=== PATIENT | male | born 1950 | race Caucasian/White ===

== ENCOUNTER 2020-07-16 22:38 | Inpatient (IN) | payer MEDICARE, MEDICAID, SELFPAY ==
--- NOTE | ~2020-07-16 | XR_ITS ---
EXAMINATION: XR abdomen NG/feed tube rechec EXAM DATE: 07/17/2020 07:56 INDICATION: NG recheck TECHNIQUE: Frontal projection(s) of the abdomen for interpretation. Comparison is made to prior exami nation from earlier same day. FINDINGS: The feeding tube has been advanced, both dependent and side-port project over gastric body, expected position. Multiple loops of severely distended air-filled small bowel and moderate amount o f colonic stool again noted. There is no organomegaly. There are no osseous abnormalities identified. IMPRESSION: Nasogastric tube in position. Severely dilated small bowel unchanged. Reviewed, dictated and finalized at location A. IC PUMP TRUCK DRIVER IMPRESSION: Nasogastric tube in position. Severely dilated small bowel unchange d.
--- NOTE | ~2020-07-16 | XR_ITS ---
EXAMINATION: XR abdomen obstructive series DATE: 07/21/2020 10:25 INDICATION: Abdominal distention. TECHNIQUE: Upright and supine views of the abdomen on 3 radiographs were obtained. COMPARISON: Small bowel series 07/19/2020 FINDINGS: There are multiple dilated loops of small bowel. There is oral contrast in the colon and ap pendix. No free intraperitoneal gas. IMPRESSION: 1. Persistently dilated small bowel, likely adynamic ileus. Reviewed, dictated and finalized at location B. UTIVE SALES MANAGER
--- NOTE | ~2020-07-16 | XR_ITS ---
MODIFIED ESOPHAGRAM HISTORY: Dysphagia. TECHNIQUE: Modified barium esophagram was performed by speech pathologist under radiologist fluorosco pic guidance. This was recorded on tape. The exam was reviewed on 07/20/2020 09:23 PULLER OVER. The DAP for this procedure was 1.2 Gycm2. Fluoroscopy time is 1.7 minutes. One fluoroscopic image. FINDINGS: Lateral projection of the cervical spine demonstrates normal alignment. There is trace pe netration with thin liquids without evidence for aspiration. There is normal swallowing function with the remainder of the consistencies.. IMPRESSION: 1: Trace penetration with thin liquids. No aspiration identified. 2: Please refer to speech pathologist report for additional detail. Reviewed, dictated and finalized at location A. ER OVER
--- NOTE | ~2020-07-16 | XR_ITS ---
XR abdomen/kub 1V 07/19/2020 05:43 Indication: Small bowel obstruction Procedure: KUB Comparison: Comparison to multiple prior studies sequentially, with oldest reviewed study dated 10/2019. Findings: NG tube in the stomach. Moderate gas in the colon. No significant small bowel dilation. Mod erate colonic fecal loading. Impression: 1: Nonobstructive bowel gas pattern. Reviewed, dictated and finalized at location A. NG MACHINE ADJUSTER Impression: 1: Nonobstructive bowel gas pattern.
--- NOTE | ~2020-07-16 | US_ITS ---
US right upper quadrant INDICATION: Cirrhosis PROCEDURE: Realtime right upper abdominal ultrasound. COMPARISON: No prior studies for comparison. FINDINGS: The pancreas is normal without focal mass or pancreatic ductal dilation. Liver echotexture is increased, consistent with fatty infiltration. Liver surface is smooth. There is normal directio nal flow in the portal vein. The gallbladder is normal without stones, gallbladder wall thickening or pericholecystic fluid. Comm on bile duct measures 3.7 mm. No sonographic Fontanez's sign. IMPRESSION: 1: Hepatic steatosis. Reviewed, dictated and finalized at location B. GER ADULT IMPRESSION: 1: Hepatic steatosis.
--- NOTE | ~2020-07-16 | XR_ITS ---
SMALL BOWEL SERIES ONLY INDICATION: Small bowel obstruction TECHNIQUE: Serial plain films and fluoroscopic spot films are performed following NG tube administrat ion of 100 cc Omnipaque 350. 0.5 minutes of fluoroscopy. DAP is 11.3. COMPARISON: KUB dated 07/19/2020 FINDINGS: Contrast was followed sequentially through the small bowel. The mucosal pattern is unremar kable. Small bowel is mildly dilated, although no transition point is identified. No evidence for str icture, polyp, diverticula or obstruction of flow of contrast. Transit time to the colon is normal me asuring less than 1 hour. IMPRESSION: 1: Dilated small bowel without delay transit to the colon or focal transition point, most likely asha namic ileus. Reviewed, dictated and finalized at location A. IED RESEARCHER IMPRESSION: 1: Dilated small bowel without delay transit to the colon or focal transition point, most likely adynamic ileus.
--- NOTE | ~2020-07-16 | CT_ITS ---
EXAMINATION: CT abdomen pelvis w con DATE: 07/17/2020 00:04 INDICATION: Dominant all distention TECHNIQUE: Computed tomography (CT) of the abdomen and pelvis was performed with 100 cc Omnipaque 350 intravenous contrast. The dose-length product was 1755.13 mGy-cm. Automated exposure control and ite rative reconstruction technique were employed. COMPARISON: None. FINDINGS: Patchy infiltrates of the lower lung zones. Calcified granuloma left lower lobe. Mild thick ening of the distal esophagus, suspicious for esophagitis. Trace pleural effusions. No pericardial effusion. The liver, spleen, pancreas, adrenal glands are unremarkable. There are bilateral renal cysts. Gallbl adder is contracted. Dilated small bowel loops with decompressed distal small bowel, compatible with obstruction. There is moderate retained fecal material in the distal colon. Bladder is moderately dis tended. Mild spondylosis of the lower thoracic and lumbar spine. No acute bone or joint abnormality i s identified. IMPRESSION: 1. Small bowel obstruction. No definite transition site not identified. 2: Patchy infiltrates of the lower lung zones which may represent atelectasis, scarring and/or pneumo clemente. 3: Thickening of the distal esophagus, suspicious for esophagitis. 4: Trace pleural effusions. Reviewed, dictated and finalized at location B. UTER NETWORKING INSTRUCTOR IMPRESSION: 1. Small bowel obstruction. No definite transition site not identified. 2: Patchy infiltrates of the lower lung zones which may represent atelectasis, scarring and/or pneumonia. 3: Thickening of the distal esophagus, suspicious for esophagitis. 4: Trace pleural effusions.
--- NOTE | ~2020-07-16 | XR_ITS ---
EXAMINATION: XR abdomen/kub 1V EXAM DATE: 07/18/2020 06:21 INDICATION: Small bowel obstruction . TECHNIQUE: Frontal projection(s) of the abdomen for interpretation. Comparison is made to prior exami nation from 07/17/2020. FINDINGS: Feeding tube is in position. There is continued interval improvement in previously seen mo derately distended small bowel, only mildly distended today. There is moderate amount of colonic stoo l and gas. Consider water soluble small bowel series patient is clinically improved. IMPRESSION: 1. Feeding tube in position. 2. Improved, now mild small bowel dilation. Consider water-soluble upper GI if patient is clinically ready. 3. Constipation. Reviewed, dictated and finalized at location A. M CLOTHES PRESS OPERATOR
--- NOTE | ~2020-07-16 | XR_ITS ---
XR abdomen/kub 1V 07/20/2020 09:00 Indication: Small bowel obstruction Procedure: KUB Comparison: Comparison to multiple prior studies sequentially, with oldest reviewed study dated 10/2019. Findings: Contrast is noted throughout the colon with air-fluid levels. The appendix is visualized. M ildly dilated small bowel loops are obscured by contrast. Impression: 1: Moderately distended small bowel and colon, most likely adynamic ileus. Reviewed, dictated and finalized at location A. REMENT CONSULTANT Impression: 1: Moderately distended small bowel and colon, most likely adynamic ileus.
--- NOTE | ~2020-07-16 | XR_ITS ---
EXAMINATION: XR abdomen NG/feed tube rechec EXAM DATE: 07/17/2020 06:29 INDICATION: NG placement TECHNIQUE: Frontal projection(s) of the abdomen for interpretation. Comparison is made to prior exami nation from 07/17/2020. FINDINGS: Feeding tube tip has been advanced, now projects over left upper quadrant, expected locatio n of gastric cardia. Multiple loops of severely distended air-filled small bowel consistent with obst ruction. Moderate amount of colonic stool and gas. IMPRESSION: Feeding tube tip overlying gastric cardia region. Reviewed, dictated and finalized at location A. PROPELLED DREDGE OPERATOR
--- NOTE | ~2020-07-16 | CT_ITS ---
EXAMINATION: CT brain wo con EXAM DATE: 07/17/2020 12:57 INDICATION: Dementia. TECHNIQUE: Spiral CT of the head was performed without contrast. Axial, coronal and sagittal images were reviewed. The dose-length product (DLP) for this examination was 605.33 mGy-cm. The exposure w as tailored according to patient size, and iterative reconstruction (ASIR) was used as additional dos e reduction technique. There is no prior study for comparison. FINDINGS: There is no acute intraparenchymal hemorrhage. No evidence of intraparenchymal brain mass lesion. No evidence of acute infarction. Please note that initial head CT has limited sensitivity f or small or acute infarctions. There are punctate old left basal ganglia and caudate head lacunar in farctions. There is mild periventricular and subcortical hypodensity, nonspecific but probably relat ed to small vessel ischemic disease. There is mild to moderate prominence of the sulci and ventricl es related to cerebral atrophy. There is intracranial carotid arteriosclerosis. There are no extra -axial collections. There is no mass effect or midline shift. The orbits are unremarkable. Soft ti ssue is unremarkable. The visualized sinuses and mastoid air cells are well aerated. IMPRESSION: 1. Punctate old left basal ganglia, caudate head lacunar infarctions. 2. Chronic age related findings. Reviewed, dictated and finalized at location A. ER
--- NOTE | ~2020-07-16 | XR_ITS ---
EXAMINATION: XR abdomen NG/feed tube insert EXAM DATE: 07/17/2020 12:06 INDICATION: NG placed TECHNIQUE: Frontal projection(s) of the abdomen for interpretation. Comparison is made to prior exami nation from earlier same date. FINDINGS: Feeding tube tip and side-port project over left upper quadrant, adequate. There are multip le loops of moderately dilated air-filled small bowel, mild interval improvement. There is no organom egaly. Moderate amount of colonic stool and gas. IMPRESSION: 1. Feeding tube in position. 2. Moderately distended small bowel, mild improvement. Reviewed, dictated and finalized at location A. GHT TRUCKER
--- NOTE | ~2020-07-16 | XR_ITS ---
XR chest 2V 07/20/2020 09:00 Indication: Leukocytosis. Concern for aspiration. Procedure: 2 view chest Comparison: No prior studies for comparison. Findings: Left lower lobe airspace disease. Possible small left effusion. Right basilar atelectasis. Heart size normal. No edema or pneumothorax. No acute osseous abnormality. Impression: 1: Left lower lobe airspace disease, atelectasis versus pneumonia. 2: Possible small left pleural effusion. Reviewed, dictated and finalized at location A. .NET DEVELOPER Impression: 1: Left lower lobe airspace disease, atelectasis versus pneumonia. 2: Possible small left pleural effusion.
--- NOTE | ~2020-07-16 | XR_ITS ---
EXAMINATION: XR abdomen NG/feed tube insert EXAM DATE: 07/17/2020 02:17 INDICATION: Ngt Placement . TECHNIQUE: Frontal projection(s) of the abdomen for interpretation. Comparison is made to prior exami nation from 01/26/2004. FINDINGS: Feeding tube tip is just above the gastroesophageal junction. There are multiple loops of severely dilated air-filled small bowel in the midabdomen, consistent with small bowel obstruction. S ome bibasilar atelectasis. Contrast within the renal collecting system. IMPRESSION: 1. Feeding tube tip above the gastroesophageal junction, could be advanced 5-10 cm. 2. Small bowel obstruction. 3. Basilar atelectasis. Reviewed, dictated and finalized at location A. TIONAL EDUCATION PROFESSIONAL IMPRESSION: 1. Feeding tube tip above the gastroesophageal junction, could be advanced 5-1 0 cm. 2. Small bowel obstruction. 3. Basilar atelectasis.
[2020-07-16 22:47] VITALS: BP 118/67; PULSE 105; RESP 17; TEMP 36.8; O2SAT 94
--- NOTE | 2020-07-16 23:17 | ED.GIBLEED ---
HPI - GI Bleed General Chief complaint: GI Bleed Stated complaint: COFFEE GROUND EMESIS X 1 Time Seen by Provider: 07/16/20 22:57 Source: patient Mode of arrival: ambulatory Limitations: no limitations History of Present Illness HPI Narrative: Patient is a 69-year-old male complaining of vomiting, bright red blood, one episode started tonight. Patient states that he is on Eliquis. Patient denies any abdominal pain, melena, hematochezia or hemoptysis. Patient denies any chest pain or shortness of breath. Patient does have abdominal distention which he states is nothing new, history of liver cirrhosis. Patient is a poor historian. MD complaint: gross hematemesis Related Data Home Medications Medication Instructions Recorded Confirmed atorvastatin 07/16/20 benztropine 07/16/20 clozapine mg 07/16/20 fenofibrate micronized mg 07/16/20 gentamicin drp 07/16/20 lactulose 07/16/20 risperidone mg 07/16/20 risperidone mg 07/16/20 sertraline mg 07/16/20 07/16/20 Allergies Allergy/AdvReac Type Severity Reaction Status Date / Time No Known Allergies Allergy Verified 07/16/20 23:44 Review of Systems Review of Systems: All systems reviewed & are unremarkable except as noted in HPI and below Constitutional: Constitutional: Denies body ache(s), Denies chills, Denies excessive sweating, Denies fatigue, Denies fever(s), Denies headache(s), Denies lethargy, Denies malaise, Denies weakness and Denies weight loss Eyes: Eyes: Denies blurry vision, Denies change in vision and Denies loss of vision ENT: Denies dizziness, Denies ear discharge, Denies headache(s), Denies lip swelling, Denies epistaxis, Denies nasal congestion, Denies neck pain, Denies throat swelling and Denies tongue swelling Cardiovascular: Cardiovascular: Denies chest pain, Denies chest pain at rest, Denies chest pain with activity, Denies diaphoresis, Denies rapid heart rate, Denies edema, Denies irregular heart rhythm, Denies lightheadedness, Denies palpitations, Denies dyspnea and Denies dyspnea on exertion Respiratory: Respiratory: Denies chest congestion, Denies cough, Denies hemoptysis, Denies dyspnea and Denies dyspnea on exertion Gastrointestinal: Gastrointestinal: Denies abdominal pain, Denies melena, Denies hematochezia and Denies diarrhea Musculoskeletal: Musculoskeletal: Denies abnormal gait, Denies deformity, Denies joint swelling, Denies limited range of motion, Denies neck pain and Denies numbness Neurologic: Denies Abnormal speech present, Denies abnormal gait, Denies dizziness, Denies headache(s), Denies focal weakness, Denies loss of vision, Denies numbness, Denies Other visual disturbances, Denies Sensory deficit (Neuro) and Denies weakness Psychiatric: Psychiatric: Denies confusion, Denies depression, Denies auditory hallucinations, Denies homicidal ideation and Denies suicidal ideation Endocrine: Endocrine: Denies cold intolerance, Denies excessive sweating, Denies fatigue, Denies heat intolerance and Denies palpitations Hematologic/Lymphatic: Hematologic/Lymphatic: Denies easy bleeding and Denies easy bruising Allergic/Immunologic: Allergic/Immunologic: Denies lip swelling, Denies throat swelling and Denies tongue swelling PMF Social History Social History Gender identity (if verbalized by the patient): Male Exam Const: General: cooperative, well developed, alert and awake Orientation/consciousness: oriented to person and oriented to place Limitations: no limitations Other: Moderate distress, frail, ill-appearing HENMT: Head: normal to inspection, normocephalic and atraumatic Ears: hearing grossly normal bilaterally, TM normal on the right and TM normal on the left General nose exam: Normal external nose present, Normal nares present and No nasal discharge present Face and sinus: normal facial exam Mouth: Yes Normal oral and palatal mucosa present, Yes lip normal, Yes tongue normal and Yes oropharynx normal Throat: posterior
--- NOTE | 2020-07-16 23:20 | PC.NURSE ---
patient brought to ED room 10 via EMS tonight from [facility] with reported hematoemesis. patient found wandering in hallway shortly after arrival. redirected back to room 10. patient changed into gown. placed on rail manager. patient is alert but oriented x 1-2 at best. unclear on patient's baseline. will review [facility] records. SL placed. labs drawn and sent. patient denies nausea. patient denies pain. MD to room now.
[2020-07-16 23:25] LABS: Basophils Percent Auto 0.2 % (0.2-1.2); Hematocrit 40.9 % (42.0-52.0); Hemoglobin 13.2 g/dL (14.0-18.0); Immature Granulocyte Absolute 0.04 K/mm3 (0.00-0.031); Immature Granulocyte Percent A 0.3 % (0-0.5); Lymphocytes Absolute Auto 2.27 K/mm3 (0.9-3.2); Lymphocytes Percent Auto 18.8 % (18.3-44.2); Mean Corpuscular HGB Conc 32.3 g/dl (32-36); Mean Corpuscular Hemoglobin 29.4 pg (26-34); Mean Corpuscular Volume 91.1 fl (80-100); Mean Platelet Volume 9.9 fl (7.4-10.4); Monocytes Absolute Auto 1.2 K/mm3 (0.1-0.6); Monocytes Percent Auto 10.2 % (2.6-8.5); Neutrophils Absolute Auto 8.5 K/mm3 (1.3-6.7); Neutrophils Percent Auto 70.5 % (45.5-73.1); Platelet Count Result 300 k/mm3 (150-375); Red Blood Count 4.49 M/mm3 (4.6-6.20); Red Cell Distribution Width 14.9 % (11.5-14.5); White Blood Count 12.1 K/mm3 (4.5-10.0)
--- NOTE | 2020-07-16 23:35 | PC.NURSE ---
report given to Lauren BROWN. records from [place] reviewed. chart updated.
[2020-07-16 23:36] LABS: Partial Thromboplastin Time 24.6 SECONDS (22.3-36.8); Prothrombin Time 13.3 Seconds (11.1-14.7)
[2020-07-16 23:37] LABS: Alanine Aminotransferase 15 U/L (4-50); Albumin Level 4.1 g/dL (3.5-5.1); Alkaline Phosphatase 67 U/L (38-126); Anion Gap 10 mmol/L (8-16); Aspartate Amino Transferase 23 U/L (17-59); Bilirubin,Total 0.4 mg/dL (0.2-1.3); Blood Urea Nitrogen 48 mg/dL (9-20); Calcium 9.2 mg/dL (8.4-10.2); Carbon Dioxide 30 mmol/L (22-30); Chloride 102 mmol/L (98-107); Estimated Glomerular Filt Rate 47; Glucose 157 mg/dL (75-110); Lipase 50 U/L (23-300); Potassium 3.5 mmol/L (3.4-5.0); Sodium 142 mmol/L (137-145)
[2020-07-16 23:42] VITALS: PULSE 100; RESP 22; O2SAT 93
[2020-07-16 23:50] VITALS: PULSE 110; TEMP 36.9
[2020-07-16] MEDS: PANTOPRAZOLE SODIUM IV 40 MG VIAL 80 MG IV PUSH (23:50)
[2020-07-16] MEDS: LACTATED RINGERS 1,000 ML 100 ML IV CONT (23:50)
--- NOTE | 2020-07-16 23:52 | PC.NURSE ---
patient has documentation chart for code status and POA.
[2020-07-17] VITALS (13 sets, daily range): BP systolic 136–160; BP diastolic 68–93; PULSE 88–101; RESP 16–33; TEMP 36.6–36.9; O2SAT 92–96; BMI 28.5
[2020-07-17] MEDS: HYDROmorphone HCL INJ (*CRX) 1 MG/ML SYR 0.5 MG IV PUSH (01:33)
[2020-07-17] MEDS: LORazepam INJ (*CRX) 2 MG/ML VIAL 1 MG IV PUSH ×2 (01:33→01:48)
--- NOTE | 2020-07-17 03:54 | ADMGEN ---
This patient, John Youssef Jr, was admitted to 2 Medical Room 240-. Patient/family oriented to hospital policies and general routines including ID bracelet, bed and alarms, visiting hours, pain management, procedures, bathroom and other care routines, personal items, smoking policy, room service/diet, and visiting hours. Information on how to activate the Rapid Response Team has been discussed. Patient/Family are encouraged to report perceived risks to care and to ask questions if they do not understand what they are told or what they should do.
--- NOTE | 2020-07-17 03:54 | PC.NURSE ---
Pt arrived to floor sedated from dilaudid and ativan given in ED. Pt on RA and has stable vitals. Pt arousable to pain for only a few seconds before falling back asleep.
[2020-07-17 09:02] LABS: Lactic Acid Reflex 1.8 mmol/L (0.7-2.1)
--- NOTE | 2020-07-17 09:24 | PM.CNGS ---
Assessment and Plan Assessment and plan (1) Small bowel obstruction: Code(s): K56.609 - Unspecified intestinal obstruction, unspecified as to partial versus complete obstruction Status: Acute Assessment and Plan: This patient presented with hematemesis to the ER and the CT scan of the abdomen and pelvis ended up showing dilated small bowel loops with decompressed distal small bowel, compatible with a small bowel obstruction, as well as a moderate amount of stool in the distal colon. He is unable to provide a history due to his mentation, but on exam he does not appear to have any obvious abdominal scars suggesting he has had previous abdominal surgery. I discussed the case with Dr. Starr who also reviewed the imaging with the Radiologist. We will try treating this conservatively with NG tube decompression, bowel rest, and IV fluids. He is not having any complaints of abdominal pain. May need to consider other options of how to keep the NG tube in place if his confusion does not improve soon. We will continue to monitor the patient with serial abdominal exams and imaging daily. May consider a gastrografin small bowel follow through in a few days after allowing some time for NG tube decompression, to further assess the obstruction. (2) Upper gastrointestinal hemorrhage: Code(s): K92.2 - Gastrointestinal hemorrhage, unspecified Status: Acute Assessment and Plan: Hematemesis prior to admission, but none witnessed since being in the hospital. Thickening of the distal esophagus noted on CT a/p. H/H stable. Continue to trend labs. Gastroenterology has been consulted. Will await their recommendations. (3) Constipation: Qualifiers: Constipation type: unspecified constipation type Qualified Code(s): K59.00 - Constipation, unspecified Code(s): K59.00 - Constipation, unspecified Status: Chronic Assessment and Plan: The amount of stool on the CT scan does suggest that he deals with constipation. We will need to start a bowel regimen once he is started on a diet that will also likely need to be continued on discharge. (4) Urinary retention: Code(s): R33.9 - Retention of urine, unspecified Status: Acute Assessment and Plan: Per the nurse, patient was going to have a straight cath for bladder scan of 500 cc. This could resolve once his mentation improves. Management per Hospitalist. (5) Ascites: Code(s): R18.8 - Other ascites Status: Acute (6) Altered mental status: Code(s): R41.82 - Altered mental status, unspecified Status: Acute Assessment and Plan: Apparently the patient received some Ativan and narcotics prior to my arrival which has made him more lethargic and confused. Management per Hospitalist. Hopefully this improves as the medications wear off. History of Present Illness Consult details Consult date: 07/17/20 Reason for consult: other (Small bowel obstruction) Requesting physician: Harris Grossman MD Narrative: This is a 69-year-old male who presented to the emergency department after having hematemesis witnessed at the intermediate. CT scan of the abdomen and pelvis in the ER demonstrated a small bowel obstruction with no definite transition site identified, patchy infiltrates of the lower lung zones which may represent atelectasis, scarring and/or pneumonia, thickening of the distal esophagus, suspicious for esophagitis, and trace pleural effusions. Labs revealed a white blood cell count of 12,200, hemoglobin 13.2, and hematocrit 40.9. The patient was admitted to the Hospitalist service. Gastroenterology was consulted due to the hematemesis. Our service was consulted for the findings of the small bowel obstruction on the CT scan. An NG tube was placed and KUB this morning around 0730 showed good placement. Upon my arrival into his room this morning, the NG tube was lying in his bed out of his nose. It appears he pulled it out of p
--- NOTE | 2020-07-17 10:32 | PM.IMHP ---
H&P: HPI History of Present Illness Date/Time: 07/17/20 10:32 Chief complaint: Bowel Obstruction, Upper GI Bleed Narrative: John Youssef Jr is a 69 year old male with PMH significant for schizophrenia, Tourette's disorder, dementia, hyperlipidemia, anxiety, dysphagia, and COPD who presented to the emergency department from [facility] for the evaluation of coffee ground emesis x2 on Tuesday and concern for bowel obstruction. The patient is a poor historian and his sister reports that he is minimally verbal and not very interactive. History is obtained from Dr. Reid, the [facility] staff, and the patient's sister and POA, Irma Dickerson. 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 The RN reports that he had dark brown emesis on Tuesday afternoon with absent bowel sounds in the lower quadrants. The patient told the RN it had been awhile since his last bowel movement. He was evaluated by Dr. Reid at the facility and sent to the emergency department due to concern for bowel obstruction. He currently endorses abdominal pain. He points to the LLQ and debbi-umbilical area. He reports that he is passing gas. He also has intermittent belching. He has not had any further emesis or nausea today. He denies chest pain and dyspnea. He denies fever and chills. He denies cough. He does note constipation. Initial workup in the emergency department included CT abdomen/pelvis which demonstrates small bowel obstruction with no definite transition site identified and thickening of the distal esophagus, suspicious for esophagitis. WBC is 12.1 with monocyte predominance. Hb is 13.2. BUN is 48 and Cr 1.5. LFTs and lipase are normal. TSH is normal. Lactic acid is normal at 1.8. He was just tested for COVID-19 07/15/20 and negative. Review of Systems Review of Systems: Narrative: Hx is limited given the patient's mentation. He does answer yes and no to questioning. Additional hx was obtained from the patient's sister and POA as well as the retirement. [facility] Past Medical History Medical History (Updated 07/17/20 @ 13:39 by Harry Starr MD) Anxiety Dementia Dysphagia Hyperlipidemia Schizophrenia Tourettes disease Surgical History Surgical History (Updated 07/17/20 @ 11:00 by Juliana Urias PA-C) No history of previous surgery Family History Family History (Updated 07/17/20 @ 11:01 by Juliana Urias PA-C) Father Coronary artery disease CHF (congestive heart failure) Mother Coronary artery disease Sibling Coronary artery disease Sibling Multiple sclerosis Social History Social History (Updated 07/17/20 @ 11:34 by Juliana Urias PA-C) Social History: Mr. Youssef is a jail resident at [facility] and [facility]. He has been there for 20 years. His parents are and he has two siblings. He is a current smoker and smokes approximately 1-2 packs per week. He does not drink alcohol or use illicit substances. His sister, Jemima Dickerson, is his POA. 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 Smoking status: Current every day smoker Alcohol intake: never Substance use: never Living arrangements: retirement Occupation/Education: unemployed Gender identity (if verbalized by the patient): Male Meds Home Medications and Allergies Home Medications Medication Instructions Recorded Confirmed Type atorvastatin 20 mg PO HS 07/16/20 07/17/20 History benztropine 0.5 mg PO TID 07/16/20 07/17/20 History clozapine 100 mg PO BID 07/16/20 07/17/20 History fenofibrate micronized 67 mg PO DAILY 07/16/20 07/17/20 History lactulose 20 g PO BID 07/16/20 07/17/20 History risperidone 1 mg PO DAILY 07/16/20 07/17/20 History risperidone 2 mg PO HS 07/16/20 07/17/20 History sertraline 25 mg PO BID 07/16/20 07/17/20 History clozapine 300 mg PO HS 07/17/20 07/17/20 History docusate sodium 100 mg PO BID 07/17/20 07/17/20 History folic acid 1 mg PO DAILY 07/17/20 07/17/20 History omega [id number]-arp-fish oi
[2020-07-17 11:18] LABS: Basophils Percent Auto 0.3 % (0.2-1.2); Eosinophils Percent Auto 0.2 % (0-4.4); Hematocrit 42.7 % (42.0-52.0); Hemoglobin 13.5 g/dL (14.0-18.0); Immature Granulocyte Absolute 0.03 K/mm3 (0.00-0.031); Immature Granulocyte Percent A 0.3 % (0-0.5); Lymphocytes Absolute Auto 1.85 K/mm3 (0.9-3.2); Lymphocytes Percent Auto 17.6 % (18.3-44.2); Mean Corpuscular HGB Conc 31.6 g/dl (32-36); Mean Corpuscular Hemoglobin 29.7 pg (26-34); Mean Corpuscular Volume 93.8 fl (80-100); Mean Platelet Volume 10.3 fl (7.4-10.4); Monocytes Absolute Auto 1.1 K/mm3 (0.1-0.6); Monocytes Percent Auto 10.6 % (2.6-8.5); Neutrophils Absolute Auto 7.5 K/mm3 (1.3-6.7); Platelet Count Result 273 k/mm3 (150-375); Red Blood Count 4.55 M/mm3 (4.6-6.20); Red Cell Distribution Width 15.1 % (11.5-14.5); White Blood Count 10.5 K/mm3 (4.5-10.0)
[2020-07-17 11:26] LABS: Alanine Aminotransferase 13 U/L (4-50); Albumin Level 3.7 g/dL (3.5-5.1); Alkaline Phosphatase 61 U/L (38-126); Anion Gap 7 mmol/L (8-16); Aspartate Amino Transferase 20 U/L (17-59); Bilirubin,Total 0.3 mg/dL (0.2-1.3); Blood Urea Nitrogen 33 mg/dL (9-20); Calcium 9.1 mg/dL (8.4-10.2); Carbon Dioxide 30 mmol/L (22-30); Chloride 105 mmol/L (98-107); Estimated CRCL calculation 58 ml/min; Estimated Glomerular Filt Rate > 60; Glucose 131 mg/dL (75-110); Magnesium 1.9 mg/dL (1.6-2.3); Potassium 3.9 mmol/L (3.4-5.0); Sodium 142 mmol/L (137-145)
--- NOTE | 2020-07-17 11:46 | WPDGICN ---
Assessment and Plan Assessment and plan (1) Small bowel obstruction: Code(s): K56.609 - Unspecified intestinal obstruction, unspecified as to partial versus complete obstruction Status: Acute Assessment and Plan: Patient appears to have a small-bowel obstruction. The etiology of this is unclear. Surgery is been consulted. Plan for a initial trial of conservative therapy. NG tube decompression in progress. Likely this SBO accounts for patient's stress gastritis and coffee-ground hematemesis (2) Upper gastrointestinal hemorrhage: Code(s): K92.2 - Gastrointestinal hemorrhage, unspecified Status: Acute Assessment and Plan: coffee-ground hematemesis identified. Hemoglobin has remained stable. Likely this is stress gastritis related to his bowel obstruction. Plan is for IV proton pump inhibitor. Conservative therapy at this time. Main problem appears to be the bowel obstruction. (3) Dementia: Code(s): F03.90 - Unspecified dementia without behavioral disturbance Status: Chronic (4) Schizophrenia: Code(s): F20.9 - Schizophrenia, unspecified Status: Chronic (5) COPD (chronic obstructive pulmonary disease): Code(s): J44.9 - Chronic obstructive pulmonary disease, unspecified Status: Chronic GI Consult Note Consult date/time: 07/17/20 11:46 HPI: John Youssef Jr is a 69 year old male I am asked to see at the request of the emergency room. Patient is a skilled nursing resident. Apparently vomited some bloody return. Described as coffee-grounds. Upon presenting to the emergency room he was noted have a distended abdomen. CT scan of the abdomen was performed raising the question of a small bowel obstruction. Patient is confused and lethargic unable to give any useful history. Review of Systems Review of Systems: ROS unobtainable: Yes unobtainable due to mental status [facility] Past Medical History Medical History (Updated 07/17/20 @ 11:34 by Juliana Urias PA-C) Anxiety Dementia Dysphagia Hyperlipidemia Schizophrenia Tourettes disease Surgical History Surgical History (Updated 07/17/20 @ 11:00 by Juliana Urias PA-C) No history of previous surgery Family History Family History (Updated 07/17/20 @ 11:01 by Juliana Urias PA-C) Father Coronary artery disease CHF (congestive heart failure) Mother Coronary artery disease Sibling Coronary artery disease Sibling Multiple sclerosis Social History Social History (Updated 07/17/20 @ 11:34 by Juliana Urias PA-C) Social History: Mr. Youssef is a retirement resident at [facility] and [facility]. He has been there for 20 years. His parents are and he has two siblings. He is a current smoker and smokes approximately 1-2 packs per week. He does not drink alcohol or use illicit substances. His sister, Jemima Dickerson, is his POA. 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 Smoking status: Current every day smoker Alcohol intake: never Substance use: never Living arrangements: skilled nursing Occupation/Education: unemployed Gender identity (if verbalized by the patient): Male Meds Home Medications and Allergies Home Medications Medication Instructions Recorded Confirmed Type atorvastatin 20 mg PO HS 07/16/20 07/17/20 History benztropine 0.5 mg PO TID 07/16/20 07/17/20 History clozapine 100 mg PO BID 07/16/20 07/17/20 History fenofibrate micronized 67 mg PO DAILY 07/16/20 07/17/20 History lactulose 20 g PO BID 07/16/20 07/17/20 History risperidone 1 mg PO DAILY 07/16/20 07/17/20 History risperidone 2 mg PO HS 07/16/20 07/17/20 History sertraline 25 mg PO BID 07/16/20 07/17/20 History clozapine 300 mg PO HS 07/17/20 07/17/20 History docusate sodium 100 mg PO BID 07/17/20 07/17/20 History folic acid 1 mg PO DAILY 07/17/20 07/17/20 History omega 6-aar-kmr-fish oil [Fish Oil] 1 cap PO TID 07/17/20 07/17/20 History Allergies Allergy/AdvReac Type Severity Reaction Statu
[2020-07-17 12:01] LABS: Hepatitis B Surface Antigen Negative (Negative)
[2020-07-17 12:06] LABS: HAV RESULT Negative (Negative); Hepatitis B Core IgM Result Negative (Negative)
[2020-07-17 12:18] LABS: Hepatitis C Virus Antibody Negative (Negative)
--- NOTE | 2020-07-17 13:31 | PM.PNGS ---
Progress Note: A&P Assessment and Plan (1) Small bowel obstruction: Code(s): K56.609 - Unspecified intestinal obstruction, unspecified as to partial versus complete obstruction Status: Acute Assessment and Plan: No history of previous surgery but does by CT scan appeared to be at least a partial small-bowel obstruction. This is unusual in that he was not having any abdominal pain nausea or vomiting. He does have severe constipation as noted on CT scan. Hopefully with NG suction this will resolve. (2) Upper gastrointestinal hemorrhage: Code(s): K92.2 - Gastrointestinal hemorrhage, unspecified Status: Acute Assessment and Plan: Etiology unclear. GI to see. No blood coming from NG tube at this time. (3) MARCIA (acute kidney injury): Code(s): N17.9 - Acute kidney failure, unspecified Status: Acute Assessment and Plan: Elevated creatinine a 1.5 noted (4) Constipation: Qualifiers: Constipation type: unspecified constipation type Qualified Code(s): K59.00 - Constipation, unspecified Code(s): K59.00 - Constipation, unspecified Status: Chronic Assessment and Plan: Evident on CT scan. Patient not able to give much history on this at this time (5) Altered mental status: Code(s): R41.82 - Altered mental status, unspecified Status: Acute Assessment and Plan: Probably related to Ativan although will need to see if he arouses and displays more of a normal mental status once that has worn off. Subjective Subjective Date/Time Seen: 07/17/20 07:31 Patient is a 69-year-old man who came to the emergency room last night after having hematemesis. He was not really having abdominal pain in or nausea before that but did vomited bright red blood. He had a protuberant probably distended abdomen. It was not tender. [place] [id number]. He was not anemic. His creatinine was up to 1.5 but liver function tests and other electrolytes were normal. CT scan of the abdomen and pelvis showed him to be severely constipated. The small bowel was very dilated as well. There did seem to be a transition point in the distal ileum consistent with partial small-bowel obstruction. An NG tube has been placed and was draining light green when I saw him this morning. He had been given Ativan and was very somnolent such that I could not really arouse him to get any history or verbal feedback. He responded somewhat to abdominal exam but not verbally and no response to verbal stimuli. I reviewed his CT scan of the abdomen and pelvis with Dr. Santos, radiologist, and findings were as above. Patient is seen now in consultation. Review of Systems Review of Systems: All systems reviewed & are unremarkable except as noted in HPI and below (HPI) ROS unobtainable: Yes unobtainable due to mental status Exam Const: General: comfortable, no acute distress and patient obtunded Nutritional Appearance: obese Orientation/consciousness: patient obtunded GI: Inspection: distended, obesity and scar (No scars on abdomen to suggest other surgery) GI Palp: Yes Soft to palpation, No Tenderness to palpation present (GI) (Patient is sedated at time of exam), No Hepatomegaly present, No Splenomegaly present, No Hernia present, No Palpable mass present and No Ascites present Percussion: No Fluid wave present and Yes tympanic to percussion Auscultation: Hypoactive bowel sounds present Objective Data Vital Signs Vital Signs: Vital Signs - 24 hr 07/16/20 22:47 07/16/20 23:42 07/16/20 23:50 Temperature 36.8 C 36.9 C Pulse Rate 105 H 100 110 H Respiratory Rate 17 22 H Blood Pressure 118/67 Pulse Oximetry 94 93 07/17/20 00:35 07/17/20 01:00 07/17/20 01:33 Temperature Pulse Rate 99 100 99 Respiratory Rate 33 H 16 21 H Blood Pressure Pulse Oximetry 92 07/17/20 02:05 07/17/20 02:40 07/17/20 02:45 Temperature Pulse Rate 101 H 98 98
--- NOTE | 2020-07-17 14:47 | PC.NURSE ---
Spoke with [facility] RN about patient's normal orientation. Patient is oriented to only person at baseline and is very forgetful. He is normally pleasantly confused per RN.
[2020-07-17 22:18] LABS: Add Urine Microscopic? YES; Appearance Urine Clear (Clear); Bilirubin Urine Negative (Negative); Blood Urine 1+ (Negative); Color Urine Yellow (Yellow); Glucose Urine UA Negative (Negative); Ketones Urine Negative (Negative); Leukocyte Esterase Ur Negative LEU/UL (Negative); Mucus Urine Rare /lpf; Nitrate Urine Negative (Negative); Protein Urine Negative (Negative); Specific Grav Ur 1.026 (1.001-1.035); Squamous Epithelial Cell Urine Rare /hpf (Few); Urobilinogen Urine Negative mg/dL (<2.0)
[2020-07-18 05:44] LABS: Basophils Percent Auto 0.2 % (0.2-1.2); Hematocrit 35.6 % (42.0-52.0); Hemoglobin 11.4 g/dL (14.0-18.0); Immature Granulocyte Absolute 0.03 K/mm3 (0.00-0.031); Immature Granulocyte Percent A 0.3 % (0-0.5); Lymphocytes Absolute Auto 1.83 K/mm3 (0.9-3.2); Lymphocytes Percent Auto 19.7 % (18.3-44.2); Mean Corpuscular Hemoglobin 28.9 pg (26-34); Mean Corpuscular Volume 90.4 fl (80-100); Mean Platelet Volume 10.1 fl (7.4-10.4); Monocytes Absolute Auto 1.2 K/mm3 (0.1-0.6); Monocytes Percent Auto 12.7 % (2.6-8.5); Neutrophils Absolute Auto 6.2 K/mm3 (1.3-6.7); Neutrophils Percent Auto 67.1 % (45.5-73.1); Platelet Count Result 260 k/mm3 (150-375); Red Blood Count 3.94 M/mm3 (4.6-6.20); Red Cell Distribution Width 14.6 % (11.5-14.5); White Blood Count 9.3 K/mm3 (4.5-10.0)
[2020-07-18 05:47] LABS: Ammonia 22 umol/L (9-30)
[2020-07-18 06:00] VITALS: BP 150/76; PULSE 92; RESP 22; TEMP 36.6; O2SAT 94
[2020-07-18 06:09] LABS: Alanine Aminotransferase 12 U/L (4-50); Albumin Level 3.5 g/dL (3.5-5.1); Alkaline Phosphatase 59 U/L (38-126); Anion Gap 6 mmol/L (8-16); Aspartate Amino Transferase 20 U/L (17-59); Bilirubin,Total 0.4 mg/dL (0.2-1.3); Blood Urea Nitrogen 21 mg/dL (9-20); CRP 5.1 mg/dL (<1.0); Calcium 8.2 mg/dL (8.4-10.2); Carbon Dioxide 30 mmol/L (22-30); Chloride 105 mmol/L (98-107); Estimated CRCL calculation 58 ml/min; Estimated Glomerular Filt Rate > 60; Glucose 135 mg/dL (75-110); Potassium 3.5 mmol/L (3.4-5.0); Sodium 141 mmol/L (137-145)
[2020-07-18 06:58] LABS: Folic Acid > 20.0 ng/mL (2.76->20)
--- NOTE | 2020-07-18 07:10 | PM.PNGS ---
Progress Note: A&P Assessment and Plan (1) Small bowel obstruction: Code(s): K56.609 - Unspecified intestinal obstruction, unspecified as to partial versus complete obstruction Status: Acute Assessment and Plan: good improvement with NG suction now that patient is leaving the NG tube in place. KUB looks better. Exam improved. Continue NG suction and IV fluids again today. Will get Gastrografin upper GI small-bowel follow-through tomorrow. (2) Upper gastrointestinal hemorrhage: Code(s): K92.2 - Gastrointestinal hemorrhage, unspecified Status: Acute Assessment and Plan: No episodes of upper GI bleeding while in the hospital. Agree this is likely a consequence of his bowel obstruction. (3) Constipation: Qualifiers: Constipation type: unspecified constipation type Qualified Code(s): K59.00 - Constipation, unspecified Code(s): K59.00 - Constipation, unspecified Status: Chronic Assessment and Plan: Recommend patient be on a bowel regimen of Metamucil and mineral oil both 1 tbsp b.i.d. once able to take oral intake. (4) Altered mental status: Code(s): R41.82 - Altered mental status, unspecified Status: Acute Assessment and Plan: Much improved today. Still somewhat confused but at least able to converse and leaving his NG tube in place. (5) MARCIA (acute kidney injury): Code(s): N17.9 - Acute kidney failure, unspecified Status: Acute Assessment and Plan: Improved. Creatinine down to 1.1 Subjective Subjective Date/Time Seen: 07/18/20 07:10 Patient reports: no new complaints ( patient alert and conversant this morning.), pain is less (No abdominal pain), flatus, no bowel movement and afebrile Review of Systems Review of Systems: All systems reviewed & are unremarkable except as noted in HPI and below Constitutional: Constitutional: Denies body ache(s), Denies chills, Denies fever(s) and Denies night sweats Cardiovascular: Cardiovascular: Denies chest pain and Denies dyspnea Respiratory: Respiratory: Denies cough and Denies dyspnea Gastrointestinal: Gastrointestinal: Reports as per HPI, Denies abdominal pain, Reports constipation, Denies GI cramping, Denies nausea and Denies vomiting Neurologic: Reports confusion ( But able to converse, answers questions) Psychiatric: Psychiatric: Reports confusion Exam Const: General: comfortable and no acute distress; No confusion Orientation/consciousness: patient oriented x3 and No confusion GI: Inspection: distended and obesity GI Palp: Yes Soft to palpation, No Tenderness to palpation present (GI), No Guarding due to palpation present (GI) and No Rebound tenderness present Auscultation: Hypoactive bowel sounds present Neuro: General: no focal motor deficits Cranial nerves: Yes Equal, round and reactive pupils present, Yes facial symmetry and Yes Midline tongue present Speech: normal speech Extrem: General: no calf tenderness and no edema Psych: Speech and movement: Clear speech present Affect: Anxious affect present Attitude: cooperative Insight: Limited insight present (Psych) Judgement: Limited judgement present (Psych) Objective Data Vital Signs Vital Signs: Vital Signs - 24 hr 07/17/20 14:00 07/17/20 22:00 07/18/20 06:00 Temperature 36.6 C 36.7 C 36.6 C Pulse Rate 94 97 92 Respiratory Rate 16 22 H 22 H Blood Pressure 139/76 154/68 H 150/76 H Pulse Oximetry 95 92 94 Intake/Output Intake/Output: Intake & Output 07/15/20 07/16/20 07/17/20 07/18/20 23:59 23:59 23:59 23:59 Intake Total 1500 500 Output Total 700 950 Balance 800 -450 Meds/Results Medications: Active Medications Generic Name Dose Route Start Last Admin Trade Name Freq PRN Reason Stop Dose Admin Albuterol 2.5 mg 07/17/20 11:22 Albuterol Sulfate Neb 2.5 Mg/0.5 Ml Inh INHALATION Q6HRT PRN Shortness Of Breath or wheeze Pantoprazole Sodium 80 mg/
--- NOTE | 2020-07-18 07:30 | WPDGIPROGNO ---
Subjective Date/time seen: 07/18/20 07:30 Patient more alert today but nonverbal. NG tube remains in place. No bowel movements reported. Review of Systems Review of Systems: ROS unobtainable: Yes unobtainable due to medical condition Exam Narrative: Exam Narrative: As stated patient alert. Nonverbal. Others some gibberish. HEENT exam reveals no icterus. Lungs are clear. Abdomen is softer today no bowel sounds evident. No masses nontender. KUB suggest decreased small-bowel distention. With NG tube decompression. Impression 1. Small bowel obstruction suggested by CT scan. No prior surgeries to suggest adhesions. He may have an ileus is bowel sounds are scant. At some point small-bowel series will be necessary. 2. Constipation suggested by CT scan. Plan is for some cleansing enemas today. Consider small-bowel follow-through with Gastrografin. Trial of Reglan may be of benefit. Objective Data Vital Signs Vital Signs: Vital Signs - 24 hr 07/17/20 14:00 07/17/20 22:00 07/18/20 06:00 Temperature 97.8 F 98.0 F 97.9 F Pulse Rate 94 97 92 Respiratory Rate 16 22 H 22 H Blood Pressure 139/76 154/68 H 150/76 H Pulse Oximetry 95 92 94 Intake/Output Intake/Output: Intake & Output 07/15/20 07/16/20 07/17/20 07/18/20 23:59 23:59 23:59 23:59 Intake Total 1500 500 Output Total 700 950 Balance 800 -450 Meds/Results Medications: Active Medications Generic Name Dose Route Start Last Admin Trade Name Freq PRN Reason Stop Dose Admin Albuterol 2.5 mg 07/17/20 11:22 Albuterol Sulfate Neb 2.5 Mg/0.5 Ml Inh INHALATION Q6HRT PRN Shortness Of Breath or wheeze Pantoprazole Sodium 80 mg/ 500 mls @ 50 mls/hr 07/16/20 23:05 07/18/20 00:19 Dextrose IV CONT 07/19/20 23:06 50 mls/hr .Q10H KEZIA Administration Acetaminophen 1,000 mg in 100 mls @ 400 mls/hr 07/17/20 07:34 Ofirmev 1,000 Mg Ivpb IVPB 07/18/20 07:35 Q6H PRN Pain 1-6 Lorazepam 0.5 mg 07/17/20 11:41 Lorazepam Inj (*Crx) 2 Mg/Ml Vial IV PUSH Q6H PRN Anxiety Morphine Sulfate 2 mg 07/17/20 07:37 Morphine Sulfate (*Crx) 2 Mg/Ml Inj IV PUSH Q4H PRN Pain Rated 7-10 Ondansetron HCl 4 mg 07/17/20 01:04 Ondansetron Inj 4 Mg/2 Ml Vial IV PUSH Q4H PRN Nausea Radiology Results: ITS Impressions Abdomen/Pelvis CT 07/17/20 08:19 IMPRESSION: 1. Small bowel obstruction. No definite transition site not identified. 2: Patchy infiltrates of the lower lung zones which may represent atelectasis, scarring and/or pneumonia. 3: Thickening of the distal esophagus, suspicious for esophagitis. 4: Trace pleural effusions. Upper Quadrant Ultrasound 07/17/20 12:52 IMPRESSION: 1: Hepatic steatosis. Head CT 07/17/20 13:07 IMPRESSION: 1. Punctate old left basal ganglia, caudate head lacunar infarctions. 2. Chronic age related findings. Abdomen X-Ray 07/18/20 07:22 IMPRESSION: 1. Feeding tube in position. 2. Improved, now mild small bowel dilation. Consider water-soluble upper GI if patient is clinically ready. 3. Constipation. Labs Labs: Laboratory Results - last 24 hr 07/17/20 07/17/20 07/17/20 08:36 08:37 08:37 WBC 10.5 H RBC 4.55 L Hgb 13.5 L Hct 42.7 MCV 93.8 MCH 29.7 MCHC 31.6 L RDW 15.1 H Plt Count 273 MPV 10.3 Immature Gran % (Auto) 0.3 Neut % (Auto) 71.0 Lymph % (Auto) 17.6 L [place] % (Auto) 10.6 H Eos % (Auto) 0.2 Baso % (Auto) 0.3 Lymph # (Auto) 1.85 [place] # (Auto) 1.1 H Eos # (Auto) 0.0 Baso # (Auto) 0.0 Abs Immat Gran (auto) 0.03 Absolute Neuts (auto) 7.5 H Absolute Nucleated RBC 0.0 Nucleated RBC % 0.0 Sodium Potassium Chloride Carbon Dioxide Anion Gap BUN Creatinine Estim Creat Clear Calc Estimated GFR Glucose Lactic Acid 1.8 Calcium Magnesium Total Bilirubin AST
--- NOTE | 2020-07-18 09:41 | PM.IMPN ---
Progress Note: A&P Assessment and Plan (1) Small bowel obstruction: Code(s): K56.609 - Unspecified intestinal obstruction, unspecified as to partial versus complete obstruction Status: Acute Assessment and Plan: CT abd/pelvis demonstrates dilated small bowel loops with decompressed distal small bowel compatible with obstruction. Etiology is unclear as he has no surgical hx. He does not have a prior hx of IBD. Lactic acid was normal. Blood cultures obtained and pending. TSH is normal. He is tolerating NG tube well. General surgery is on board. Continue bowel rest, NG tube decompression, analgesics as needed for pain, and antiemetics as needed. Plain films demonstrate improvement today. He is passing flatus. Management per general surgery. (2) Altered mental status: Code(s): R41.82 - Altered mental status, unspecified Status: Resolved Assessment and Plan: Resolved. Pt is at baseline today. Pt was somnolent and lethargic the morning of 12/3 after receiving ativan and dilaudid in the ER. This was the likely cause of his altered mentation as he is back to his baseline. His sister reports that he is minimally verbal. He has underlying psychiatric disorder. He has no focal deficits. CT brain was unremarkable. UA does not suggest UTI. Ammonia is normal. Vitamin B12 is low and will be supplemented. Folate is normal. (3) Esophagitis: Code(s): K20.90 - Esophagitis, unspecified without bleeding Status: Acute Assessment and Plan: Noted on CT abd/pelvis. GI has been consulted. Continue pantoprazole. Appreciate GI input. (4) Upper gastrointestinal hemorrhage: Code(s): K92.2 - Gastrointestinal hemorrhage, unspecified Status: Acute Assessment and Plan: He had two episodes of coffee ground emesis reported by the [facility] staff. Continue protonix, will change protonix gtt to protonix IV BID. Continue to monitor. H&H remain stable and he has not had any further episodes. Appreciated GI input. Likely sequela of stress gastritis from SBO. (5) Urinary retention: Code(s): R33.9 - Retention of urine, unspecified Status: Acute Assessment and Plan: Bladder scan demonstrated approximately 500cc. He is voiding fine at this time. Continue bladder scan PRN. (6) Constipation: Qualifiers: Constipation type: unspecified constipation type Qualified Code(s): K59.00 - Constipation, unspecified Code(s): K59.00 - Constipation, unspecified Status: Chronic Assessment and Plan: He is on docusate and lactulose prior to admission. General surgery is following and will defer to general surgery given SBO. (7) Schizophrenia: Code(s): F20.9 - Schizophrenia, unspecified Status: Chronic Assessment and Plan: He is on risperidone and clozapine prior to admission. He is currently NPO. Will have ativan available PRN. (8) Hyperlipidemia: Code(s): E78.5 - Hyperlipidemia, unspecified Status: Chronic Assessment and Plan: Resume atorvastatin when clinially appropriate. (9) Tourettes disease: Code(s): F95.2 - Tourette's disorder Status: Chronic Assessment and Plan: Resume benzotropine when clinically appropriate. (10) Anxiety: Code(s): F41.9 - Anxiety disorder, unspecified Status: Chronic Assessment and Plan: Resume sertraline when clinically appropriate. (11) Dysphagia: Code(s): R13.10 - Dysphagia, unspecified Status: Chronic Assessment and Plan: He is NPO for now in the setting of small bowel obstruction. Plan for speech therapy evaluation with bedside swallow evaluation when he is no longer NPO. (12) Dementia: Code(s): F03.90 - Unspecified dementia without behavioral disturbance Status: Chronic Assessment and Plan: Chronic. Pt appears at baseline. (13) COPD (chr
[2020-07-18] MEDS: CYANOCOBALAMIN INJ 1,000 MCG/ML VIAL 1000 MCG IM (09:54)
[2020-07-18] MEDS: METOCLOPRAMIDE HCL INJ 10 MG/2 ML VIAL 5 MG IV PUSH ×2 (11:38→18:05)
[2020-07-18] MEDS: SODIUM CHLORIDE 0.9% IV 1,000 ML 75 ML IV CONT (11:38)
--- NOTE | 2020-07-18 13:02 | PC.NURSE ---
Patient passed 5 moderate sized stool balls after receiving fleets enema, tolerated procedure well.
[2020-07-18 14:00] VITALS: BP 137/72; PULSE 87; RESP 16; TEMP 36.9; O2SAT 92
[2020-07-18 19:34] VITALS: BP 154/86; PULSE 89; RESP 22; TEMP 36.6; O2SAT 91
[2020-07-18] MEDS: PANTOPRAZOLE SODIUM IV 40 MG VIAL IV PUSH (20:01)
[2020-07-19] MEDS: SODIUM CHLORIDE 0.9% IV 1,000 ML 75 ML IV CONT ×2 (01:18→15:11)
[2020-07-19] MEDS: METOCLOPRAMIDE HCL INJ 10 MG/2 ML VIAL 5 MG IV PUSH ×5 (01:19→23:17)
[2020-07-19 05:14] VITALS: BP 170/75; PULSE 90; RESP 22; TEMP 36.6; O2SAT 92
[2020-07-19 05:20] LABS: Hemoglobin 11.5 g/dL (14.0-18.0); Mean Corpuscular HGB Conc 31.9 g/dl (32-36); Mean Corpuscular Hemoglobin 28.8 pg (26-34); Mean Platelet Volume 9.8 fl (7.4-10.4); Platelet Count Result 289 k/mm3 (150-375); Red Cell Distribution Width 14.3 % (11.5-14.5)
[2020-07-19 05:36] LABS: Anion Gap 6 mmol/L (8-16); Blood Urea Nitrogen 18 mg/dL (9-20); Calcium 8.3 mg/dL (8.4-10.2); Carbon Dioxide 28 mmol/L (22-30); Chloride 110 mmol/L (98-107); Estimated CRCL calculation 70 ml/min; Estimated Glomerular Filt Rate > 60; Glucose 101 mg/dL (75-110); Magnesium 2.3 mg/dL (1.6-2.3); Potassium 3.3 mmol/L (3.4-5.0); Sodium 144 mmol/L (137-145)
[2020-07-19] MEDS: PANTOPRAZOLE SODIUM IV 40 MG VIAL IV PUSH ×2 (09:05→19:57)
[2020-07-19 09:09] VITALS: PULSE 88; RESP 20; O2SAT 94
[2020-07-19] MEDS: KCL 20 MEQ/SW 100 ML 100 ML 50 MEQ IVPB (09:55)
--- NOTE | 2020-07-19 10:53 | PM.PNGS ---
Progress Note: A&P Assessment and Plan (1) Small bowel obstruction: Code(s): K56.609 - Unspecified intestinal obstruction, unspecified as to partial versus complete obstruction Status: Acute Assessment and Plan: SBS reviewed and largely unremarkable, will clamp NG, if no issues dc later today and start clears Subjective Subjective Date/Time Seen: 07/19/20 10:53 feels ok, want to drink something, multiple BMs overnight Review of Systems Constitutional: Constitutional: Denies anorexia, Denies chills, Denies fever(s), Reports lethargy and Reports weakness Cardiovascular: Cardiovascular: Reports no additional cardiovascular complaints Respiratory: Respiratory: Reports no additional respiratory complaints Gastrointestinal: Gastrointestinal: Denies abdominal pain, Denies belching, Denies bloating, Reports GI cramping, Denies heartburn, Reports diarrhea, Reports loose stools, Denies nausea and Denies vomiting Exam Const: General: comfortable and no acute distress Orientation/consciousness: patient oriented x3 Resp: Effort & Inspection: normal respiratory effort Auscultation: clear to auscultation bilaterally Cardio: Rate: regular rate Rhythm: regular rhythm GI: Inspection: normal to inspection and distended GI Palp: Yes Soft to palpation, No Tenderness to palpation present (GI), No Guarding due to palpation present (GI) and No Rigid due to palpation Other: soft, sl dist, NT Objective Data Vital Signs Vital Signs: Vital Signs - 24 hr 07/18/20 14:00 07/18/20 19:34 07/19/20 05:14 Temperature 36.9 C 36.6 C 36.6 C Pulse Rate 87 89 90 Respiratory Rate 16 22 H 22 H Blood Pressure 137/72 154/86 H 170/75 H Pulse Oximetry 92 91 92 07/19/20 09:09 Temperature Pulse Rate 88 Respiratory Rate 20 Blood Pressure Pulse Oximetry 94 Intake/Output Intake/Output: Intake & Output 07/16/20 07/17/20 07/18/20 07/19/20 23:59 23:59 23:59 23:59 Intake Total 1500 1388 656 Output Total 700 1800 450 Balance 800 -412 206 Meds/Results Medications: Active Medications Generic Name Dose Route Start Last Admin Trade Name Freq PRN Reason Stop Dose Admin Albuterol 2.5 mg 07/17/20 11:22 Albuterol Sulfate Neb 2.5 Mg/0.5 Ml Inh INHALATION Q6HRT PRN Shortness Of Breath or wheeze Sodium Chloride 1,000 mls @ 75 mls/hr 07/18/20 09:55 07/19/20 09:58 Normal Saline Iv IV CONT 75 mls/hr .[id number] KEZIA Infusion Lorazepam 0.5 mg 07/17/20 11:41 Lorazepam Inj (*Crx) 2 Mg/Ml Vial IV PUSH Q6H PRN Anxiety Metoclopramide HCl 5 mg 07/18/20 12:00 07/19/20 05:43 Metoclopramide Hcl Inj 10 Mg/2 Ml Vial IV PUSH 5 mg Q6HR KEZIA Administration Morphine Sulfate 2 mg 07/17/20 07:37 Morphine Sulfate (*Crx) 2 Mg/Ml Inj IV PUSH Q4H PRN Pain Rated 7-10 Ondansetron HCl 4 mg 07/17/20 01:04 Ondansetron Inj 4 Mg/2 Ml Vial IV PUSH Q4H PRN Nausea Pantoprazole Sodium 40 mg 07/18/20 21:00 07/19/20 09:05 Pantoprazole Sodium Iv 40 Mg Vial IV PUSH 40 mg Q12HR KEZIA Administration Radiology Results: ITS Impressions Abdomen/Pelvis CT 07/17/20 08:19 IMPRESSION: 1. Small bowel obstruction. No definite transition site not identified. 2: Patchy infiltrates of the lower lung zones which may represent atelectasis, scarring and/or pneumonia. 3: Thickening of the distal esophagus, suspicious for esophagitis. 4: Trace pleural effusions. Upper Quadrant Ultrasound 07/17/20 12:52 IMPRESSION: 1: Hepatic steatosis. Head CT 07/17/20 13:07 IMPRESSION: 1. Punctate old left basal ganglia, caudate head lacunar infarctions. 2. Chronic age related findings. Abdomen X-Ray 07/19/20 07:58 Impression: 1: Nonobstructive bowel gas pattern. Small Bowel X-Ray 07/19/20 10:33 IMPRESSION: 1: Dilated small bowel without delay transit to the colon or focal transition point, most likely adynamic ileus. Labs
--- NOTE | 2020-07-19 11:56 | PM.IMPN ---
Progress Note: A&P Assessment and Plan (1) Small bowel obstruction: Code(s): K56.609 - Unspecified intestinal obstruction, unspecified as to partial versus complete obstruction Status: Acute Assessment and Plan: CT abd/pelvis demonstrated dilated small bowel loops with decompressed distal small bowel compatible with obstruction. Etiology is unclear as he has no surgical hx. He does not have a prior hx of IBD. Lactic acid was normal. Blood cultures show no growth. TSH is normal. General surgery is on board. He had several bowel movements overnight. Repeat plain films show dilated small bowel without delay transit to the colon or focal transition point. Management per general surgery. Plan to remove NG tube today and try clear liquids. Continue analgesics as needed for pain and antiemetics as needed for nausea and vomiting. (2) Altered mental status: Code(s): R41.82 - Altered mental status, unspecified Status: Resolved Assessment and Plan: Resolved. Pt is back at baseline. Pt was somnolent and lethargic the morning of 12/3 after receiving ativan and dilaudid in the ER. This was the likely cause of his altered mentation as he is back to his baseline. His sister reports that he is minimally verbal. He has underlying psychiatric disorder. He has no focal deficits. CT brain was unremarkable. UA does not suggest UTI. Ammonia is normal. Vitamin B12 is low and will be supplemented. Folate is normal. (3) Esophagitis: Code(s): K20.90 - Esophagitis, unspecified without bleeding Status: Acute Assessment and Plan: Noted on CT abd/pelvis. GI has been consulted. Continue pantoprazole. Appreciate GI input. (4) Upper gastrointestinal hemorrhage: Code(s): K92.2 - Gastrointestinal hemorrhage, unspecified Status: Acute Assessment and Plan: He had two episodes of coffee ground emesis reported by the custodial staff. Protonix IV BID. Continue to monitor. H&H remain stable and he has not had any further episodes. Appreciated GI input. Likely sequela of stress gastritis from SBO. Check guaiac stool testing. (5) Urinary retention: Code(s): R33.9 - Retention of urine, unspecified Status: Resolved Assessment and Plan: Resolved. Bladder scan demonstrated approximately 500cc. He is voiding fine. Continue bladder scan PRN. (6) Constipation: Qualifiers: Constipation type: unspecified constipation type Qualified Code(s): K59.00 - Constipation, unspecified Code(s): K59.00 - Constipation, unspecified Status: Chronic Assessment and Plan: Resolved. He had several bowel movements overnight. He is on docusate and lactulose prior to admission. General surgery is following and will defer to general surgery. (7) Schizophrenia: Code(s): F20.9 - Schizophrenia, unspecified Status: Chronic Assessment and Plan: He is on risperidone and clozapine prior to admission which will be resumed. Continue ativan PRN. (8) Hyperlipidemia: Code(s): E78.5 - Hyperlipidemia, unspecified Status: Chronic Assessment and Plan: Resume atorvastatin. (9) Tourettes disease: Code(s): F95.2 - Tourette's disorder Status: Chronic Assessment and Plan: Resume benzotropine. (10) Anxiety: Code(s): F41.9 - Anxiety disorder, unspecified Status: Chronic Assessment and Plan: Resume sertraline. (11) Dysphagia: Code(s): R13.10 - Dysphagia, unspecified Status: Chronic Assessment and Plan: He is NPO for now in the setting of small bowel obstruction. Plan for speech therapy evaluation with bedside swallow evaluation today. (12) Dementia: Code(s): F03.90 - Unspecified dementia without behavioral disturbance Status: Chronic Assessment and Plan: Chronic. Pt appears at baseline. (13) COPD (chronic obs
--- NOTE | 2020-07-19 12:10 | PCOTNOTE ---
07/19/20: Held therapy this morning due to patient to have testing completed this morning per nursing; will follow up as appropriate for OT treatment session at later time/date
[2020-07-19] MEDS: BENZTROPINE MESYLATE 0.5 MG TABLET PO ×2 (13:00→16:45)
[2020-07-19] MEDS: FOLIC ACID 1 MG TABLET PO (13:00)
[2020-07-19] MEDS: risperiDONE 1 MG TABLET PO (13:00)
--- NOTE | 2020-07-19 13:05 | WPDGIPROGNO ---
Progress Note: A&P Additional Plan GI Paresh for Odalis 19 Jul 2020 Sitter in room. Patient non-verbal. NG out. VSS soft/NT. No LAITH Hct 36. K 3.3 SBS negative A/P Small bowel obstruction: - Cause unclear - Managing medically; Surgery following - Appears to be resolving - NG out; starting clears - Advance as tolerete - Optimize electrolytes - Care with meds that decrease gi motility YESSENIA Kimball [phone] Subjective Date/time seen: 07/19/20 13:05 Objective Data Vital Signs Vital Signs: Vital Signs - 24 hr 07/18/20 14:00 07/18/20 19:34 07/19/20 05:14 Temperature 36.9 C 36.6 C 36.6 C Pulse Rate 87 89 90 Respiratory Rate 16 22 H 22 H Blood Pressure 137/72 154/86 H 170/75 H Pulse Oximetry 92 91 92 07/19/20 09:09 Temperature Pulse Rate 88 Respiratory Rate 20 Blood Pressure Pulse Oximetry 94 Intake/Output Intake/Output: Intake & Output 07/16/20 07/17/20 07/18/20 07/19/20 23:59 23:59 23:59 23:59 Intake Total 1500 1388 656 Output Total 700 1800 450 Balance 800 -412 206 Meds/Results Medications: Active Medications Generic Name Dose Route Start Last Admin Trade Name Freq PRN Reason Stop Dose Admin Albuterol 2.5 mg 07/17/20 11:22 Albuterol Sulfate Neb 2.5 Mg/0.5 Ml Inh INHALATION Q6HRT PRN Shortness Of Breath or wheeze Atorvastatin Calcium 20 mg 07/19/20 21:00 Atorvastatin 20 Mg Tablet PO HS KEZIA Benztropine Mesylate 0.5 mg 07/19/20 13:00 07/19/20 13:00 Benztropine Mesylate 0.5 Mg Tablet PO 0.5 mg TID KEZIA Administration Fenofibrate 67 mg 07/20/20 09:00 Fenofibrate,Micronized 67 Mg Capsule PO DAILY KEZIA Folic Acid 1 mg 07/19/20 12:10 07/19/20 13:00 Folic Acid 1 Mg Tablet PO 1 mg DAILY KEZIA Administration Sodium Chloride 1,000 mls @ 75 mls/hr 07/18/20 09:55 07/19/20 11:40 Normal Saline Iv IV CONT 75 mls/hr .[id number] KEZIA Infusion Lorazepam 0.5 mg 07/17/20 11:41 Lorazepam Inj (*Crx) 2 Mg/Ml Vial IV PUSH Q6H PRN Anxiety Metoclopramide HCl 5 mg 07/18/20 12:00 07/19/20 11:58 Metoclopramide Hcl Inj 10 Mg/2 Ml Vial IV PUSH 5 mg Q6HR KEZIA Administration Morphine Sulfate 2 mg 07/17/20 07:37 Morphine Sulfate (*Crx) 2 Mg/Ml Inj IV PUSH Q4H PRN Pain Rated 7-10 Non-Formulary Medication 300 mg 07/19/20 21:00 Clozapine PO 08/18/20 21:01 HS KEZIA Non-Formulary Medication 100 mg 07/19/20 17:00 Clozapine PO 08/18/20 17:01 BID KEZIA Ondansetron HCl 4 mg 07/17/20 01:04 Ondansetron Inj 4 Mg/2 Ml Vial IV PUSH Q4H PRN Nausea Pantoprazole Sodium 40 mg 07/18/20 21:00 07/19/20 09:05 Pantoprazole Sodium Iv 40 Mg Vial IV PUSH 40 mg Q12HR KEZIA Administration Risperidone 2 mg 07/19/20 21:00 Risperidone 1 Mg Tablet PO HS KEZIA Risperidone 1 mg 07/19/20 12:10 07/19/20 13:00 Risperidone 1 Mg Tablet PO 1 mg DAILY KEZIA Administration Sertraline HCl 25 mg 07/19/20 17:00 Sertraline Hcl 25 Mg Tablet PO BID [facility], [facility]1983 Radiology Results: ITS Impressions Abdomen/Pelvis CT 07/17/20 08:19 IMPRESSION: 1. Small bowel obstruction. No definite transition site not identified. 2: Patchy infiltrates of the lower lung zones which may represent atelectasis, scarring and/or pneumonia. 3: Thickening of the distal esophagus, suspicious for esophagitis. 4: Trace pleural effusions. Upper Quadrant Ultrasound 07/17/20 12:52 IMPRESSION: 1: Hepatic steatosis. Head CT 07/17/20 13:07 IMPRESSION: 1. Punctate old left basal ganglia, caudate head lacunar infarctions. 2. Chronic age related findings. Abdomen X-Ray 07/19/20 07:58 Impression: 1: Nonobstructive bowel gas pattern. Small Bowel X-Ray 07/19/20 10:33 IMPRESSION: 1: Dilated small bowel without delay transit to the colon or focal transition point, most likely adynamic ileus. Labs Labs: Laboratory Results - last 24 hr
[2020-07-19 14:00] VITALS: BP 162/85; PULSE 99; RESP 22; TEMP 37.2; O2SAT 92
--- NOTE | 2020-07-19 14:22 | PCSTNOTE ---
Please refer to the Bedside Swallow Evaluation in the EMR.
[2020-07-19] MEDS: SERTRALINE HCL 25 MG TABLET PO (16:45)
[2020-07-19 17:44] LABS: IFOB Positive Control Positive; Immunochemical Fecal Occult Bl Negative (N)
[2020-07-19] MEDS: ATORVASTATIN 20 MG TABLET PO (19:57)
[2020-07-19] MEDS: risperiDONE 1 MG TABLET 2 MG PO (19:58)
[2020-07-19 22:00] VITALS: BP 151/75; PULSE 86; RESP 16; TEMP 37.1; O2SAT 94
[2020-07-19] MEDS: LORazepam INJ (*CRX) 2 MG/ML VIAL 0.5 MG IV PUSH (23:21)
[2020-07-20] MEDS: SODIUM CHLORIDE 0.9% IV 1,000 ML 75 ML IV CONT (02:04)
[2020-07-20 05:11] LABS: Hematocrit 35.8 % (42.0-52.0); Hemoglobin 11.5 g/dL (14.0-18.0); Mean Corpuscular HGB Conc 32.1 g/dl (32-36); Mean Corpuscular Hemoglobin 29.7 pg (26-34); Mean Corpuscular Volume 92.5 fl (80-100); Mean Platelet Volume 9.7 fl (7.4-10.4); Platelet Count Result 305 k/mm3 (150-375); Red Blood Count 3.87 M/mm3 (4.6-6.20); Red Cell Distribution Width 14.5 % (11.5-14.5); White Blood Count 14.1 K/mm3 (4.5-10.0)
[2020-07-20] MEDS: METOCLOPRAMIDE HCL INJ 10 MG/2 ML VIAL 5 MG IV PUSH ×3 (05:15→17:57)
[2020-07-20 05:22] LABS: Anion Gap 4 mmol/L (8-16); Blood Urea Nitrogen 18 mg/dL (9-20); Calcium 8.4 mg/dL (8.4-10.2); Carbon Dioxide 30 mmol/L (22-30); Chloride 112 mmol/L (98-107); Estimated CRCL calculation 63 ml/min; Estimated Glomerular Filt Rate > 60; Glucose 137 mg/dL (75-110); Potassium 3.6 mmol/L (3.4-5.0); Sodium 146 mmol/L (137-145)
[2020-07-20 06:00] VITALS: BP 162/78; PULSE 89; RESP 16; TEMP 37.1; O2SAT 94
[2020-07-20] MEDS: DEXTROSE 5%/0.45% SOD CHL 1,000 ML 75 ML IV CONT (08:00)
[2020-07-20] MEDS: PANTOPRAZOLE SODIUM IV 40 MG VIAL IV PUSH ×2 (08:06→21:03)
[2020-07-20 08:07] VITALS: PULSE 84; RESP 16; O2SAT 94
[2020-07-20] MEDS: FOLIC ACID 1 MG TABLET PO (08:07)
[2020-07-20] MEDS: SERTRALINE HCL 25 MG TABLET PO ×2 (08:07→17:57)
[2020-07-20] MEDS: risperiDONE 1 MG TABLET PO (08:07)
[2020-07-20] MEDS: BENZTROPINE MESYLATE 0.5 MG TABLET PO ×3 (08:07→17:57)
--- NOTE | 2020-07-20 10:33 | PM.IMPN ---
Progress Note: A&P Assessment and Plan (1) Small bowel obstruction: Code(s): K56.609 - Unspecified intestinal obstruction, unspecified as to partial versus complete obstruction Status: Acute Assessment and Plan: CT abd/pelvis demonstrated dilated small bowel loops with decompressed distal small bowel compatible with obstruction. Etiology is unclear as he has no surgical hx. He does not have a prior hx of IBD. Lactic acid was normal. Blood cultures show no growth. TSH is normal. General surgery is on board. He is having regular bowel movements. NG tube was removed 07/19 and he tolerated CLD. Repeat plain films show moderately distended small bowel and colon suggesting adynamic ileus. Management per general surgery and GI. Continue analgesics as needed for pain and antiemetics as needed for nausea and vomiting. (2) Altered mental status: Code(s): R41.82 - Altered mental status, unspecified Status: Resolved Assessment and Plan: Resolved. Pt is back at baseline. Pt was somnolent and lethargic the morning of 07/17 after receiving ativan and dilaudid in the ER. This was the likely cause of his altered mentation as he is back to his baseline. His sister reports that he is minimally verbal. He has underlying psychiatric disorder. He has no focal deficits. CT brain was unremarkable. UA does not suggest UTI. Ammonia is normal. Vitamin B12 is low and will be supplemented. Folate is normal. (3) Esophagitis: Code(s): K20.90 - Esophagitis, unspecified without bleeding Status: Acute Assessment and Plan: Noted on CT abd/pelvis. GI has been consulted. Continue pantoprazole. Appreciate GI input. (4) Upper gastrointestinal hemorrhage: Code(s): K92.2 - Gastrointestinal hemorrhage, unspecified Status: Acute Assessment and Plan: He had two episodes of coffee ground emesis reported by the [facility] staff prior to admission. He has not had any further episodes. Likely sequela of stress gastritis from SBO. Guaiac stool testing was negative. Continue protonix IV BID. Continue to monitor. H&H remain stable and he has not had any further episodes. Appreciated GI input. (5) Urinary retention: Code(s): R33.9 - Retention of urine, unspecified Status: Acute Assessment and Plan: He had retention overnight and straight cath yielded 700cc. Will continue to monitor with bladder scan PRN. Place najera if retention recurs. Start tamsulosin. He will need to follow-up with urology outpatient. (6) Constipation: Qualifiers: Constipation type: unspecified constipation type Qualified Code(s): K59.00 - Constipation, unspecified Code(s): K59.00 - Constipation, unspecified Status: Chronic Assessment and Plan: Resolved. He is now having regular bowel movements. He is on docusate and lactulose prior to admission. General surgery is following and will defer bowel regumen to general surgery. (7) Schizophrenia: Code(s): F20.9 - Schizophrenia, unspecified Status: Chronic Assessment and Plan: Continue risperidone and clozapine. Continue ativan PRN. (8) Hyperlipidemia: Code(s): E78.5 - Hyperlipidemia, unspecified Status: Chronic Assessment and Plan: Continue atorvastatin. (9) Tourettes disease: Code(s): F95.2 - Tourette's disorder Status: Chronic Assessment and Plan: Continue benzotropine. (10) Anxiety: Code(s): F41.9 - Anxiety disorder, unspecified Status: Chronic Assessment and Plan: Continue sertraline. (11) Dysphagia: Code(s): R13.10 - Dysphagia, unspecified Status: Chronic Assessment and Plan: Bedside swallow evaluation was performed with concern for possible aspiration. [employer] recommended modified barium which shows no evidence of aspiration. Continue thin liquids and soft and easy to chew diet
--- NOTE | 2020-07-20 10:33 | PCSTNOTE ---
Please refer to the Modified Barium Swallow Evaluation in the EMR.
--- NOTE | 2020-07-20 11:03 | WPDGIPROGNO ---
Progress Note: A&P Additional Plan GI Paresh Jacobo 20 Jul 2020 Patient non-verbal. NG out. Luis clears. VSS soft/NT. No LAITH Hct 36. SBS negative A/P Small bowel obstruction: - Cause unclear - Managing medically; Surgery following - Appears to be resolving - NG out; Luis clears - Advance as tolerate - Optimize electrolytes - Care with meds that decrease gi motility Case discussed at bedside with MARY Urias. Final recommendations per Dr. Jacobo. Rehana [facility] [phone] Subjective Date/time seen: 07/20/20 11:03 Objective Data Vital Signs Vital Signs: Vital Signs - 24 hr 07/19/20 14:00 07/19/20 22:00 07/20/20 06:00 Temperature 37.2 C 37.1 C 37.1 C Pulse Rate 99 86 89 Respiratory Rate 22 H 16 16 Blood Pressure 162/85 H 151/75 H 162/78 H Pulse Oximetry 92 94 94 07/20/20 08:07 Temperature Pulse Rate 84 Respiratory Rate 16 Blood Pressure Pulse Oximetry 94 Intake/Output Intake/Output: Intake & Output 07/17/20 07/18/20 07/19/20 07/20/20 23:59 23:59 23:59 23:59 Intake Total 1500 1388 2596 1247 Output Total 700 3598 304 5535 Balance 800 -412 1746 -153 Meds/Results Medications: Active Medications Generic Name Dose Route Start Last Admin Trade Name Freq PRN Reason Stop Dose Admin Albuterol 2.5 mg 07/17/20 11:22 Albuterol Sulfate Neb 2.5 Mg/0.5 Ml Inh INHALATION Q6HRT PRN Shortness Of Breath or wheeze Atorvastatin Calcium 20 mg 07/19/20 21:00 07/19/20 19:57 Atorvastatin 20 Mg Tablet PO 20 mg HS KEZIA Administration Benztropine Mesylate 0.5 mg 07/19/20 13:00 07/20/20 08:07 Benztropine Mesylate 0.5 Mg Tablet PO 0.5 mg TID KEZIA Administration Fenofibrate 67 mg 07/20/20 09:00 Fenofibrate,Micronized 67 Mg Capsule PO DAILY KEZIA Folic Acid 1 mg 07/19/20 12:10 07/20/20 08:07 Folic Acid 1 Mg Tablet PO 1 mg DAILY KEZIA Administration Lorazepam 0.5 mg 07/17/20 11:41 07/19/20 23:21 Lorazepam Inj (*Crx) 2 Mg/Ml Vial IV PUSH 0.5 mg Q6H PRN Administration Anxiety Metoclopramide HCl 5 mg 07/18/20 12:00 07/20/20 05:15 Metoclopramide Hcl Inj 10 Mg/2 Ml Vial IV PUSH 5 mg Q6HR KEZIA Administration Morphine Sulfate 2 mg 07/17/20 07:37 Morphine Sulfate (*Crx) 2 Mg/Ml Inj IV PUSH Q4H PRN Pain Rated 7-10 Non-Formulary Medication 300 mg 07/19/20 21:00 Clozapine PO 08/18/20 21:01 HS KEZIA Non-Formulary Medication 100 mg 07/19/20 17:00 Clozapine PO 08/18/20 17:01 BID KEZIA Ondansetron HCl 4 mg 07/17/20 01:04 Ondansetron Inj 4 Mg/2 Ml Vial IV PUSH Q4H PRN Nausea Pantoprazole Sodium 40 mg 07/18/20 21:00 07/20/20 08:06 Pantoprazole Sodium Iv 40 Mg Vial IV PUSH 40 mg Q12HR KEZIA Administration Risperidone 2 mg 07/19/20 21:00 07/19/20 19:58 Risperidone 1 Mg Tablet PO 2 mg HS KEZIA Administration Risperidone 1 mg 07/19/20 12:10 07/20/20 08:07 Risperidone 1 Mg Tablet PO 1 mg DAILY KEZIA Administration Sertraline HCl 25 mg 07/19/20 17:00 07/20/20 08:07 Sertraline Hcl 25 Mg Tablet PO 25 mg BID KEZIA Administration Tamsulosin HCl 0.4 mg 07/20/20 10:45 Tamsulosin Hcl 0.4 Mg Capsule PO QAM [facility] Radiology Results: ITS Impressions Abdomen/Pelvis CT 07/17/20 08:19 IMPRESSION: 1. Small bowel obstruction. No definite transition site not identified. 2: Patchy infiltrates of the lower lung zones which may represent atelectasis, scarring and/or pneumonia. 3: Thickening of the distal esophagus, suspicious for esophagitis. 4: Trace pleural effusions. Upper Quadrant Ultrasound 07/17/20 12:52 IMPRESSION: 1: Hepatic steatosis. Head CT 07/17/20 13:07 IMPRESSION: 1. Punctate old left basal ganglia, caudate head lacunar infarctions. 2. Chronic age related findings. Small Bowel X-Ray 07/19/20 10:33 IMPRESSION: 1: Dilated small bowel without delay transit to the colon or focal transitio
[2020-07-20] MEDS: TAMSULOSIN HCL 0.4 MG CAPSULE PO (11:17)
--- NOTE | 2020-07-20 11:17 | PM.PNGS ---
Progress Note: A&P Assessment and Plan (1) Small bowel obstruction: Code(s): K56.609 - Unspecified intestinal obstruction, unspecified as to partial versus complete obstruction Status: Acute Assessment and Plan: resolving, exam benign, all imaging reviewed, ADAT per swallow study Subjective Subjective Date/Time Seen: 07/20/20 11:17 no acute issues yesterday, NG out, lilian clears, multiple BMs Review of Systems Review of Systems: ROS unobtainable: Yes unobtainable due to mental status Exam Const: General: comfortable and no acute distress Resp: Effort & Inspection: normal respiratory effort Auscultation: clear to auscultation bilaterally Cardio: Rate: regular rate Rhythm: regular rhythm GI: Inspection: normal to inspection and distended GI Palp: No abdominal tenderness, Yes Soft to palpation, No Tenderness to palpation present (GI) and No Guarding due to palpation present (GI) Other: soft, mod dist, NT Objective Data Vital Signs Vital Signs: Vital Signs - 24 hr 07/19/20 14:00 07/19/20 22:00 07/20/20 06:00 Temperature 37.2 C 37.1 C 37.1 C Pulse Rate 99 86 89 Respiratory Rate 22 H 16 16 Blood Pressure 162/85 H 151/75 H 162/78 H Pulse Oximetry 92 94 94 07/20/20 08:07 Temperature Pulse Rate 84 Respiratory Rate 16 Blood Pressure Pulse Oximetry 94 Intake/Output Intake/Output: Intake & Output 07/17/20 07/18/20 07/19/20 07/20/20 23:59 23:59 23:59 23:59 Intake Total 1500 1388 2596 1247 Output Total 700 8234 416 4347 Balance 800 412 1749 -576 Meds/Results Medications: Active Medications Generic Name Dose Route Start Last Admin Trade Name Freq PRN Reason Stop Dose Admin Albuterol 2.5 mg 07/17/20 11:22 Albuterol Sulfate Neb 2.5 Mg/0.5 Ml Inh INHALATION Q6HRT PRN Shortness Of Breath or wheeze Atorvastatin Calcium 20 mg 07/19/20 21:00 07/19/20 19:57 Atorvastatin 20 Mg Tablet PO 20 mg HS KEZIA Administration Benztropine Mesylate 0.5 mg 07/19/20 13:00 07/20/20 08:07 Benztropine Mesylate 0.5 Mg Tablet PO 0.5 mg TID KEZIA Administration Fenofibrate 67 mg 07/20/20 09:00 Fenofibrate,Micronized 67 Mg Capsule PO DAILY KEZIA Folic Acid 1 mg 07/19/20 12:10 07/20/20 08:07 Folic Acid 1 Mg Tablet PO 1 mg DAILY KEZIA Administration Lorazepam 0.5 mg 07/17/20 11:41 07/19/20 23:21 Lorazepam Inj (*Crx) 2 Mg/Ml Vial IV PUSH 0.5 mg Q6H PRN Administration Anxiety Metoclopramide HCl 5 mg 07/18/20 12:00 07/20/20 11:17 Metoclopramide Hcl Inj 10 Mg/2 Ml Vial IV PUSH 5 mg Q6HR KEZIA Administration Morphine Sulfate 2 mg 07/17/20 07:37 Morphine Sulfate (*Crx) 2 Mg/Ml Inj IV PUSH Q4H PRN Pain Rated 7-10 Non-Formulary Medication 300 mg 07/19/20 21:00 Clozapine PO 08/18/20 21:01 HS KEZIA Non-Formulary Medication 100 mg 07/19/20 17:00 Clozapine PO 08/18/20 17:01 BID KEZIA Ondansetron HCl 4 mg 07/17/20 01:04 Ondansetron Inj 4 Mg/2 Ml Vial IV PUSH Q4H PRN Nausea Pantoprazole Sodium 40 mg 07/18/20 21:00 07/20/20 08:06 Pantoprazole Sodium Iv 40 Mg Vial IV PUSH 40 mg Q12HR KEZIA Administration Risperidone 2 mg 07/19/20 21:00 07/19/20 19:58 Risperidone 1 Mg Tablet PO 2 mg HS KEZIA Administration Risperidone 1 mg 07/19/20 12:10 07/20/20 08:07 Risperidone 1 Mg Tablet PO 1 mg DAILY KEZIA Administration Sertraline HCl 25 mg 07/19/20 17:00 07/20/20 08:07 Sertraline Hcl 25 Mg Tablet PO 25 mg BID KEZIA Administration Tamsulosin HCl 0.4 mg 07/20/20 10:45 07/20/20 11:17 Tamsulosin Hcl 0.4 Mg Capsule PO 0.4 mg QAM KEZIA Administration Radiology Results: ITS Impressions Abdomen/Pelvis CT 07/17/20 08:19 IMPRESSION: 1. Small bowel obstruction. No definite transition site not identified. 2: Patchy infiltrates of the lower lung zones which may represent atelectasis, scarring and/or pneumonia. 3: Thickening of the distal esophagus,
[2020-07-20 11:22] LABS: Add Urine Microscopic? YES; Appearance Urine Clear (Clear); Bilirubin Urine Negative (Negative); Blood Urine 2+ (Negative); Color Urine Yellow (Yellow); Glucose Urine UA Negative (Negative); Ketones Urine Negative (Negative); Leukocyte Esterase Ur Negative LEU/UL (Negative); Mucus Urine Rare /lpf; Nitrate Urine Negative (Negative); Protein Urine 1+ mg/dL (Negative); RBC Urine 21-50 /hpf (0-2); Specific Grav Ur 1.024 (1.001-1.035); Squamous Epithelial Cell Urine Rare /hpf (Few)
[2020-07-20 14:00] VITALS: BP 160/86; PULSE 92; RESP 18; TEMP 36.7; O2SAT 94
[2020-07-20] MEDS: ATORVASTATIN 20 MG TABLET PO (21:02)
[2020-07-20] MEDS: risperiDONE 1 MG TABLET 2 MG PO (21:03)
[2020-07-20 22:00] VITALS: BP 177/81; PULSE 98; RESP 16; TEMP 36.5; O2SAT 94
[2020-07-21] MEDS: METOCLOPRAMIDE HCL INJ 10 MG/2 ML VIAL 5 MG IV PUSH ×2 (02:03→06:45)
[2020-07-21 05:40] LABS: Basophils Absolute Auto 0.1 K/mm3 (0.0-0.1); Basophils Percent Auto 0.4 % (0.2-1.2); Eosinophils Percent Auto 0.1 % (0-4.4); Hematocrit 38.8 % (42.0-52.0); Hemoglobin 12.2 g/dL (14.0-18.0); Immature Granulocyte Absolute 0.12 K/mm3 (0.00-0.031); Immature Granulocyte Percent A 0.9 % (0-0.5); Lymphocytes Percent Auto 9.7 % (18.3-44.2); Mean Corpuscular HGB Conc 31.4 g/dl (32-36); Mean Corpuscular Hemoglobin 29.1 pg (26-34); Mean Corpuscular Volume 92.6 fl (80-100); Mean Platelet Volume 9.8 fl (7.4-10.4); Monocytes Absolute Auto 1.4 K/mm3 (0.1-0.6); Monocytes Percent Auto 10.3 % (2.6-8.5); Neutrophils Absolute Auto 10.6 K/mm3 (1.3-6.7); Neutrophils Percent Auto 78.6 % (45.5-73.1); Platelet Count Result 346 k/mm3 (150-375); Red Blood Count 4.19 M/mm3 (4.6-6.20); Red Cell Distribution Width 14.2 % (11.5-14.5); White Blood Count 13.5 K/mm3 (4.5-10.0)
[2020-07-21 05:55] LABS: Alanine Aminotransferase 21 U/L (4-50); Albumin Level 3.5 g/dL (3.5-5.1); Alkaline Phosphatase 71 U/L (38-126); Anion Gap 6 mmol/L (8-16); Aspartate Amino Transferase 30 U/L (17-59); Bilirubin,Total 0.5 mg/dL (0.2-1.3); Blood Urea Nitrogen 14 mg/dL (9-20); Calcium 8.5 mg/dL (8.4-10.2); Carbon Dioxide 27 mmol/L (22-30); Chloride 112 mmol/L (98-107); Estimated CRCL calculation 78 ml/min; Estimated Glomerular Filt Rate > 60; Glucose 142 mg/dL (75-110); Magnesium 2.1 mg/dL (1.6-2.3); Potassium 3.6 mmol/L (3.4-5.0); Sodium 145 mmol/L (137-145)
[2020-07-21 06:00] VITALS: BP 159/88; PULSE 104; RESP 16; TEMP 37.2; O2SAT 94
--- NOTE | 2020-07-21 09:11 | PM.IMPN ---
Progress Note: A&P Assessment and Plan (1) Small bowel obstruction: Code(s): K56.609 - Unspecified intestinal obstruction, unspecified as to partial versus complete obstruction Status: Acute Assessment and Plan: CT abd/pelvis demonstrated dilated small bowel loops with decompressed distal small bowel compatible with obstruction. Etiology is unclear as he has no surgical hx. He does not have a prior hx of IBD. Lactic acid was normal. Blood cultures show no growth. TSH is normal. General surgery is on board. He continues to have regular bowel movements. NG tube was removed 07/19 and he tolerated CLD. Repeat plain films show moderately distended small bowel and colon suggesting adynamic ileus. Management per general surgery and GI. Continue analgesics as needed for pain and antiemetics as needed for nausea and vomiting. Will repeat plain films as abdomen is distended. (2) Pneumonia: Code(s): J18.9 - Pneumonia, unspecified organism Status: Acute Assessment and Plan: CXR shows possible LLQ infiltrate and WBC has increased. Will treat for pneumonia with IV ceftriaxone and doxycycline. Check urine legionella and pneumococcal antigens. Check sputum culture. (3) Altered mental status: Code(s): R41.82 - Altered mental status, unspecified Status: Resolved Assessment and Plan: Pt was somnolent and lethargic the morning of 07/17 after receiving ativan and dilaudid in the ER. This was the likely cause of his altered mentation. His sister reports that he is minimally verbal. He has underlying Tourettes and schizophrenia. He has no focal deficits. CT brain was unremarkable. UA does not suggest UTI. Ammonia is normal. Vitamin B12 is low and will be supplemented. Folate is normal. He is talking to himself today in [place]. He has underlying Tourettes and shizophrenia. He has not had his clozapine. This is non-formulary. I have tried to reach out to the custodial and left a voicemail to see if this can be brought in. Stop metoclopramide. EDIT: Spoke with Fatoumata BROWN who cares for John. They will bring in his clozapine today. She reports that he often mumbles to himself with nonsensical speech which is his baseline. She also notes he is minimally verbal and will sometimes act like he is typing in the air. (4) Esophagitis: Code(s): K20.90 - Esophagitis, unspecified without bleeding Status: Acute Assessment and Plan: Noted on CT abd/pelvis. GI has been consulted. Continue pantoprazole. Appreciate GI input. (5) Upper gastrointestinal hemorrhage: Code(s): K92.2 - Gastrointestinal hemorrhage, unspecified Status: Acute Assessment and Plan: He had two episodes of coffee ground emesis reported by the custodial staff prior to admission. He has not had any further episodes. Likely sequela of stress gastritis from SBO. Guaiac stool testing was negative. Continue protonix IV BID. Continue to monitor. H&H remain stable and he has not had any further episodes. GI is following. (6) Urinary retention: Code(s): R33.9 - Retention of urine, unspecified Status: Acute Assessment and Plan: He had retention overnight and straight cath yielded 700cc. Will continue to monitor with bladder scan PRN. Tenorio was placed overnight. Tamsulosin was initiated 07/20. I have asked urology to see him. Appreciate uroloy input. (7) Constipation: Qualifiers: Constipation type: unspecified constipation type Qualified Code(s): K59.00 - Constipation, unspecified Code(s): K59.00 - Constipation, unspecified Status: Chronic Assessment and Plan: Resolved. He is now having regular bowel movements. He is on docusate and lactulose prior to admission. General surgery is following and will defer bowel regumen to general surgery. 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
[2020-07-21] MEDS: SERTRALINE HCL 25 MG TABLET PO ×2 (09:12→16:35)
[2020-07-21] MEDS: risperiDONE 1 MG TABLET PO (09:12)
[2020-07-21] MEDS: amLODIPine BESYLATE 5 MG TABLET PO (09:12)
[2020-07-21] MEDS: FOLIC ACID 1 MG TABLET PO (09:12)
[2020-07-21] MEDS: DOXYCYCLINE HYCLATE 100 MG TABLET PO (09:12)
[2020-07-21] MEDS: TAMSULOSIN HCL 0.4 MG CAPSULE PO (09:12)
[2020-07-21] MEDS: BENZTROPINE MESYLATE 0.5 MG TABLET PO ×3 (09:12→16:34)
[2020-07-21] MEDS: ENOXAPARIN 40 MG/0.4 ML SYRINGE SUB-Q (09:13)
[2020-07-21] MEDS: PANTOPRAZOLE SODIUM IV 40 MG VIAL IV PUSH ×2 (09:13→20:36)
[2020-07-21 09:40] VITALS: PULSE 88; RESP 20
[2020-07-21] MEDS: ALBUTEROL SULFATE NEB 2.5 MG/0.5 ML INH INHALATION (09:43)
--- NOTE | 2020-07-21 09:47 | WPDGIPROGNO ---
Progress Note: A&P Additional Plan Patient's mental status unchanged. Uttering gibberish. He has passed a bowel movement. Denies any abdominal pain. Physical exam reveals abdomen to be rotund. Soft bowel sounds are present no organomegaly. Nontender. Bowel movements noted. Small bowel series with no obstruction. Impression 1. Ileus more likely than small-bowel obstruction. Clinically improving. Plan is to continue laxatives. We will discontinue the Reglan. 2. Mental status changes. Appears to be more than just simple dementia. Subjective Date/time seen: 07/21/20 09:47 Objective Data Vital Signs Vital Signs: Vital Signs - 24 hr 07/20/20 14:00 07/20/20 22:00 07/21/20 06:00 Temperature 98.0 F 97.7 F 98.9 F Pulse Rate 92 98 104 H Respiratory Rate 18 16 16 Blood Pressure 160/86 H 177/81 H 159/88 H Pulse Oximetry 94 94 94 Intake/Output Intake/Output: Intake & Output 07/18/20 07/19/20 07/20/20 07/21/20 23:59 23:59 23:59 23:59 Intake Total 1388 2596 2007 1300 Output Total 6007 496 9691 600 Balance -412 1746 -818 700 Meds/Results Medications: Active Medications Generic Name Dose Route Start Last Admin Trade Name Freq PRN Reason Stop Dose Admin Albuterol 2.5 mg 07/17/20 11:22 07/21/20 09:43 Albuterol Sulfate Neb 2.5 Mg/0.5 Ml Inh INHALATION 2.5 mg Q6HRT PRN Administration Shortness Of Breath or wheeze Amlodipine Besylate 5 mg 07/21/20 09:00 07/21/20 09:12 Amlodipine Besylate 5 Mg Tablet PO 5 mg QAM KEZIA Administration Atorvastatin Calcium 20 mg 07/19/20 21:00 07/20/20 21:02 Atorvastatin 20 Mg Tablet PO 20 mg HS KEZIA Administration Benztropine Mesylate 0.5 mg 07/19/20 13:00 07/21/20 09:12 Benztropine Mesylate 0.5 Mg Tablet PO 0.5 mg TID KEZIA Administration Doxycycline Hyclate 100 mg 07/21/20 09:00 07/21/20 09:12 Doxycycline Hyclate 100 Mg Tablet PO 100 mg Q12HR KEZIA Administration Enoxaparin Sodium 40 mg 07/21/20 09:00 07/21/20 09:13 Enoxaparin 40 Mg/0.4 Ml Syringe SUB-Q 40 mg DAILY KEZIA Administration Fenofibrate 67 mg 07/20/20 09:00 Fenofibrate,Micronized 67 Mg Capsule PO DAILY KEZIA Folic Acid 1 mg 07/19/20 12:10 07/21/20 09:12 Folic Acid 1 Mg Tablet PO 1 mg DAILY KEZIA Administration Hydralazine HCl 10 mg 07/21/20 07:28 Hydralazine Hcl 20 Mg/Ml Vial IV PUSH Q8H PRN SBP >180, DBP >100 Ceftriaxone Sodium/Dextrose 1 gm in 50 mls @ 100 mls/hr 07/21/20 06:00 07/21/20 09:14 Rocephin 1 Gm/D5w 50 Ml IVPB 100 mls/hr Q24H KEZIA Administration Lorazepam 0.5 mg 07/17/20 11:41 07/19/20 23:21 Lorazepam Inj (*Crx) 2 Mg/Ml Vial IV PUSH 0.5 mg Q6H PRN Administration Anxiety Morphine Sulfate 2 mg 07/17/20 07:37 Morphine Sulfate (*Crx) 2 Mg/Ml Inj IV PUSH Q4H PRN Pain Rated 7-10 Non-Formulary Medication 300 mg 07/19/20 21:00 Clozapine PO 08/18/20 21:01 HS KEZIA Non-Formulary Medication 100 mg 07/19/20 17:00 Clozapine PO 08/18/20 17:01 BID KEZIA Ondansetron HCl 4 mg 07/17/20 01:04 Ondansetron Inj 4 Mg/2 Ml Vial IV PUSH Q4H PRN Nausea Pantoprazole Sodium 40 mg 07/18/20 21:00 07/21/20 09:13 Pantoprazole Sodium Iv 40 Mg Vial IV PUSH 40 mg Q12HR KEZIA Administration Risperidone 2 mg 07/19/20 21:00 07/20/20 21:03 Risperidone 1 Mg Tablet PO 2 mg HS KEZIA Administration Risperidone 1 mg 07/19/20 12:10 07/21/20 09:12 Risperidone 1 Mg Tablet PO 1 mg DAILY KEZIA Administration Sertraline HCl 25 mg 07/19/20 17:00 07/21/20 09:12 Sertraline Hcl 25 Mg Tablet PO 25 mg BID KEZIA Administration Tamsulosin HCl 0.4 mg 07/20/20 10:45 07/21/20 09:12 Tamsulosin Hcl 0.4 Mg Capsule PO 0.4 mg QAM KEZIA Administration Radiology Results: ITS Impressions Abdomen/Pelvis CT 07/17/20 08:19 IMPRESSION: 1. Small bowel obstruction. No definite transition site not identified. 2: Patchy infilt
[2020-07-21 09:49] VITALS: PULSE 93; RESP 20
--- NOTE | 2020-07-21 12:19 | PM.PNGS ---
Progress Note: A&P Assessment and Plan (1) Small bowel obstruction: Code(s): K56.609 - Unspecified intestinal obstruction, unspecified as to partial versus complete obstruction Status: Acute Assessment and Plan: Resolving. Bowels are moving and patient is now tolerating a regular diet. Would recommend continuing laxatives on discharge. We will sign off at this time. No follow-up needed. Please let us know if there are any surgical needs in the future. Additional Plan Discussed the patient's case with Dr. Starr today. Subjective Subjective Date/Time Seen: 07/21/20 10:19 Patient reports: no new complaints Interval history: Patient seen and examined. He has unintelligible speech but he is able to answer yes or no to certain questions. Denies abdominal pain or nausea. 4 BMs documented from overnight. Review of Systems Review of Systems: ROS unobtainable: Yes unobtainable due to medical condition Exam Const: General: comfortable and no acute distress Limitations: language barrier GI: Inspection: distended and obesity GI Palp: Yes Soft to palpation, No Tenderness to palpation present (GI) and No Rebound tenderness present Auscultation: normal bowel sounds Skin: General skin exam: normal color Neuro: General: moves all extremities and no focal motor deficits Speech: Abnormal speech present Details: garbled (unintelligible) Gait exam (Neuro): Unable to assess gait Extrem: General: normal to inspection, no calf tenderness and no edema Psych: Insight: Limited insight present (Psych) Judgement: Limited judgement present (Psych) Objective Data Vital Signs Vital Signs: Vital Signs - 24 hr 07/20/20 14:00 07/20/20 22:00 07/21/20 06:00 Temperature 98.0 F 97.7 F 98.9 F Pulse Rate 92 98 104 H Respiratory Rate 18 16 16 Blood Pressure 160/86 H 177/81 H 159/88 H Pulse Oximetry 94 94 94 07/21/20 09:40 07/21/20 09:49 Temperature Pulse Rate 88 93 Respiratory Rate 20 20 Blood Pressure Pulse Oximetry Intake/Output Intake/Output: Intake & Output 07/18/20 07/19/20 07/20/20 07/21/20 23:59 23:59 23:59 23:59 Intake Total 1388 2596 2007 1780 Output Total 3364 746 8611 600 Balance -412 1746 -818 1180 Meds/Results Medications: Active Medications Generic Name Dose Route Start Last Admin Trade Name Freq PRN Reason Stop Dose Admin Albuterol 2.5 mg 07/17/20 11:22 07/21/20 09:43 Albuterol Sulfate Neb 2.5 Mg/0.5 Ml Inh INHALATION 2.5 mg Q6HRT PRN Administration Shortness Of Breath or wheeze Amlodipine Besylate 5 mg 07/21/20 09:00 07/21/20 09:12 Amlodipine Besylate 5 Mg Tablet PO 5 mg QAM KEZIA Administration Atorvastatin Calcium 20 mg 07/19/20 21:00 07/20/20 21:02 Atorvastatin 20 Mg Tablet PO 20 mg HS KEZIA Administration Benztropine Mesylate 0.5 mg 07/19/20 13:00 07/21/20 09:12 Benztropine Mesylate 0.5 Mg Tablet PO 0.5 mg TID KEZIA Administration Doxycycline Hyclate 100 mg 07/21/20 09:00 07/21/20 09:12 Doxycycline Hyclate 100 Mg Tablet PO 100 mg Q12HR KEZIA Administration Enoxaparin Sodium 40 mg 07/21/20 09:00 07/21/20 09:13 Enoxaparin 40 Mg/0.4 Ml Syringe SUB-Q 40 mg DAILY KEZIA Administration Fenofibrate 67 mg 07/20/20 09:00 Fenofibrate,Micronized 67 Mg Capsule PO DAILY KEZIA Folic Acid 1 mg 07/19/20 12:10 07/21/20 09:12 Folic Acid 1 Mg Tablet PO 1 mg DAILY KEZIA Administration Hydralazine HCl 10 mg 07/21/20 07:28 Hydralazine Hcl 20 Mg/Ml Vial IV PUSH Q8H PRN SBP >180, DBP >100 Ceftriaxone Sodium/Dextrose 1 gm in 50 mls @ 100 mls/hr 07/21/20 06:00 07/21/20 09:14 Rocephin 1 Gm/D5w 50 Ml IVPB 100 mls/hr Q24H KEZIA Administration Lorazepam 0.5 mg 07/17/20 11:41 07/19/20 23:21 Lorazepam Inj (*Crx) 2 Mg/Ml Vial IV PUSH 0.5 mg Q6H PRN Administration Anxiety Morphine Sulfate 2 mg 07/17/20 07:37 Morphine Sulfate (*Crx) 2 Mg/Ml Inj IV PUSH Q4H PRN Pain Rate
[2020-07-21 14:00] VITALS: BP 113/48; PULSE 88; RESP 22; TEMP 36.6; O2SAT 91
--- NOTE | 2020-07-21 14:35 | WPDURCON ---
Assessment and Plan Assessment and plan (1) Urinary retention: Code(s): R33.9 - Retention of urine, unspecified Status: Acute Assessment and Plan: Continue Tamsulosin, will add Finasteride. CT negative for urologic findings. Would recommmend a najera for 7-10 days then a voiding trial at the senior care. If he fails at the senior care, he should have a najera re-placed and follow up with us. NO further recommendation at this time. (2) BPH (benign prostatic hyperplasia): Code(s): N40.0 - Benign prostatic hyperplasia without lower urinary tract symptoms Status: Acute Urology Consult Note HPI Date Seen: 07/21/20 Requesting Physician: Juliana Urias PA-C Primary Care Provider: Karen BecerraMD Consult Narrative Narrative: John Youssef is a 69 year old male who presented to the ER on 07/16/2020 with c/o vomiting red blood from the senior care nurse. He is on Eliquis and has chronic abdominal distension. He was diagnosed with an ileus of the bowel. He has a history of cirrhosis of the liver. He also has schizophrenia, Tourette's disorder, dementia and anxiety. His WBC is 13.5 which is trending downward, creatinine is normal at 0.80, UA is negative for suspicious infection. Urine is clear. Najera was inserted last night after continuous elevated bladder scans >500cc and a straight cath at 700cc last night prior to insertion. He was started on Tamsulosin yesterday. The patient is unable to answer questions and is not oriented to place, person or date/year. He is unable to provide any medical history. All information has been gathered from his RN on the floor and the chart. Review of Systems Review of Systems: ROS unobtainable: Yes unobtainable due to mental status PMFSH Past Medical History Medical History Anxiety Dementia Dysphagia Hyperlipidemia Schizophrenia Tourettes disease Surgical History Surgical History No history of previous surgery Family History Family History Father Coronary artery disease CHF (congestive heart failure) Mother Coronary artery disease Sibling Coronary artery disease Sibling Multiple sclerosis Social History Social History Social History: Mr. Youssef is a [facility] resident at [facility] He has been there for 20 years. His parents are and he has two siblings. He is a current smoker and smokes approximately 1-2 packs per week. He does not drink alcohol or use illicit substances. His sister, Jemima Dickerson, is his POA. 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 Smoking status: Current every day smoker Alcohol intake: never Substance use: never Living arrangements: senior care Occupation/Education: unemployed Gender identity (if verbalized by the patient): Male Meds Home Medications and Allergies Home Medications Medication Instructions Recorded Confirmed Type atorvastatin 20 mg PO HS 07/16/20 07/17/20 History benztropine 0.5 mg PO TID 07/16/20 07/17/20 History clozapine 100 mg PO BID 07/16/20 07/17/20 History fenofibrate micronized 67 mg PO DAILY 07/16/20 07/17/20 History lactulose 20 g PO BID 07/16/20 07/17/20 History risperidone 1 mg PO DAILY 07/16/20 07/17/20 History risperidone 2 mg PO HS 07/16/20 07/17/20 History sertraline 25 mg PO BID 07/16/20 07/17/20 History clozapine 300 mg PO HS 07/17/20 07/17/20 History docusate sodium 100 mg PO BID 07/17/20 07/17/20 History folic acid 1 mg PO DAILY 07/17/20 07/17/20 History omega 3-sad-[id number]-fish oil [Fish Oil] 1 cap PO TID 07/17/20 07/17/20 History Allergies Allergy/AdvReac Type Severity Reaction Status Date / Time No Known Allergies Allergy Verified 07/17/20 01:10 Vital Signs Vital Signs - 24 hr 07/20/20 22:00 07/21/20 06:00 07/21/20 09:40
--- NOTE | 2020-07-21 15:02 | PHAR ---
PT'S HOME MEDS CLOZAPINE 100 MG TAB AND FENOFIBRATE 67 MG CAPSULE VERIFIED BY PHARMACY
[2020-07-21] MEDS: FENOFIBRATE,MICRONIZED 67 MG CAPSULE PO (16:34)
--- NOTE | 2020-07-21 16:56 | PC.NURSE ---
Received home medications Fenofibrate and Clozapine from patients [facility]. Home medications locked in patients locker at bedside.
[2020-07-21] MEDS: ATORVASTATIN 20 MG TABLET PO (20:36)
[2020-07-21] MEDS: risperiDONE 1 MG TABLET 2 MG PO (20:36)
[2020-07-21 22:00] VITALS: BP 136/71; PULSE 94; RESP 18; TEMP 36.7; O2SAT 96
[2020-07-21 23:58] LABS: SARS-CoV-2 RNA PCR Negative
[2020-07-22 06:00] VITALS: BP 178/85; PULSE 91; RESP 18; TEMP 36.3; O2SAT 97
[2020-07-22] MEDS: amLODIPine BESYLATE 5 MG TABLET PO (09:08)
[2020-07-22] MEDS: FINASTERIDE 5 MG TABLET PO (09:09)
[2020-07-22] MEDS: BENZTROPINE MESYLATE 0.5 MG TABLET PO (09:09)
[2020-07-22] MEDS: ENOXAPARIN 40 MG/0.4 ML SYRINGE SUB-Q (09:09)
[2020-07-22] MEDS: FENOFIBRATE,MICRONIZED 67 MG CAPSULE PO (09:10)
[2020-07-22] MEDS: FOLIC ACID 1 MG TABLET PO (09:11)
[2020-07-22] MEDS: SERTRALINE HCL 25 MG TABLET PO (09:13)
[2020-07-22] MEDS: TAMSULOSIN HCL 0.4 MG CAPSULE PO (09:13)
[2020-07-22] MEDS: risperiDONE 1 MG TABLET PO (09:13)
--- NOTE | 2020-07-22 10:19 | WPDGIPROGNO ---
Progress Note: A&P Additional Plan Patient still unable to converse. Verbalizes only gibberish. He has passed several bowel movements. Physical exam reveals abdomen be distended bowel sounds are present soft nontender. X-ray studies consistent with ileus. No obstruction identified. Impression 1. Constipation, ileus now resolved. Plan to continue stool softeners and laxatives long-term. 2. Mental status changes. These may be chronic. 3. Schizophrenia. 4. Coffee-ground emesis on admission. Likely secondary to stress gastritis from his ileus and/or obstruction. No further workup warranted. He may benefit from Pepcid for a brief interval. Advance diet as tolerated. Subjective Date/time seen: 07/22/20 10:19 Objective Data Vital Signs Vital Signs: Vital Signs - 24 hr 07/21/20 14:00 07/21/20 22:00 07/22/20 06:00 Temperature 98 F 98.0 F 97.3 F L Pulse Rate 88 94 91 Respiratory Rate 22 H 18 18 Blood Pressure 113/48 L 136/71 178/85 H Pulse Oximetry 91 96 97 Intake/Output Intake/Output: Intake & Output 07/19/20 07/20/20 07/21/20 07/22/20 23:59 23:59 23:59 23:59 Intake Total 2596 7294 2810 490 Output Total 850 2825 1850 800 Balance 1746 -818 960 -310 Meds/Results Medications: Active Medications Generic Name Dose Route Start Last Admin Trade Name Freq PRN Reason Stop Dose Admin Albuterol 2.5 mg 07/17/20 11:22 07/21/20 09:43 Albuterol Sulfate Neb 2.5 Mg/0.5 Ml Inh INHALATION 2.5 mg Q6HRT PRN Administration Shortness Of Breath or wheeze Amlodipine Besylate 5 mg 07/21/20 09:00 07/22/20 09:08 Amlodipine Besylate 5 Mg Tablet PO 5 mg QAM KEZIA Administration Atorvastatin Calcium 20 mg 07/19/20 21:00 07/21/20 20:36 Atorvastatin 20 Mg Tablet PO 20 mg HS KEZIA Administration Benztropine Mesylate 0.5 mg 07/19/20 13:00 07/22/20 09:09 Benztropine Mesylate 0.5 Mg Tablet PO 0.5 mg TID KEZIA Administration Enoxaparin Sodium 40 mg 07/21/20 09:00 07/22/20 09:09 Enoxaparin 40 Mg/0.4 Ml Syringe SUB-Q 40 mg DAILY KEZIA Administration Fenofibrate 67 mg 07/21/20 15:05 07/22/20 09:10 Fenofibrate,Micronized 67 Mg Capsule PO 67 mg DAILY KEZIA Administration Finasteride 5 mg 07/22/20 09:00 07/22/20 09:09 Finasteride 5 Mg Tablet PO 5 mg QAM KEZIA Administration Folic Acid 1 mg 07/19/20 12:10 07/22/20 09:11 Folic Acid 1 Mg Tablet PO 1 mg DAILY KEZAI Administration Hydralazine HCl 10 mg 07/21/20 07:28 Hydralazine Hcl 20 Mg/Ml Vial IV PUSH Q8H PRN SBP >180, DBP >100 Ceftriaxone Sodium/Dextrose 1 gm in 50 mls @ 100 mls/hr 07/21/20 06:00 07/22/20 06:20 Rocephin 1 Gm/D5w 50 Ml IVPB Infused Q24H KEZIA Infusion Lorazepam 0.5 mg 07/17/20 11:41 07/19/20 23:21 Lorazepam Inj (*Crx) 2 Mg/Ml Vial IV PUSH 0.5 mg Q6H PRN Administration Anxiety Morphine Sulfate 2 mg 07/17/20 07:37 Morphine Sulfate (*Crx) 2 Mg/Ml Inj IV PUSH Q4H PRN Pain Rated 7-10 Ondansetron HCl 4 mg 07/17/20 01:04 Ondansetron Inj 4 Mg/2 Ml Vial IV PUSH Q4H PRN Nausea Pantoprazole Sodium 40 mg 07/18/20 21:00 07/22/20 09:23 Pantoprazole Sodium Iv 40 Mg Vial IV PUSH Not Given Q12HR KEZIA Risperidone 2 mg 07/19/20 21:00 07/21/20 20:36 Risperidone 1 Mg Tablet PO 2 mg HS KEZIA Administration Risperidone 1 mg 07/19/20 12:10 07/22/20 09:13 Risperidone 1 Mg Tablet PO 1 mg DAILY KEZIA Administration Sertraline HCl 25 mg 07/19/20 17:00 07/22/20 09:13 Sertraline Hcl 25 Mg Tablet PO 25 mg BID KEZIA Administration Tamsulosin HCl 0.4 mg 07/20/20 10:45 07/22/20 09:13 Tamsulosin Hcl 0.4 Mg Capsule PO 0.4 mg QAM KEZIA Administration Radiology Results: ITS Impressions Abdomen/Pelvis CT 07/17/20 08:19 IMPRESSION: 1. Small bowel obstruction. No definite transition site not identified. 2: Patchy infiltrates of the lower lung zones which may represent atelectasis, scarring a
[2020-07-22 11:53] VITALS: BP 148/73
[2020-07-22 12:42] LABS: Hematocrit 36.6 % (42.0-52.0); Mean Corpuscular HGB Conc 32.8 g/dl (32-36); Mean Corpuscular Hemoglobin 29.8 pg (26-34); Mean Corpuscular Volume 90.8 fl (80-100); Mean Platelet Volume 9.6 fl (7.4-10.4); Platelet Count Result 332 k/mm3 (150-375); Red Blood Count 4.03 M/mm3 (4.6-6.20); Red Cell Distribution Width 13.9 % (11.5-14.5); White Blood Count 14.1 K/mm3 (4.5-10.0)
--- NOTE | 2020-07-22 12:55 | PM.DS ---
DS: Admitting Diagnosis Admitting Diagnosis Admitting Diagnosis: Bowel Obstruction, Upper GI Bleed DS: Discharge Diagnosis Discharge Diagnosis (1) Small bowel obstruction: Code(s): K56.609 - Unspecified intestinal obstruction, unspecified as to partial versus complete obstruction Status: Acute Assessment and Plan: CT abd/pelvis demonstrated dilated small bowel loops with decompressed distal small bowel compatible with obstruction. Etiology unclear. He has no abdominal surgical hx. He does not have a prior hx of IBD. Lactic acid was normal. Blood cultures with no growth. TSH normal. He was seen in consultation by general surgery and GI. NG tube initiated on presentation and was discontinued on 07/19. Diet was advanced and he was able to tolerate a low fiber, soft and bite sized diet. Bowel function returned and he had several bowel movements. He will need to continue with daily laxatives and stool softeners. (2) Pneumonia: Code(s): J18.9 - Pneumonia, unspecified organism Status: Acute Assessment and Plan: CXR showed possible LLQ infiltrate with mild leukocytosis. He was afebrile. Covid negative. Urine legionella and pneumococcal antigens still pending and will be monitored. He was started on IV ceftriaxone and doxycycline. It appears he developed a rash with doxycycline so this was discontinued, although I did not appreciate a rash upon my examination. He will continue PO Cefdinir and PO azithromycin. Blood cultures with NGTD. Sputum culture ordered but unable to be collected as patient had nonproductive cough. (3) Altered mental status: Code(s): R41.82 - Altered mental status, unspecified Status: Resolved Assessment and Plan: Pt was somnolent and lethargic the morning of 07/17 after receiving ativan and dilaudid in the ER. This was the likely cause of his altered mentation. His sister reports that he is minimally verbal. He has underlying Tourettes and schizophrenia. He has no focal deficits. CT brain was unremarkable. UA does not suggest UTI. Ammonia is normal. Vitamin B12 is low and will be supplemented. Folate is normal. He often talks to himself in nonsensical manner. He has underlying Tourettes and schizophrenia. Previous provider discussed with [place] nursing staff who reports patient is at his baseline. His nonformulary clozapine was brought in by [facility] staff. Continue clozapine and risperidone. (4) Esophagitis: Code(s): K20.90 - Esophagitis, unspecified without bleeding Status: Acute Assessment and Plan: Noted on CT abd/pelvis. Seen in consultation by GI. He will continue with Pepcid for brief interval per GI recs (5) Upper gastrointestinal hemorrhage: Code(s): K92.2 - Gastrointestinal hemorrhage, unspecified Status: Acute Assessment and Plan: He had two episodes of coffee ground emesis reported by the [facility] staff prior to admission. He has not had any further episodes. Likely sequela of stress gastritis from SBO. Guaiac stool testing was negative. He received IV Protonix. H&H remained stable with no further episodes of bleeding. Continue pepcid as noted above. No further workup required per GI. (6) Urinary retention: Code(s): R33.9 - Retention of urine, unspecified Status: Acute Assessment and Plan: [place] to be secondary to BPH. He had retention and straight cath yielded 700cc. Tenorio was initiated. Tamsulosin was initiated 07/20. He was seen in consultation by Urology who recommended addition of finasteride with tamsulosin. CT was negative for urologic findings. He was discharged with his Tenorio catheter in place and will attempt a voiding trial in 1 week at [facility]. If he fails the voiding trial, Tenorio will need to be reinserted and he will need to follow-up with urology. (7) Schizophrenia: Code(s): F20.9 - Schizophrenia, unspecified Status: Chronic Assessment and Plan:
[2020-07-23 21:35] LABS: Pneumococcal Antigen Urine Not Detected (Not Detected)
[2020-07-24 18:23] LABS: Legionella pneumophila Ag Ur Not Detected (Not Detected)
== END 2020-07-22 13:07 | DRG 388 ==
LOC: ANHED 07-17 00:41 → ANH2MED 07-17 07:14
PROVIDERS: Physician Assistant; Surgery; Admitting Provider Internal Medicine; Emergency Provider Emergency Medicine; PCP Internal Medicine; Visit Provider Physician Assistant
DX: K56.609 Unspecified intestinal obstruction, unspecified as to partial versus complete obstruction (principal); J18.9 Pneumonia, unspecified organism; K29.71 Gastritis, unspecified, with bleeding; N17.9 Acute kidney failure, unspecified; J44.0 Chronic obstructive pulmonary disease with (acute) lower respiratory infection; F95.2 Tourette's disorder; K76.0 Fatty (change of) liver, not elsewhere classified; K59.00 Constipation, unspecified; Z20.828 Contact with and (suspected) exposure to other viral communicable diseases; Z66 Do not resuscitate; R13.10 Dysphagia, unspecified; E53.8 Deficiency of other specified B group vitamins; K20.90 Esophagitis, unspecified without bleeding; N40.1 Benign prostatic hyperplasia with lower urinary tract symptoms; R33.8 Other retention of urine; R41.82 Altered mental status, unspecified; T42.4X5A Adverse effect of benzodiazepines, initial encounter; T40.2X5A Adverse effect of other opioids, initial encounter; F20.9 Schizophrenia, unspecified; F03.90 Unspecified dementia, unspecified severity, without behavioral disturbance, psychotic disturbance, mood disturbance, and anxiety; F41.9 Anxiety disorder, unspecified; E78.5 Hyperlipidemia, unspecified; F17.200 Nicotine dependence, unspecified, uncomplicated; L27.0 Generalized skin eruption due to drugs and medicaments taken internally; T36.4X5A Adverse effect of tetracyclines, initial encounter; Z79.899 Other long term (current) drug therapy
CPT/HCPCS: 36415; 70450; 71046; 74018; 74019; 74177; 74250; 76705; 80048; 80053; 80074; 81001; 82140; 82274; 82607; 82746; 83605; 83690; 83735; 84443; 85025; 85027; 85610; 85730; 86140; 86850; 86900; 86901; 87040; 87449; 87635; 87899; 92610; 92611; 94640; 96361; 96374; 96376; 97110; 97116; 97161; 97166; 97530; 99285; A9270; C9113; C9803; J0696; J1170; J1650; J2060; J2765; J3420; J3480; J7030; J7060; J7120; Q9967; U0003

== ENCOUNTER 2020-10-12 18:39 | Emergency (ER) | payer MEDICARE, MEDICAID, SELFPAY ==
--- NOTE | ~2020-10-12 | XR_ITS ---
EXAMINATION: XR chest 1V DATE: 10/12/2020 19:40 INDICATION: Chronic obstructive pulmonary disease. TECHNIQUE: A single frontal view of the chest was obtained on 2 radiographs. COMPARISON: Chest 2 views 07/20/2020, CT abdomen and pelvis 07/16/2020 FINDINGS: There is mild atelectasis at left lung base. There is blunting of left lateral costophrenic angle correlating with prominent extrapleural fat by CT. No pleural effusion or pneumothorax. The he art size is normal. IMPRESSION: 1. Mild atelectasis at left lung base. Reviewed, dictated and finalized at location A. 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
--- NOTE | ~2020-10-12 | CT_ITS ---
EXAMINATION: CT brain wo con DATE: 10/12/2020 19:33 INDICATION: Head injury. TECHNIQUE: Computed tomography (CT) of the head was performed without intravenous contrast. The mA wa s adjusted according to patient size. Iterative reconstruction technique was employed. The dose-lengt h product was 605.33 mGy-cm. COMPARISON: Head CT 07/17/2020 FINDINGS: There is an old infarct involving the left basal ganglia and left internal capsule. There a re scattered areas of low attenuation in the cerebral white matter. There is no intracranial hemorrha ge, acute infarction, or abnormal intracranial mass lesion. The ventricles are normal in size. The pa ranasal sinuses are clear. The mastoid air cells are normal. The orbits are normal. IMPRESSION: 1. 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 2. Mild nonspecific cerebral white matter disease, which likely represents chronic small vessel ische giuseppe disease. Reviewed, dictated and finalized at location A. 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 2. Mild nonspecific cerebral white matter disease, which likely represents bottle selector sanjuana small vessel ischemic disease.
--- NOTE | ~2020-10-12 | CT_ITS ---
EXAMINATION: CT facial & cervical spine wo DATE: 10/12/2020 19:37 INDICATION: Head injury. TECHNIQUE: Computed tomography (CT) of the maxillofacial region and cervical spine was performed with out intravenous contrast. Automated exposure control and iterative reconstruction technique were empl oyed. The dose-length product was 816.79 mGy-cm. COMPARISON: None FINDINGS: MAXILLOFACIAL CT: There is rightward deviation the nasal septum. There are fractures of the nasal bones. The mastoid ai r cells are normal. The paranasal sinuses are clear. CERVICAL SPINE CT: There is mild emphysema. There is kyphosis of cervical spine. There is 9 degrees dextrocurvature of c ervical spine. Vertebral body heights are normal. C1 ring is ununited posteriorly, a normal variant. There is moderately decreased disc height at C3-C4, mildly decreased disc height at C4-C5, and severe ly decreased disc height at C5-C6 and C6-C7 with endplate remodeling. The following disc levels are s pecifically discussed: C2-C3: There is mild left uncovertebral joint osteoarthritis. There is moderate right and mild left f acet joint osteoarthritis. There is no neural foraminal stenosis. There is no central canal stenosis. C3-C4: There is moderate right and severe left uncovertebral joint osteoarthritis. There is mild righ t and severe left facet joint osteoarthritis. There is mild bilateral neural foraminal stenosis. Ther e is mild central canal stenosis. C4-C5: There is mild bilateral uncovertebral joint osteoarthritis. There is mild left facet joint ost eoarthritis. There is no neural foraminal stenosis. There is mild central canal stenosis. C5-C6: There is severe bilateral uncovertebral joint osteoarthritis. There is mild bilateral facet keila int osteoarthritis. There is mild right and moderate left neural foraminal stenosis. There is mild ce ntral canal stenosis. C6-C7: There is moderate right and severe left uncovertebral joint osteoarthritis. There is moderate right and mild left facet joint osteoarthritis. There is moderate bilateral neural foraminal stenosis . There is mild central canal stenosis. C7-T1: There is no uncovertebral joint osteoarthritis. There is severe bilateral facet joint osteoart hritis. There is mild left neural foraminal stenosis. There is no central canal stenosis. IMPRESSION: 1. Fractures of the nasal bones. 2. Severe cervical spondylosis. Reviewed, dictated and finalized at location A. RLY
[2020-10-12 18:41] VITALS: BP 153/93; PULSE 102; RESP 17; TEMP 36.8; O2SAT 98
--- NOTE | 2020-10-12 19:18 | ED.FALL ---
HPI - Fall General Chief Complaint: Fall Stated Complaint: fall Time Seen by Provider: 10/12/20 19:07 Source: RN notes reviewed History of Present Illness HPI Narrative: Patient presents emergency department from home for a fall. History is per [facility] patient had a fall and striking his nose with dried blood in his nares fall was unwitnessed patient currently laying in bed at baseline awake and alert x1 he denies any pain at this time denies any other injuries. He states that he was walking too fast when he fell denies any chest pain shortness of breath abdominal pain nausea vomiting Related Data Home Medications Medication Instructions Recorded Confirmed atorvastatin 20 mg PO HS 07/16/20 07/17/20 benztropine 0.5 mg PO TID 07/16/20 07/17/20 clozapine 100 mg PO BID 07/16/20 07/17/20 fenofibrate micronized 67 mg PO DAILY 07/16/20 07/17/20 lactulose 20 g PO BID 07/16/20 07/17/20 risperidone 1 mg PO DAILY 07/16/20 07/17/20 risperidone 2 mg PO HS 07/16/20 07/17/20 sertraline 25 mg PO BID 07/16/20 07/17/20 clozapine 300 mg PO HS 07/17/20 07/17/20 docusate sodium 100 mg PO BID 07/17/20 07/17/20 folic acid 1 mg PO DAILY 07/17/20 07/17/20 omega 3-fvv-mnt-fish oil [Fish Oil] 1 cap PO TID 07/17/20 07/17/20 Allergies Allergy/AdvReac Type Severity Reaction Status Date / Time doxycycline Allergy Intermediate Rash Verified 07/21/20 20:37 Review of Systems Review of Systems: Narrative: Gen.: Denies fevers or chills Eyes: Denies eye pain or visual change ENT: Reports facial pain Respiratory: Denies shortness of breath or cough CV: Denies chest pain GI: Denies abdominal pain nausea, emesis Musculoskeletal: Denies back pain or muscle pain Neuro: Denies loss of consciousness Skin: Denies rash Except as documented, all other systems reviewed and negative PMF Past Medical History Medical History Anxiety Dementia Dysphagia Hyperlipidemia Schizophrenia Tourettes disease Surgical History Surgical History No history of previous surgery Family History Family History Father Coronary artery disease CHF (congestive heart failure) Mother Coronary artery disease Sibling Coronary artery disease Sibling Multiple sclerosis Social History Social History Social History: Mr. Youssef is a [facility] resident at [facility]. He has been there for 20 years. His parents are and he has two siblings. He is a current smoker and smokes approximately 1-2 packs per week. He does not drink alcohol or use illicit substances. His sister, Jemima Dickerson, is his POA. 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 Smoking status: Current every day smoker Alcohol intake: never Substance use: never Gender identity (if verbalized by the patient): Male Exam Narrative: Exam Narrative: APPEARANCE: No acute distress, nontoxic, resting in bed EYES: EOMI PERRL HEENT: Normocephalic, atraumatic, OMM swelling and tenderness over nasal bridge dried blood in bilateral nares no loose or avulsed teeth no septal hematoma seen RESPIRATORY: No respiratory distress Clear to auscultation bilaterally with no rhonchi wheezing or rales. CARDIOVASCULAR: Regular rate and rhythm without murmurs rubs or gallops. ABDOMINAL: Soft, nontender, nondistended, no rebound or guarding MUSCULOSKELETAl: Moves all extremities. No clubbing, cyanosis or edema no tenderness of bilateral upper or lower extremities NEURO: Awake and alert x 1. Following commands, speech normal, no focal deficits SKIN:: Warm, dry. No rashes lesions or abrasions PSYCHIATRIC: Normal affect/mood, Course Course Emergency Course: Patient able to ambulate emergency department no difficulty Discussed with patient results of workup and diagnosis. Discussed need for follow-up with primary ca
--- NOTE | 2020-10-12 20:07 | PC.NURSE ---
pt ambulated around nurses station with even gait and no complaints of pain.
--- NOTE | 2020-10-12 20:13 | PC.NURSE ---
called [facility] to transport patient. ETA [id number]
--- NOTE | 2020-10-12 20:58 | PC.NURSE ---
updated Amy at [facility] on pt disposition.
--- NOTE | 2020-10-12 22:19 | PC.NURSE ---
[facility] ETA update [id number].
[2020-10-13 00:04] VITALS: BP 118/78; PULSE 84; RESP 18; O2SAT 95
== END 2020-10-13 00:05 ==
PROVIDERS: Emergency Provider Emergency Medicine; PCP Internal Medicine
DX: S02.2XXA Fracture of nasal bones, initial encounter for closed fracture (principal); F03.90 Unspecified dementia, unspecified severity, without behavioral disturbance, psychotic disturbance, mood disturbance, and anxiety; E78.5 Hyperlipidemia, unspecified; F41.9 Anxiety disorder, unspecified; F95.2 Tourette's disorder; F20.9 Schizophrenia, unspecified; F17.210 Nicotine dependence, cigarettes, uncomplicated; Z66 Do not resuscitate; M47.812 Spondylosis without myelopathy or radiculopathy, cervical region; R90.82 White matter disease, unspecified; W19.XXXA Unspecified fall, initial encounter
CPT/HCPCS: 70450; 70486; 71045; 72125; 99284

== ENCOUNTER 2022-01-25 14:00 | Emergency (ER) | payer OTHER, SELFPAY ==
[2022-01-25] VITALS (20 sets, daily range): BP systolic 113–149; BP diastolic 56–87; PULSE 90–110; RESP 15–33; O2SAT 92–98
--- NOTE | ~2022-01-25 | XR_ITS ---
XR chest 1V portable DATE: 01/25/2022 14:19 INDICATION: Chest pain TECHNIQUE: Portable upright AP chest on 01/25/2022 at 1415 hours COMPARISON: 10/04/2020 AP chest FINDINGS: Heart size is normal. Minimal blunting left costophrenic angle, stable since 10/04/2020 club attendant sanjuana pleural thickening or minimal pleural effusion. Mild atelectasis at the lung bases and right midlung. IMPRESSION: Mild atelectasis, right mid and both lung bases Reviewed, dictated and finalized at location A.
--- NOTE | 2022-01-25 14:04 | ECG_ITS ---
Measurements Intervals [place] Rate: 106 P: 66 AK: 200 QRS: -82 QRSD: 116 T: 55 QT: 366 QTc: 487 Interpretive Statements SINUS TACHYCARDIA PATTERN CONSISTENT WITH PULMONARY DISEASE INCOMPLETE RIGHT BUNDLE BRANCH BLOCK [90+ ms QRS DURATION, TERMINAL R IN V1/V2, 40+ ms S IN I/aVL/V4/V5/V6] PREVIOUS INFERIOR MYOCARDIAL INFARCTION , OLD NO PREVIOUS ECG AVAILABLE FOR COMPARISON Electronically Signed On 01-25-2022 16:33:04 CDT by Checo Ruiz M.D.
--- NOTE | 2022-01-25 14:05 | ED.CHESTPAIN ---
HPI - Chest Pain General Chief Complaint: Chest Pain Stated Complaint: Chest Pain History of Present Illness HPI narrative: Pt was unsteady on feet while walking down [place] per [facility] staff. Assisted patient to room and he complained of CP. Staff gave tylenol and his CP resolved. Pt has no CP now. Pt sasy he just felt off balance and unsteady but not like he was going to pass out. Pt denies fever, SOB, cough or urinary symptoms. Pt denies BUCKLEY or one sided weakness. Related Data Home Medications Medication Instructions Recorded Confirmed atorvastatin 20 mg tablet 20 mg PO HS 07/16/20 07/17/20 benztropine 0.5 mg tablet 0.5 mg PO TID 07/16/20 07/17/20 clozapine 100 mg tablet 100 mg PO BID 07/16/20 07/17/20 fenofibrate micronized 67 mg 67 mg PO DAILY 07/16/20 07/17/20 capsule lactulose 10 gram/15 mL oral 20 g PO BID 07/16/20 07/17/20 solution risperidone 1 mg tablet 1 mg PO DAILY 07/16/20 07/17/20 risperidone 2 mg tablet 2 mg PO HS 07/16/20 07/17/20 sertraline 25 mg tablet 25 mg PO BID 07/16/20 07/17/20 clozapine 100 mg tablet 300 mg PO HS 07/17/20 07/17/20 docusate sodium 100 mg tablet 100 mg PO BID 07/17/20 07/17/20 folic acid 1 mg tablet 1 mg PO DAILY 07/17/20 07/17/20 omega 1-fii-bvh-fish oil 1,000 mg 1 cap PO TID 07/17/20 07/17/20 (120 mg-180 mg) capsule (Fish Oil) Allergies Allergy/AdvReac Type Severity Reaction Status Date / Time doxycycline Allergy Intermediate Rash Verified 07/21/20 20:37 Review of Systems Review of Systems: All systems reviewed & are unremarkable except as noted in HPI and below PMFSH Past Medical History Medical History Anxiety Dementia Dysphagia Hyperlipidemia Schizophrenia Tourettes disease Surgical History Surgical History No history of previous surgery Family History Family History Father Coronary artery disease CHF (congestive heart failure) Mother Coronary artery disease Sibling Coronary artery disease Sibling Multiple sclerosis Social History Social History Social History: Mr. Youssef is a detention resident at [facility]. He has been there for 20 years. His parents are and he has two siblings. He is a current smoker and smokes approximately 1-2 packs per week. He does not drink alcohol or use illicit substances. His sister, Jemima Dickerson, is his POA. 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 Smoking status: Current every day smoker Alcohol intake: never Substance use: never Gender identity (if verbalized by the patient): Male Exam Const: General: healthy appearing, no acute distress and alert Nutritional Appearance: obese Orientation/consciousness: patient oriented x3 Limitations: behavioral limitations HENMT: Head: normal to inspection Eyes: Conjunctivae: conjunctivae normal Pupils: Equal, round and reactive pupils present EOM: EOMs intact bilaterally Neck: Neck: normal visual inspection, no lymphadenopathy and no meningeal signs Chest: Chest palpation & inspection: normal inspection of the chest Resp: Effort & Inspection: normal respiratory effort Auscultation: clear to auscultation bilaterally Cardio: Rate: tachycardic Rhythm: regular rhythm GI: GI Palp: Yes Soft to palpation Auscultation: normal bowel sounds Skin: General skin exam: normal color Rashes: no rashes Wounds: no wounds Neuro: General: moves all extremities, no meningeal signs, no focal motor deficits and CN's II-XI intact bilaterally Cranial nerves: Yes Nystagmus not present Speech: normal speech Extrem: General: normal to inspection Psych: Mental Status: mental status grossly normal Affect: normal affect Attitude: cooperative Course Course Emergency Course: H 0 E 0 A 2 R 1 T 0 = 3 pt able to ambulate without difficulty Vital Signs
[2022-01-25 14:38] LABS: Basophils Percent Auto 0.4 % (0.2-1.2); Eosinophils Percent Auto 0.1 % (0-4.4); Hematocrit 40.9 % (42.0-52.0); Hemoglobin 12.9 g/dL (14.0-18.0); Immature Granulocyte Absolute 0.03 K/mm3 (0.00-0.031); Immature Granulocyte Percent A 0.4 % (0-0.5); Lymphocytes Absolute Auto 1.43 K/mm3 (0.9-3.2); Lymphocytes Percent Auto 20.9 % (18.3-44.2); Mean Corpuscular HGB Conc 31.5 g/dl (32-36); Mean Corpuscular Hemoglobin 28.1 pg (26-34); Mean Corpuscular Volume 89.1 fl (80-100); Mean Platelet Volume 9.6 fl (7.4-10.4); Monocytes Absolute Auto 0.6 K/mm3 (0.1-0.6); Monocytes Percent Auto 8.6 % (2.6-8.5); Neutrophils Absolute Auto 4.8 K/mm3 (1.3-6.7); Neutrophils Percent Auto 69.6 % (45.5-73.1); Platelet Count Result 296 k/mm3 (150-375); Red Blood Count 4.59 M/mm3 (4.6-6.20); White Blood Count 6.8 K/mm3 (4.5-10.0)
[2022-01-25 14:43] LABS: Alanine Aminotransferase 15 U/L (6-50); Albumin Level 4.1 g/dL (3.5-5.1); Alkaline Phosphatase 77 U/L (38-126); Anion Gap 8 mmol/L (8-16); Aspartate Amino Transferase 16 U/L (17-59); Bilirubin,Total < 0.1 mg/dL (0.2-1.3); Blood Urea Nitrogen 18 mg/dL (9-20); Carbon Dioxide 23 mmol/L (22-30); Chloride 110 mmol/L (98-107); Estimated CRCL calculation 72 ml/min; Estimated Glomerular Filt Rate > 60; Glucose 151 mg/dL (65-110); Potassium 3.7 mmol/L (3.4-5.0); Sodium 141 mmol/L (137-145)
[2022-01-25 14:48] LABS: INR 0.9; Partial Thromboplastin Time 25.9 SECONDS (22.3-36.8); Prothrombin Time 12.2 Seconds (11.1-14.7)
[2022-01-25 14:55] LABS: NT Pro B Type Natriuretic Pept 37 pg/mL (5-100); Troponin I < 0.012 ng/mL (0.000-0.034)
[2022-01-25 17:30] LABS: Troponin I < 0.012 ng/mL (0.000-0.034)
--- NOTE | 2022-01-25 18:37 | PC.NURSE ---
Pt ambulated by tech. Pt ambulated with steady gait
== END 2022-01-25 20:06 ==
PROVIDERS: Emergency Provider Emergency Medicine
DX: R07.89 Other chest pain (principal); E78.5 Hyperlipidemia, unspecified; F41.9 Anxiety disorder, unspecified; F03.90 Unspecified dementia, unspecified severity, without behavioral disturbance, psychotic disturbance, mood disturbance, and anxiety; F17.200 Nicotine dependence, unspecified, uncomplicated; Z82.49 Family history of ischemic heart disease and other diseases of the circulatory system
CPT/HCPCS: 36415; 71045; 80053; 83880; 84484; 85025; 85610; 85730; 93005; 99284

== ENCOUNTER 2022-02-21 21:31 | Inpatient (IN) | payer MEDICARE, MEDICAID, SELFPAY ==
--- NOTE | ~2022-02-21 | XR_ITS ---
EXAMINATION: XR abdomen NG/feed tube insert DATE: 02/25/2022 08:13 INDICATION: Nasogastric tube placement TECHNIQUE: A supine view of the abdomen and lower chest was obtained for evaluation of feeding tube placement. The left flank, pelvis and portions of the lower abdomen are excluded from the field-of-vi ew. COMPARISON: 02/25/2022 at 6:15 AM FINDINGS: Nasogastric tube tip in the body of the stomach with proximal side-port near the level of the gastroe sophageal junction. Gas and stool containing loops of colon in the visualized upper abdomen. Visualiz ed portions of the lungs are clear. Heart size is normal. IMPRESSION: 1. Nasogastric tube tip in the stomach. Reviewed, dictated and finalized at location B.
--- NOTE | ~2022-02-21 | XR_ITS ---
EXAMINATION: XR abdomen NG/feed tube insert DATE: 02/23/2022 05:34 INDICATION: Nasogastric tube placement. TECHNIQUE: An upright view of the abdomen was obtained. COMPARISON: Small bowel series 02/22/2022 FINDINGS: The lower abdomen is excluded. There are dilated loops of small bowel. There is oral contra st in the colon, which is normal in caliber. The nasogastric tube is folded on itself in the esophagu s. IMPRESSION: 1. Nasogastric tube folded on itself in the esophagus. 2. Dilated small bowel, consistent with small bowel obstruction. Reviewed, dictated and finalized at location A.
--- NOTE | ~2022-02-21 | XR_ITS ---
EXAMINATION: XR abdomen NG/feed tube rechec DATE: 02/23/2022 06:03 INDICATION: Nasogastric tube replacement. TECHNIQUE: A supine view of the abdomen was obtained. COMPARISON: Small bowel series 02/22/2022 FINDINGS: The lower abdomen is excluded. There are multiple dilated loops of small bowel. There is or al contrast in the colon. The nasogastric tube tip is in the stomach. IMPRESSION: 1. Nasogastric tube tip in the stomach. 2. Persistently dilated small bowel, consistent with small bowel obstruction. Reviewed, dictated and finalized at location A.
--- NOTE | ~2022-02-21 | XR_ITS ---
XR chest 1V DATE: 02/22/2022 11:20 INDICATION: Tachypnea TECHNIQUE: Supine AP views COMPARISON: 01/25/2022 portable AP chest FINDINGS: Interval placement of NG tube which extends only 2.4 cm beyond the diaphragmatic hiatus. Ad vancement is recommended. Normal heart size. Mild discoid atelectasis or scarring right midlung and mild bibasilar infiltrate or atelectasis, grea ter on the left. There is blunting of the costophrenic angles which may indicate small pleural effusi ons. No pneumothorax. IMPRESSION: NG tube extends only 2.4 cm beyond the diaphragmatic hiatus; advancement is recommended Mild atelectasis at the lung bases Reviewed, dictated and finalized at location A. IMPRESSION: NG tube extends only 2.4 cm beyond the diaphragmatic hiatus; advanc ement is recommended Mild atelectasis at the lung bases
--- NOTE | ~2022-02-21 | CT_ITS ---
EXAMINATION: CT abdomen pelvis w con DATE: 02/21/2022 22:42 INDICATION: Abdominal distention. Vomiting. TECHNIQUE: Computed tomography (CT) of the abdomen and pelvis was performed with 100 mL Omnipaque 300 intravenous contrast. Automated exposure control and iterative reconstruction technique were employe d. The dose-length product was 1398.38 mGy-cm. COMPARISON: CT abdomen and pelvis 07/16/2020 FINDINGS: The visualized portions of the lung bases demonstrate mild atelectasis. A calcified left brenda ng nodule is consistent with old granulomatous disease. There is chronic mild pleural thickening on t he left. The heart size is normal. No pericardial effusion. There is fluid in the esophagus. The live r, gallbladder, spleen, pancreas, and adrenal glands are normal. There are cysts in the kidneys measu ring up to 4.2 cm on the right. There is a large volume of stool in the colon. There are multiple flu id-filled loops of small bowel with transition point in the mid abdomen. There is a left inguinal her clemente containing fat. 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 There are no pathologically enlarged lymph nodes. There is no free intraperitoneal fluid. There is severe lower lumbar spondylosis. There is mil d thoracic spondylosis. IMPRESSION: 1. Small bowel obstruction with transition point in the mid abdomen. 2. Large volume of stool in the colon. Reviewed, dictated and finalized at location A.
--- NOTE | ~2022-02-21 | XR_ITS ---
EXAMINATION: XR abdomen NG/feed tube insert DATE: 02/22/2022 02:47 INDICATION: Nasogastric tube placement. TECHNIQUE: A supine view of the abdomen on 2 radiographs was obtained. COMPARISON: CT abdomen and pelvis 02/21/2022 FINDINGS: There are multiple dilated loops of small bowel. The lower abdomen is excluded. The nasogas tric tube tip is in the stomach. There are airspace opacities at left lung base, likely atelectasis. IMPRESSION: 1. Nasogastric tube tip in the stomach. 2. Dilated small bowel, consistent with small bowel obstruction. Reviewed, dictated and finalized at location A.
--- NOTE | ~2022-02-21 | XR_ITS ---
SMALL BOWEL SERIES ONLY INDICATION: Small bowel obstruction TECHNIQUE: Serial plain films and fluoroscopic spot films are performed following oral demonstration of thin barium. COMPARISON: KUB dated 02/22/2022 FINDINGS: 480 cc Gastrografin administered via NG tube was followed sequentially through the small gael wel. There are diffusely dilated small bowel loops. There is reflux surrounding the NG tube into the esophagus on multiple images. This study was terminated at 6 hours due to patient vomiting and discom fort. Contrast did not pass entirely through the small bowel. There is large amount of retained fecal material in the colon. IMPRESSION: 1: Dilated small bowel without focal transition point identified, compatible with small bowel obstru ction. Study terminated due to patient vomiting and discomfort. Reviewed, dictated and finalized at location A. IMPRESSION: 1: Dilated small bowel without focal transition point identified, compatible w ith small bowel obstruction. Study terminated due to patient vomiting and disco mfort.
--- NOTE | ~2022-02-21 | XR_ITS ---
XR abdomen NG/feed tube insert INDICATION: Evaluate NG tube position. TECHNIQUE: Limited KUB perform for evaluating NG tube . COMPARISON: Comparison to multiple prior studies sequentially, with oldest reviewed study dated 02/23. FINDINGS: NG tube tip in the stomach, side port near the expected location of the GE junction. Visua lized bowel gas pattern is unremarkable.There is residual contrast in the colon. IMPRESSION: 1: NG tube tip in the stomach, side port near the GE junction. Reviewed, dictated and finalized at location A.
--- NOTE | ~2022-02-21 | XR_ITS ---
EXAMINATION: XR abdomen NG/feed tube insert DATE: 02/25/2022 06:20 INDICATION: Nasogastric tube placement. TECHNIQUE: An upright view of the abdomen was obtained. COMPARISON: Abdomen radiograph 02/24/2022 FINDINGS: The lower abdomen is excluded. There is oral contrast in the colon. The nasogastric tube ti p is in the stomach. IMPRESSION: 1. Nasogastric tube tip in the stomach. Reviewed, dictated and finalized at location A.
--- NOTE | ~2022-02-21 | XR_ITS ---
EXAMINATION: XR abdomen/kub 1V DATE: 02/24/2022 05:32 INDICATION: Small bowel obstruction. TECHNIQUE: A supine view of the abdomen on 3 radiographs was obtained. COMPARISON: Small bowel series 02/22/2022 FINDINGS: There are multiple dilated loops of small bowel. There is oral contrast and stool in the co lanny. The nasogastric tube tip is in the stomach. IMPRESSION: 1. Persistently dilated small bowel, consistent with small bowel obstruction. Reviewed, dictated and finalized at location A.
[2022-02-21 21:32] VITALS: BP 139/75; PULSE 115; RESP 20; TEMP 36.6; O2SAT 94
--- NOTE | 2022-02-21 21:42 | ED.ABDPAIN ---
HPI - Abdominal Pain General Chief Complaint: Abdominal Pain Stated Complaint: increased abd distention Time Seen by Provider: 02/21/22 21:39 Source: old records reviewed and other History of Present Illness HPI narrative: Patient referred from a nursing facility for increased abdominal distention and vomiting. Patient does have a history of small bowel obstructions as well as dementia. Patient has no complaints at this time Related Data Home Medications Medication Instructions Recorded Confirmed atorvastatin 20 mg tablet 20 mg PO HS 07/16/20 07/17/20 benztropine 0.5 mg tablet 0.5 mg PO TID 07/16/20 07/17/20 clozapine 100 mg tablet 100 mg PO BID 07/16/20 07/17/20 fenofibrate micronized 67 mg 67 mg PO DAILY 07/16/20 07/17/20 capsule lactulose 10 gram/15 mL oral 20 g PO BID 07/16/20 07/17/20 solution risperidone 1 mg tablet 1 mg PO DAILY 07/16/20 07/17/20 risperidone 2 mg tablet 2 mg PO HS 07/16/20 07/17/20 sertraline 25 mg tablet 25 mg PO BID 07/16/20 07/17/20 clozapine 100 mg tablet 300 mg PO HS 07/17/20 07/17/20 docusate sodium 100 mg tablet 100 mg PO BID 07/17/20 07/17/20 folic acid 1 mg tablet 1 mg PO DAILY 07/17/20 07/17/20 omega 7-guj-tgq-fish oil 1,000 mg 1 cap PO TID 07/17/20 07/17/20 (120 mg-180 mg) capsule (Fish Oil) Allergies Allergy/AdvReac Type Severity Reaction Status Date / Time doxycycline Allergy Intermediate Rash Verified 01/27/22 10:20 Review of Systems Review of Systems: ROS unobtainable: Yes unobtainable due to mental status (Patient's baseline dementia limits review of systems) [facility] Past Medical History Medical History (Updated 02/22/22 @ 01:19 by Calvin Raymundo MD) Anxiety Dementia Dysphagia Hyperlipidemia Schizophrenia Tourettes disease Surgical History Surgical History (Updated 01/27/22 @ 10:20 by Elvis Red) No history of previous surgery Family History Family History (System 01/27/22 @ 10:20 by Elvis Red) Father Coronary artery disease CHF (congestive heart failure) Mother Coronary artery disease Sibling Coronary artery disease Sibling Multiple sclerosis Social History Social History (System 01/27/22 @ 10:20 by Elvis Red) Social History: Mr. Youssef is a alf resident at [facility]. He has been there for 20 years. His parents are and he has two siblings. He is a current smoker and smokes approximately 1-2 packs per week. He does not drink alcohol or use illicit substances. His sister, Jemima Dickerson, is his POA. 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 Smoking status: Current every day smoker Alcohol intake: never Substance use: never Gender identity (if verbalized by the patient): Male Exam Narrative: GENERAL: Well-appearing, well-nourished, and in no acute distress. HEAD: Normocephalic, atraumatic. EYES: PERRLA and EOMI. ENT: Nares clear, no rhinorrhea or epistaxis. Mucous membranes moist. NECK: Supple. No masses. No JVD CHEST: Clear to auscultation. No respiratory distress. No wheezes rales or rhonchi HEART: Regular tachycardia. No murmur heard. Normal peripheral pulses. ABDOMEN: Diffuse abdominal distention no focal areas of tenderness soft. EXTREMITIES: Normal range of motion. No edema. SKIN: Warm, dry, no rash. NEURO: No focal deficits. Alert and oriented x1. PSYCH: Normal mood and affect. Course Reevaluation(s) Reevaluation #1: Patient resting comfortably CT scan showed small bowel obstruction patient did vomit in the emergency room NG is placed patient will be admitted to the fullest team for further management. General surgery consulted. All findings and work-up discussed with Lakes[place] and patient's next of kin who is comfortable with admission with NG tube. Date: 02/22/22 Time: 01:17 Consultations Consultation #1: Patient has advanced directive of DNR and comfort focused treatment attempted to reach out to family members on patient's arrival to the ER to discuss goals of care no answer we will proceed with
[2022-02-21] MEDS: ONDANSETRON INJ 4 MG/2 ML VIAL IV PUSH (21:48)
[2022-02-21] MEDS: SODIUM CHLORIDE 0.9% IV 1,000 ML 999 ML IV CONT (21:48)
[2022-02-21 21:54] LABS: Basophils Percent Auto 0.4 % (0.2-1.2); Hematocrit 43.4 % (42.0-52.0); Hemoglobin 14.1 g/dL (14.0-18.0); Immature Granulocyte Absolute 0.03 K/mm3 (0.00-0.031); Immature Granulocyte Percent A 0.3 % (0-0.5); Lymphocytes Absolute Auto 0.89 K/mm3 (0.9-3.2); Lymphocytes Percent Auto 8.7 % (18.3-44.2); Mean Corpuscular HGB Conc 32.5 g/dl (32-36); Mean Corpuscular Hemoglobin 28.5 pg (26-34); Mean Corpuscular Volume 87.7 fl (80-100); Mean Platelet Volume 9.8 fl (7.4-10.4); Monocytes Absolute Auto 0.8 K/mm3 (0.1-0.6); Monocytes Percent Auto 8.2 % (2.6-8.5); Neutrophils Absolute Auto 8.4 K/mm3 (1.3-6.7); Neutrophils Percent Auto 82.4 % (45.5-73.1); Platelet Count Result 357 k/mm3 (150-375); Red Blood Count 4.95 M/mm3 (4.6-6.20); Red Cell Distribution Width 14.9 % (11.5-14.5); White Blood Count 10.2 K/mm3 (4.5-10.0)
--- NOTE | 2022-02-21 21:55 | PC.NURSE ---
PRATIK Raymundo on phone with pt's sister Irma at this time.
[2022-02-21 22:16] LABS: Alanine Aminotransferase 17 U/L (6-50); Albumin Level 4.3 g/dL (3.5-5.1); Alkaline Phosphatase 77 U/L (38-126); Anion Gap 11 mmol/L (8-16); Aspartate Amino Transferase 19 U/L (17-59); Bilirubin,Total 0.3 mg/dL (0.2-1.3); Blood Urea Nitrogen 27 mg/dL (9-20); Carbon Dioxide 25 mmol/L (22-30); Chloride 104 mmol/L (98-107); Estimated CRCL calculation 39 ml/min; Estimated Glomerular Filt Rate 35; Glucose 196 mg/dL (65-110); Lipase 46 U/L (23-300); Potassium 3.6 mmol/L (3.4-5.0); Sodium 140 mmol/L (137-145)
[2022-02-21 22:53] VITALS: BP 141/83; PULSE 109; RESP 26; O2SAT 93
[2022-02-21 23:13] LABS: Appearance Urine Clear (Clear); Bilirubin Urine 1+ (Negative); Color Urine Yellow (Yellow); Glucose Urine UA Negative (Negative); Ketones Urine Trace mg/dL (Negative); Leukocyte Esterase Ur Negative LEU/UL (Negative); Nitrate Urine Negative (Negative); Protein Urine 1+ mg/dL (Negative); Specific Grav Ur 1.015 (1.001-1.035); Urobilinogen Urine 0.2 mg/dL (<2.0)
[2022-02-21 23:20] LABS: Add Urine Microscopic? YES; Blood Urine Trace (Negative)
[2022-02-21 23:22] LABS: Bacteria Urine Trace /hpf; Mucus Urine Rare /lpf; Squamous Epithelial Cell Urine Rare /hpf (Few); WBC Urine 0-3 /hpf
[2022-02-21 23:51] VITALS: BP 141/82; PULSE 111; RESP 22; O2SAT 93
[2022-02-22] VITALS (10 sets, daily range): BP systolic 112–147; BP diastolic 60–88; PULSE 96–129; RESP 18–32; TEMP 36.9–38.7; O2SAT 88–96; BMI 27.3
[2022-02-22] MEDS: SODIUM CHLORIDE 0.9% IV 1,000 ML 125 ML IV CONT (03:40)
--- NOTE | 2022-02-22 03:57 | PM.IMHP ---
H&P: HPI History of Present Illness Date/Time: 02/22/22 03:57 Chief Complaint: Abdominal distention and vomiting Narrative: 71-year-old male from a nursing facility with past medical history of anxiety, schizophrenia, tobacco dependence, hyperlipidemia, small-bowel obstructions and dementia is presenting with abdominal distention and vomiting concerning for recurrent small-bowel obstruction. The patient denies chest pain or shortness of breath. He denies nausea vomiting or diarrhea. He denies fevers or chills. In the ER, patient did have an episode of emesis. CT showed small bowel obstruction, NG tube was placed in general surgery was consulted. Review of Systems Review of Systems: ROS unobtainable: Yes unobtainable due to mental status PMFSH Past Medical History Medical History Anxiety Dementia Dysphagia Hyperlipidemia Schizophrenia Tourettes disease Surgical History Surgical History No history of previous surgery Family History Family History Father Coronary artery disease CHF (congestive heart failure) Mother Coronary artery disease Sibling Coronary artery disease Sibling Multiple sclerosis Social History Social History Social History: Mr. Youssef is a snf resident at [facility]. He has been there for 20 years. His parents are and he has two siblings. He is a current smoker and smokes approximately 1-2 packs per week. He does not drink alcohol or use illicit substances. His sister, Jemima Dickerson, is his POA. 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 Years smoked: 50 Smoking status: Light tobacco smoker Tobacco type: cigarettes Second hand tobacco smoke exposure: Yes Alcohol intake: never Substance use: never Gender identity (if verbalized by the patient): Male Spiritual care concerns: No Meds Home Medications and Allergies Home Medications Medication Instructions Recorded Confirmed Type benztropine 0.5 mg tablet 0.5 mg PO TID 07/16/20 02/22/22 History clozapine 100 mg tablet 100 mg PO BID 07/16/20 02/22/22 History fenofibrate micronized 67 mg 67 mg PO DAILY 07/16/20 02/22/22 History capsule lactulose 10 gram/15 mL oral 20 g PO BID 07/16/20 02/22/22 History solution risperidone 1 mg tablet 1 mg PO BID 07/16/20 02/22/22 History sertraline 25 mg tablet 25 mg PO BID 07/16/20 02/22/22 History clozapine 100 mg tablet 300 mg PO HS 07/17/20 02/22/22 History docusate sodium 100 mg tablet 100 mg PO BID 07/17/20 02/22/22 History folic acid 1 mg tablet 1 mg PO DAILY 07/17/20 02/22/22 History omega 8-awj-bit-fish oil 1,000 mg 2 cap PO TID 07/17/20 02/22/22 History (120 mg-180 mg) capsule (Fish Oil) famotidine 40 mg tablet 40 mg PO HS 02/22/22 02/22/22 History tamsulosin 0.4 mg capsule 0.4 mg PO BID 02/22/22 02/22/22 History Allergies Allergy/AdvReac Type Severity Reaction Status Date / Time doxycycline Allergy Intermediate Rash Verified 01/27/22 10:20 Vital Signs Vital Signs - 24 hr 02/21/22 21:32 02/21/22 22:53 02/21/22 23:51 Temperature 97.8 F Pulse Rate 115 H 109 H 111 H Respiratory Rate 20 26 H 22 H Blood Pressure 139/75 141/83 H 141/82 H Pulse Oximetry 94 93 93 Oxygen Delivery Room Air Oxygen Flow Rate 02/22/22 00:52 02/22/22 01:38 02/22/22 02:20 Temperature Pulse Rate 118 H 125 H 129 H Respiratory Rate 20 32 H 22 H Blood Pressure 147/88 H 124/80 140/68 Pulse Oximetry 93 88 L 96 Oxygen Delivery Oxygen Flow Rate 02/22/22 02:22 02/22/22 03:22 Temperature 101.7 F H Pulse Rate 125 H Respiratory Rate 32 H Blood Pressure 145/74 H Pulse Oximetry 96 93 Oxygen Delivery Nasal Cannula Oxygen Flow Rate 2 Exam Narrative: General: No acute distress, alert and oriented per baseline, NG tube in place QUANG
--- NOTE | 2022-02-22 04:03 | ECG_ITS ---
Measurements Intervals [place] Rate: 98 P: 62 AK: 177 QRS: -64 QRSD: 119 T: 73 QT: 363 QTc: 465 Interpretive Statements SINUS RHYTHM INTRAVENTRICULAR CONDUCTION DELAY INCOMPLETE RIGHT BUNDLE BRANCH BLOCK DELAYED PRECORDIAL R/S TRANSITION INFERIOR INFARCT, AGE INDETERMINATE BORDERLINE T WAVE ABNORMALITY- ANTEROLAT/HIGH LAT LEADS ABNORMAL ECG Electronically Signed On 02-22-2022 11:05:25 CDT by Og Feliz D.O.
[2022-02-22] MEDS: SODIUM CHLORIDE 0.9% IV 1,000 ML 999 ML IV CONT (04:20)
--- NOTE | 2022-02-22 04:59 | ADMGEN ---
This patient, John Youssef Jr., was admitted to Medical Room 348-01. Patient/family oriented to hospital policies and general routines including ID bracelet, bed and alarms, visiting hours, pain management, procedures, bathroom and other care routines, personal items, smoking policy, room service/diet, and visiting hours. Information on how to activate the Rapid Response Team has been discussed. Patient/Family are encouraged to report perceived risks to care and to ask questions if they do not understand what they are told or what they should do.
[2022-02-22] MEDS: SODIUM CHLORIDE 0.9% IV 1,000 ML 100 ML IV CONT ×2 (05:38→22:27)
[2022-02-22 05:52] LABS: Basophils Percent Auto 0.5 % (0.2-1.2); Hematocrit 39.8 % (42.0-52.0); Hemoglobin 12.9 g/dL (14.0-18.0); Immature Granulocyte Absolute 0.02 K/mm3 (0.00-0.031); Immature Granulocyte Percent A 0.3 % (0-0.5); Lymphocytes Absolute Auto 0.66 K/mm3 (0.9-3.2); Lymphocytes Percent Auto 10.7 % (18.3-44.2); Mean Corpuscular HGB Conc 32.4 g/dl (32-36); Mean Corpuscular Hemoglobin 28.2 pg (26-34); Mean Corpuscular Volume 86.9 fl (80-100); Mean Platelet Volume 9.8 fl (7.4-10.4); Monocytes Absolute Auto 0.8 K/mm3 (0.1-0.6); Monocytes Percent Auto 13.1 % (2.6-8.5); Neutrophils Absolute Auto 4.7 K/mm3 (1.3-6.7); Neutrophils Percent Auto 75.4 % (45.5-73.1); Platelet Count Result 302 k/mm3 (150-375); Red Blood Count 4.58 M/mm3 (4.6-6.20); Red Cell Distribution Width 15.1 % (11.5-14.5); White Blood Count 6.2 K/mm3 (4.5-10.0)
[2022-02-22 06:09] LABS: Anion Gap 10 mmol/L (8-16); Blood Urea Nitrogen 28 mg/dL (9-20); Calcium 7.9 mg/dL (8.4-10.2); Carbon Dioxide 25 mmol/L (22-30); Chloride 107 mmol/L (98-107); Estimated CRCL calculation 46 ml/min; Estimated Glomerular Filt Rate 46; Glucose 161 mg/dL (65-110); Potassium 3.1 mmol/L (3.4-5.0); Sodium 142 mmol/L (137-145)
--- NOTE | 2022-02-22 12:02 | PM.IMPN ---
Progress Note: A&P Assessment and Plan (1) MARCIA (acute kidney injury): Code(s): N17.9 - Acute kidney failure, unspecified Status: Acute Assessment and Plan: Gentle IV fluid hydration, monitor creatinine (2) Small bowel obstruction: Code(s): K56.609 - Unspecified intestinal obstruction, unspecified as to partial versus complete obstruction Status: Acute Assessment and Plan: NG tube, consult General surgery, NPO continue conservative care (3) Schizophrenia: Code(s): F20.9 - Schizophrenia, unspecified Status: Chronic Assessment and Plan: Continue home medications (4) Hyperlipidemia: Code(s): E78.5 - Hyperlipidemia, unspecified Status: Chronic (5) Tourettes disease: Code(s): F95.2 - Tourette's disorder Status: Chronic (6) COPD (chronic obstructive pulmonary disease): Code(s): J44.9 - Chronic obstructive pulmonary disease, unspecified Status: Chronic Assessment and Plan: Continue home medications, does not appear to be in exacerbation (7) Tobacco dependence: Code(s): F17.200 - Nicotine dependence, unspecified, uncomplicated Status: Acute (8) Fever: Code(s): R50.9 - Fever, unspecified Status: Acute Assessment and Plan: Check blood cultures, urinalysis essentially negative, chest x-ray pending, Tylenol (9) Tachycardia: Code(s): R00.0 - Tachycardia, unspecified Status: Acute Assessment and Plan: Check ECG, Lopressor as needed Subjective Date/time seen: 02/22/22 12:[address] Pain controlled. No additional complaints other than some abdominal pain Exam Narrative: General: No acute distress, alert and oriented per baseline, NG tube in place HEENT: Atraumatic, normocephalic, mucous membranes moist CV: Regular rate and rhythm, S1, S2 Lungs: Clear to auscultation bilaterally, no rales or crackles noted, no wheezes, good air entry Abdomen: Soft, nontender, nondistended Extremities: Normal to inspection Skin: No rashes noted, no lesions or wounds seen Psych: Euthymic, normal affect Objective Data Vital Signs Vital Signs: Vital Signs - 24 hr 02/21/22 21:32 02/21/22 22:53 02/21/22 23:51 Temperature 97.8 F Pulse Rate 115 H 109 H 111 H Respiratory Rate 20 26 H 22 H Blood Pressure 139/75 141/83 H 141/82 H Pulse Oximetry 94 93 93 Oxygen Delivery Room Air Oxygen Flow Rate 02/22/22 00:52 02/22/22 01:38 02/22/22 02:20 Temperature Pulse Rate 118 H 125 H 129 H Respiratory Rate 20 32 H 22 H Blood Pressure 147/88 H 124/80 140/68 Pulse Oximetry 93 88 L 96 Oxygen Delivery Oxygen Flow Rate 02/22/22 02:22 02/22/22 03:22 02/22/22 04:40 Temperature 101.7 F H 99 F Pulse Rate 125 H Respiratory Rate 32 H Blood Pressure 145/74 H Pulse Oximetry 96 93 Oxygen Delivery Nasal Cannula Oxygen Flow Rate 2 02/22/22 05:41 Temperature 100.5 F H Pulse Rate Respiratory Rate Blood Pressure Pulse Oximetry Oxygen Delivery Oxygen Flow Rate Intake/Output Intake/Output: Intake & Output 02/19/22 02/20/22 02/21/22 02/22/22 23:59 23:59 23:59 23:59 Intake Total 1000 1100 Output Total 200 1000 Balance 800 100 Meds/Results Medications: Active Medications Generic Name Dose Route Start Last Admin Trade Name Freq PRN Reason Stop Dose Admin Benztropine Mesylate 0.5 mg 02/22/22 09:00 02/22/22 09:00 Benztropine Mesylate 0.5 Mg Tablet PO Not Given TID KEZIA Docusate Sodium 100 mg 02/22/22 09:00 02/22/22 09:00 Docusate Sodium 100 Mg Capsule PO Not Given BID COUNT INCLUDES THE [facility] Enoxaparin Sodium 40 mg 02/22/22 09:00 02/22/22 09:00 Enoxaparin 40 Mg/0.4 Ml Syringe SUB-Q Not Given DAILY KEZIA Famotidine 40 mg 02/22/22 21:00 Famotidine 20 Mg Tablet PO HS KEZIA Fenofibrate 48 mg 02/22/22 09:00 02/22/22 09:01 Fenofibrate,Micronized 48 Mg Tablet PO Not Given QAM COUNT INCLUDES THE [facility] Fis
--- NOTE | 2022-02-22 13:07 | PM.CNGS ---
Assessment and Plan Assessment and plan (1) Small bowel obstruction: Code(s): K56.609 - Unspecified intestinal obstruction, unspecified as to partial versus complete obstruction Status: Acute Assessment and Plan: CT evidence of small bowel obstruction. No known history of previous abdominal surgery, but does have a history of a small bowel obstruction in 2019 that resolved with conservative measures. Continue NG tube decompression, bowel rest, IV fluids, and analgesics for now. Will have the nurse advance his NG tube. Will get a Gastrografin small bowel series to further evaluate. (2) MARCIA (acute kidney injury): Code(s): N17.9 - Acute kidney failure, unspecified Status: Acute Assessment and Plan: Improving, Creatinine down to 1.5. Continue IV fluids, monitor labs. (3) Fever: Code(s): R50.9 - Fever, unspecified Status: Acute Assessment and Plan: Unclear etiology. WBC normalized. UA negative for UTI. Chest x-ray suggestive of atelectasis. Blood cultures drawn. Will add COVID test. (4) Schizophrenia: Code(s): F20.9 - Schizophrenia, unspecified Status: Chronic (5) Dementia: Code(s): F03.90 - Unspecified dementia without behavioral disturbance Status: Chronic (6) COPD (chronic obstructive pulmonary disease): Code(s): J44.9 - Chronic obstructive pulmonary disease, unspecified Status: Chronic (7) Tobacco dependence: Code(s): F17.200 - Nicotine dependence, unspecified, uncomplicated Status: Acute (8) Constipation: Qualifiers: Constipation type: unspecified constipation type Qualified Code(s): K59.00 - Constipation, unspecified Code(s): K59.00 - Constipation, unspecified Status: Chronic Assessment and Plan: This seems to be a chronic problem for the patient. He was taking lactulose and a stool softener prior to admission. There is a large amount of stool in the colon on CT. The Gastrografin SBS will be both diagnostic and hopefully therapeutic. Will need to continue with a bowel regimen. (9) Tachycardia: Code(s): R00.0 - Tachycardia, unspecified Status: Acute (10) Tourettes disease: Code(s): F95.2 - Tourette's disorder Status: Chronic Plan I have discussed the patient's case and plan of care with Dr. Araujo. Thank you for allowing us to see the patient in consultation and we will continue to follow along with you. History of Present Illness Consult details Consult date: 02/22/22 Reason for consult: other (Small bowel obstruction) Requesting physician: Felicita Hansen DO Narrative: This is a 71-year-old male with a history of schizophrenia, Tourettes, dementia, COPD, and tobacco dependence, who presented to the ER last night from a nursing facility for abdominal distention and vomiting. He does have a history of a small bowel obstruction in July of 2020 that resolved with conservative treatment. Work-up in the ER showed CT evidence of a small bowel obstruction. In the ER, he was also found to be tachycardic with a heart rate of 115. His labs showed a WBC count of 10,200. He was admitted and NG tube was inserted. He has remained tachycardic with a heart rate as high as the 120's. He did have a fever with a tmax of 101.7F around 3:00 this morning. His WBC count is normal today. Urinalysis not suggestive of UTI. Blood cultures were drawn. Chest x-ray this morning ordered and showed mild atelectasis at the lung bases. Also noted NG tube needed advancement as the tip only extends about 2.4 cm beyond the diaphragmatic hiatus. He had 1,000 mL documented NG output overnight. Our service was consulted for the small bowel obstruction. Review of Systems Review of Systems: ROS unobtainable: Yes unobtainable due to mental status PMFSH Past Medical History Medical History Anxiety Dementia Dysphagia Hyperlipidemia Schizop
[2022-02-22 16:36] LABS: SARS-CoV-2 RNA PCR Negative
--- NOTE | 2022-02-22 18:13 | PC.NURSE ---
Pt is NPO with NG suction. Meds were held due to NPO status and NG suction. Cleared with Dr. Kelly.
[2022-02-23 05:16] VITALS: BP 121/72; PULSE 95; RESP 18; TEMP 37.3; O2SAT 92
[2022-02-23 05:39] LABS: Mean Corpuscular HGB Conc 32.5 g/dl (32-36); Mean Corpuscular Hemoglobin 28.6 pg (26-34); Mean Corpuscular Volume 87.9 fl (80-100); Mean Platelet Volume 9.7 fl (7.4-10.4); Platelet Count Result 336 k/mm3 (150-375); Red Blood Count 4.55 M/mm3 (4.6-6.20); Red Cell Distribution Width 15.4 % (11.5-14.5); White Blood Count 8.4 K/mm3 (4.5-10.0)
--- NOTE | 2022-02-23 05:52 | PC.NURSE ---
0400 WHILE ROUNDING ON PT NOTICED NG WAS PULLED OUT. PT CONFUSED UNAWARE HE PULLED OUT NG. PLACED A NEW NG TO LEFT NARE AWAITING PLACEMENT RESULTS
[2022-02-23 05:54] LABS: Anion Gap 9 mmol/L (8-16); Blood Urea Nitrogen 48 mg/dL (9-20); Calcium 7.6 mg/dL (8.4-10.2); Carbon Dioxide 29 mmol/L (22-30); Chloride 112 mmol/L (98-107); Estimated CRCL calculation 35 ml/min; Estimated Glomerular Filt Rate 33; Glucose 157 mg/dL (65-110); Potassium 3.4 mmol/L (3.4-5.0); Sodium 150 mmol/L (137-145)
[2022-02-23 06:46] LABS: Atypical Lymphocytes Present; Band Neutrophils Percent 23 % (0-6); Eosinophils Absolute Manual 0.08 K/mm3 (0.02-0.5); Eosinophils Percent Manual 1 % (0-4); Large Platelets Present; Lymphocytes Absolute Manual 2.43 K/mm3 (1.1-4.5); Metamyelocytes Percent 2 %; Monocytes Absolute Manual 0.33 K/mm3 (0.1-0.90); Monocytes Percent Manual 4 % (3-9); Neutrophils Absolute Manual 5.37 K/mm3 (1.3-6.7); Neutrophils Percent Manual 41 % (46-73); Platelet Estimate Adequate (Adequate); Total Cells Counted 100
[2022-02-23] MEDS: DEXTROSE 5% 1,000 ML 1,000 ML 100 ML IV CONT ×2 (09:03→19:01)
[2022-02-23] MEDS: ENOXAPARIN 40 MG/0.4 ML SYRINGE SUB-Q (09:53)
--- NOTE | 2022-02-23 10:40 | PM.IMPN ---
Progress Note: A&P Assessment and Plan (1) MARCIA (acute kidney injury): Code(s): N17.9 - Acute kidney failure, unspecified Status: Acute Assessment and Plan: Gentle IV fluid hydration, monitor creatinine (2) Small bowel obstruction: Code(s): K56.609 - Unspecified intestinal obstruction, unspecified as to partial versus complete obstruction Status: Acute Assessment and Plan: NG tube, consult General surgery, NPO continue conservative care (3) Schizophrenia: Code(s): F20.9 - Schizophrenia, unspecified Status: Chronic Assessment and Plan: Continue home medications IV Haldol p.r.n. while NPO (4) Tourettes disease: Code(s): F95.2 - Tourette's disorder Status: Chronic (5) COPD (chronic obstructive pulmonary disease): Code(s): J44.9 - Chronic obstructive pulmonary disease, unspecified Status: Chronic Assessment and Plan: Continue home medications, does not appear to be in exacerbation (6) Tobacco dependence: Code(s): F17.200 - Nicotine dependence, unspecified, uncomplicated Status: Acute (7) Fever: Code(s): R50.9 - Fever, unspecified Status: Acute Assessment and Plan: Check blood cultures, urinalysis essentially negative, chest x-ray pending, Tylenol (8) Hypernatremia: Code(s): E87.0 - Hyperosmolality and hypernatremia Status: Acute Assessment and Plan: Likely from NS. Discontinue NS. We will start on D5W. Monitor BMP Subjective Date/time seen: 02/23/22 10:40 Interval history: No overnight event Exam Narrative: General: No acute distress, alert and oriented per baseline, NG tube in place HEENT: Atraumatic, normocephalic, mucous membranes moist CV: Regular rate and rhythm, S1, S2 Lungs: Clear to auscultation bilaterally, no rales or crackles noted, no wheezes, good air entry Abdomen: distended, no bowel sounds Extremities: Normal to inspection Skin: No rashes noted, no lesions or wounds seen Psych: Euthymic, normal affect Objective Data Vital Signs Vital Signs: Vital Signs - 24 hr 02/22/22 15:01 02/22/22 19:47 02/22/22 20:00 Temperature 98.4 F 99.5 F Pulse Rate 96 97 97 Respiratory Rate 18 22 H 22 H Blood Pressure 127/71 112/60 Pulse Oximetry 93 93 93 Oxygen Delivery Nasal Cannula Oxygen Flow Rate 2 02/23/22 05:16 Temperature 99.2 F Pulse Rate 95 Respiratory Rate 18 Blood Pressure 121/72 Pulse Oximetry 92 Oxygen Delivery Oxygen Flow Rate Intake/Output Intake/Output: Intake & Output 02/20/22 02/21/22 02/22/22 02/23/22 23:59 23:59 23:59 23:59 Intake Total 1000 2100 Output Total 200 2200 400 Balance 800 -100 -400 Meds/Results Medications: Active Medications Generic Name Dose Route Start Last Admin Trade Name Freq PRN Reason Stop Dose Admin Benztropine Mesylate 0.5 mg 02/22/22 09:00 02/22/22 18:12 Benztropine Mesylate 0.5 Mg Tablet PO Not Given TID KEZIA Docusate Sodium 100 mg 02/22/22 09:00 02/22/22 18:12 Docusate Sodium 100 Mg Capsule PO Not Given BID [facility] Enoxaparin Sodium 40 mg 02/22/22 09:00 02/23/22 09:53 Enoxaparin 40 Mg/0.4 Ml Syringe SUB-Q 40 mg DAILY [facility] Administration Famotidine 40 mg 02/22/22 21:00 02/22/22 20:14 Famotidine 20 Mg Tablet PO Not Given HS KEZIA Fenofibrate 48 mg 02/22/22 09:00 02/22/22 09:01 Fenofibrate,Micronized 48 Mg Tablet PO Not Given QAM [facility] Fish Oil 2 gm 02/22/22 09:00 02/22/22 18:12 [place] 3 Polyunsat Fatty Acids 1 Gm Cap PO Not Given TID KEZIA Folic Acid 1 mg 02/22/22 09:00 02/22/22 09:01 Folic Acid 1 Mg Tablet PO Not Given DAILY KEZIA Haloperidol Lactate 4 mg 02/23/22 09:14 Haloperidol Lactate 5 Mg/Ml Vial IV PUSH Q4HR PRN Agitation Home Med 1 each 02/22/22 21:00 Clozapine 300mg *Use Home Supply PO 03/24/22 20:59 HS KEZIA Home Med 1 each 02/22/22 08:00 Clozapine 100m
[2022-02-23 14:03] VITALS: BP 138/74; PULSE 92; RESP 20; TEMP 37.2; O2SAT 94
--- NOTE | 2022-02-23 14:42 | PM.PNGS ---
Progress Note: A&P Assessment and Plan (1) Small bowel obstruction: Code(s): K56.609 - Unspecified intestinal obstruction, unspecified as to partial versus complete obstruction Status: Acute Assessment and Plan: SBS yesterday aborted after 6 hours due to vomiting, no contrast in the colon at that time. KUB this morning does show oral contrast material in the colon but still dilated small bowel loops. No bowel function as of yet. Still a large amount of stool in the colon. Will try giving a dulcolax suppository and if no results, then additionally an enema. Continue NG tube, bowel rest, and IV fluids. Asked nursing to get him up to chair and ambulate if tolerated today. Repeat KUB and labs tomorrow. (2) MARCIA (acute kidney injury): Code(s): N17.9 - Acute kidney failure, unspecified Status: Acute Assessment and Plan: Creatinine 2.0 today. Continue IV fluids, monitor labs. (3) Fever: Code(s): R50.9 - Fever, unspecified Status: Acute Assessment and Plan: Unclear etiology. Afebrile since yesterday morning. WBC remains normal. UA negative for UTI. Chest x-ray suggestive of atelectasis. Blood cultures pending. COVID negative. (4) Constipation: Qualifiers: Constipation type: unspecified constipation type Qualified Code(s): K59.00 - Constipation, unspecified Code(s): K59.00 - Constipation, unspecified Status: Chronic Plan I have discussed the patient's case and plan of care with Dr. Araujo. Subjective Subjective Date/Time Seen: 02/23/22 14:42 Patient reports: no bowel movement, afebrile (since yesterday morning with a temp of 100.5F) and other (Tachycardia improved, WBC normal today.) Interval history: The patient's history of schizophrenia, Tourettes, dementia make his history and ROS limited. He does endorse generalized abdominal pain that is mild when questioning him today. He denies flatus. No BM documented since admission. He apparently vomited during the SBS yesterday and the test was stopped after 6 hours. He now has a sitter at the bedside due to pulling out his NG multiple times. Review of Systems Review of Systems: ROS unobtainable: Yes unobtainable due to mental status Exam Const: General: comfortable and no acute distress Orientation/consciousness: Other orientation findings (oriented to baseline) GI: Inspection: distended GI Palp: Yes Soft to palpation, No Tenderness to palpation present (GI), No Guarding due to palpation present (GI) and No Rebound tenderness present Auscultation: Hypoactive bowel sounds present Extrem: General: normal to inspection Psych: Judgement: Limited judgement present (Psych) Objective Data Vital Signs Vital Signs: Vital Signs - 24 hr 02/22/22 15:01 02/22/22 19:47 02/22/22 20:00 Temperature 98.4 F 99.5 F Pulse Rate 96 97 97 Respiratory Rate 18 22 H 22 H Blood Pressure 127/71 112/60 Pulse Oximetry 93 93 93 Oxygen Delivery Nasal Cannula Oxygen Flow Rate 2 02/23/22 05:16 02/23/22 14:03 Temperature 99.2 F 99 F Pulse Rate 95 92 Respiratory Rate 18 20 Blood Pressure 121/72 138/74 Pulse Oximetry 92 94 Oxygen Delivery Oxygen Flow Rate Intake/Output Intake/Output: Intake & Output 02/20/22 02/21/22 02/22/22 02/23/22 23:59 23:59 23:59 23:59 Intake Total 1000 2100 Output Total 200 2200 400 Balance 800 -100 -400 Meds/Results Medications: Active Medications Generic Name Dose Route Start Last Admin Trade Name Freq PRN Reason Stop Dose Admin Benztropine Mesylate 0.5 mg 02/22/22 09:00 02/22/22 18:12 Benztropine Mesylate 0.5 Mg Tablet PO Not Given TID KEZIA Docusate Sodium 100 mg 02/22/22 09:00 02/22/22 18:12 Docusate Sodium 100 Mg Capsule PO Not Given BID KEZIA Enoxaparin Sodium 40 mg 02/22/22 09:00 02/23/22 09:53 Enoxaparin 40 Mg/0.4 Ml Syringe SUB-Q 40 mg DAILY KEZIA Administration Famotidine 40 mg 02/22/22 21:00 02/22/22 20:14
[2022-02-23] MEDS: BISACODYL 10 MG SUPPOSITORY RECTAL (15:13)
[2022-02-23 15:27] VITALS: O2SAT 94
[2022-02-23 19:04] LABS: Anion Gap 7 mmol/L (8-16); Blood Urea Nitrogen 38 mg/dL (9-20); Calcium 7.7 mg/dL (8.4-10.2); Carbon Dioxide 29 mmol/L (22-30); Chloride 112 mmol/L (98-107); Estimated CRCL calculation 57 ml/min; Estimated Glomerular Filt Rate 60; Glucose 155 mg/dL (65-110); Potassium 3.5 mmol/L (3.4-5.0); Sodium 148 mmol/L (137-145)
[2022-02-23 19:32] VITALS: PULSE 92; RESP 20; O2SAT 94
[2022-02-23 20:23] VITALS: BP 135/70; PULSE 86; RESP 20; TEMP 37; O2SAT 98
[2022-02-24 04:12] VITALS: BP 146/71; PULSE 87; RESP 20; TEMP 36.8; O2SAT 94
[2022-02-24] MEDS: DEXTROSE 5% 1,000 ML 1,000 ML 100 ML IV CONT ×2 (04:40→21:53)
[2022-02-24 05:47] LABS: Basophils Percent Auto 0.5 % (0.2-1.2); Eosinophils Percent Auto 0.2 % (0-4.4); Hematocrit 41.9 % (42.0-52.0); Hemoglobin 12.7 g/dL (14.0-18.0); Immature Granulocyte Absolute 0.03 K/mm3 (0.00-0.031); Immature Granulocyte Percent A 0.5 % (0-0.5); Lymphocytes Absolute Auto 1.43 K/mm3 (0.9-3.2); Lymphocytes Percent Auto 21.5 % (18.3-44.2); Mean Corpuscular HGB Conc 30.3 g/dl (32-36); Mean Corpuscular Hemoglobin 27.7 pg (26-34); Mean Corpuscular Volume 91.3 fl (80-100); Mean Platelet Volume 9.6 fl (7.4-10.4); Monocytes Absolute Auto 0.9 K/mm3 (0.1-0.6); Monocytes Percent Auto 13.4 % (2.6-8.5); Neutrophils Absolute Auto 4.3 K/mm3 (1.3-6.7); Neutrophils Percent Auto 63.9 % (45.5-73.1); Platelet Count Result 321 k/mm3 (150-375); Red Blood Count 4.59 M/mm3 (4.6-6.20); Red Cell Distribution Width 15.3 % (11.5-14.5); White Blood Count 6.7 K/mm3 (4.5-10.0)
[2022-02-24 05:58] LABS: Anion Gap 5 mmol/L (8-16); Blood Urea Nitrogen 26 mg/dL (9-20); Calcium 7.9 mg/dL (8.4-10.2); Carbon Dioxide 29 mmol/L (22-30); Chloride 112 mmol/L (98-107); Estimated CRCL calculation 68 ml/min; Estimated Glomerular Filt Rate > 60; Glucose 150 mg/dL (65-110); Potassium 3.5 mmol/L (3.4-5.0); Sodium 146 mmol/L (137-145)
[2022-02-24] MEDS: ENOXAPARIN 40 MG/0.4 ML SYRINGE SUB-Q (10:36)
--- NOTE | 2022-02-24 11:48 | PM.IMPN ---
Progress Note: A&P Assessment and Plan (1) MARCIA (acute kidney injury): Code(s): N17.9 - Acute kidney failure, unspecified Status: Acute Assessment and Plan: Gentle IV fluid hydration, monitor creatinine (2) Small bowel obstruction: Code(s): K56.609 - Unspecified intestinal obstruction, unspecified as to partial versus complete obstruction Status: Acute Assessment and Plan: NG tube, consult General surgery, NPO continue conservative care (3) Schizophrenia: Code(s): F20.9 - Schizophrenia, unspecified Status: Chronic Assessment and Plan: Continue home medications IV Haldol p.r.n. while NPO (4) Tourettes disease: Code(s): F95.2 - Tourette's disorder Status: Chronic (5) COPD (chronic obstructive pulmonary disease): Code(s): J44.9 - Chronic obstructive pulmonary disease, unspecified Status: Chronic Assessment and Plan: Continue home medications, does not appear to be in exacerbation (6) Tobacco dependence: Code(s): F17.200 - Nicotine dependence, unspecified, uncomplicated Status: Acute (7) Fever: Code(s): R50.9 - Fever, unspecified Status: Acute Assessment and Plan: Check blood cultures, urinalysis essentially negative, chest x-ray pending, Tylenol (8) Hypernatremia: Code(s): E87.0 - Hyperosmolality and hypernatremia Status: Acute Assessment and Plan: Likely from NS. Discontinue NS. We will start on D5W. Monitor BMP Subjective Date/time seen: 02/24/22 11:[address] Patient denies complaints. Exam Narrative: General: No acute distress, alert and oriented per baseline, NG tube in place HEENT: Atraumatic, normocephalic, mucous membranes moist CV: Regular rate and rhythm, S1, S2 Lungs: Clear to auscultation bilaterally, no rales or crackles noted, no wheezes, good air entry Abdomen: distended, no bowel sounds Extremities: Normal to inspection Skin: No rashes noted, no lesions or wounds seen Psych: Euthymic, normal affect Objective Data Vital Signs Vital Signs: Vital Signs - 24 hr 02/23/22 14:03 02/23/22 15:27 02/23/22 19:32 Temperature 99 F Pulse Rate 92 92 Respiratory Rate 20 20 Blood Pressure 138/74 Pulse Oximetry 94 94 94 Oxygen Delivery Nasal Cannula Nasal Cannula Oxygen Flow Rate 2 2 02/23/22 20:23 02/24/22 04:12 Temperature 98.6 F 98.3 F Pulse Rate 86 87 Respiratory Rate 20 20 Blood Pressure 135/70 146/71 H Pulse Oximetry 98 94 Oxygen Delivery Oxygen Flow Rate Intake/Output Intake/Output: Intake & Output 02/21/22 02/22/22 02/23/22 02/24/22 23:59 23:59 23:59 23:59 Intake Total 1000 2100 1000 1000 Output Total 200 2200 900 Balance 800 -[phone] Meds/Results Medications: Active Medications Generic Name Dose Route Start Last Admin Trade Name Freq PRN Reason Stop Dose Admin Benztropine Mesylate 0.5 mg 02/22/22 09:00 02/22/22 18:12 Benztropine Mesylate 0.5 Mg Tablet PO Not Given TID [facility] Docusate Sodium 100 mg 02/22/22 09:00 02/22/22 18:12 Docusate Sodium 100 Mg Capsule PO Not Given BID [facility] Enoxaparin Sodium 40 mg 02/22/22 09:00 02/24/22 10:36 Enoxaparin 40 Mg/0.4 Ml Syringe SUB-Q 40 mg DAILY [facility] Administration Famotidine 40 mg 02/22/22 21:00 02/22/22 20:14 Famotidine 20 Mg Tablet PO Not Given HS [facility] Fenofibrate 48 mg 02/22/22 09:00 02/22/22 09:01 Fenofibrate,Micronized 48 Mg Tablet PO Not Given QAM [facility] Fish Oil 2 gm 02/22/22 09:00 02/22/22 18:12 [place] 3 Polyunsat Fatty Acids 1 Gm Cap PO Not Given TID [facility] Folic Acid 1 mg 02/22/22 09:00 02/22/22 09:01 Folic Acid 1 Mg Tablet PO Not Given DAILY [facility] Haloperidol Lactate 4 mg 02/23/22 09:14 Haloperidol Lactate 5 Mg/Ml Vial IV PUSH Q4HR PRN Agitation Home Med 1 each 02/22/22 21:00 Clozapine 300mg *Use Home Supply PO 03/24/22 20:59 HS [facility]
[2022-02-24 14:00] VITALS: BP 150/75; PULSE 85; RESP 16; TEMP 36.2; O2SAT 96
--- NOTE | 2022-02-24 16:27 | PM.PNGS ---
Progress Note: A&P Assessment and Plan (1) Upper gastrointestinal hemorrhage: Code(s): K92.2 - Gastrointestinal hemorrhage, unspecified Status: Acute Assessment and Plan: has old blood draining from NG tube. H&H has been stable last 3 days. Is not on any acid reducing medication. Will start Protonix IV daily. (2) Small bowel obstruction: Code(s): K56.609 - Unspecified intestinal obstruction, unspecified as to partial versus complete obstruction Status: Acute Assessment and Plan: Still has dilated large and small bowel. A lot of stool in the colon. Did have a bowel movement today. I will go ahead and give soapsuds enema. Constipation may be playing a role in his persistent small bowel dilatation. (3) Constipation: Qualifiers: Constipation type: unspecified constipation type Qualified Code(s): K59.00 - Constipation, unspecified Code(s): K59.00 - Constipation, unspecified Status: Chronic Assessment and Plan: Chronic, evident on plain films as well. See above (4) Schizophrenia: Code(s): F20.9 - Schizophrenia, unspecified Status: Chronic Subjective Subjective Date/Time Seen: 02/24/22 16:27 Patient reports: pain is less (Not having pain) and other ( patient minimally verbal) Review of Systems Review of Systems: ROS unobtainable: Yes unobtainable due to medical condition ( mental illness) Exam Const: General: comfortable, no acute distress, alert and awake GI: Inspection: distended and other ( old blood draining from NG tube) GI Palp: Yes Soft to palpation, No Tenderness to palpation present (GI), No Guarding due to palpation present (GI) and No Ascites present Auscultation: absent bowel sounds Objective Data Vital Signs Vital Signs: Vital Signs - 24 hr 02/23/22 19:32 02/23/22 20:23 02/24/22 04:12 Temperature 37.0 C 36.8 C Pulse Rate 92 86 87 Respiratory Rate 20 20 20 Blood Pressure 135/70 146/71 H Pulse Oximetry 94 98 94 Oxygen Delivery Nasal Cannula Oxygen Flow Rate 2 02/24/22 14:00 Temperature 36.2 C L Pulse Rate 85 Respiratory Rate 16 Blood Pressure 150/75 H Pulse Oximetry 96 Oxygen Delivery Oxygen Flow Rate Intake/Output Intake/Output: Intake & Output 02/21/22 02/22/22 02/23/2213/22 23:59 23:59 23:59 23:59 Intake Total 1000 2100 1000 1000 Output Total 200 2200 900 Balance 800 -[phone] Meds/Results Medications: Active Medications Generic Name Dose Route Start Last Admin Trade Name Freq PRN Reason Stop Dose Admin Benztropine Mesylate 0.5 mg 02/22/22 09:00 02/22/22 18:12 Benztropine Mesylate 0.5 Mg Tablet PO Not Given TID [facility] Docusate Sodium 100 mg 02/22/22 09:00 02/22/22 18:12 Docusate Sodium 100 Mg Capsule PO Not Given BID [facility] Enoxaparin Sodium 40 mg 02/22/22 09:00 02/24/22 10:36 Enoxaparin 40 Mg/0.4 Ml Syringe SUB-Q 40 mg DAILY [facility] Administration Famotidine 40 mg 02/22/22 21:00 02/22/22 20:14 Famotidine 20 Mg Tablet PO Not Given HS [facility] Fenofibrate 48 mg 02/22/22 09:00 02/22/22 09:01 Fenofibrate,Micronized 48 Mg Tablet PO Not Given QAM [facility] Fish Oil 2 gm 02/22/22 09:00 02/22/22 18:12 [place] 3 Polyunsat Fatty Acids 1 Gm Cap PO Not Given TID [facility] Folic Acid 1 mg 02/22/22 09:00 02/22/22 09:01 Folic Acid 1 Mg Tablet PO Not Given DAILY [facility] Haloperidol Lactate 4 mg 02/23/22 09:14 Haloperidol Lactate 5 Mg/Ml Vial IV PUSH Q4HR PRN Agitation Home Med 1 each 02/22/22 21:00 Clozapine 300mg *Use Home Supply PO 03/24/22 20:59 HS [facility] Home Med 1 each 02/22/22 08:00 Clozapine 100mg Tablet *Use Home Supply PO 03/24/22 07:59 0800,1200 [facility] Dextrose 1,000 mls @ 75 mls/hr 02/23/22 08:10 02/24/22 04:40 Dextrose 5% 1,000 Ml IV CONT 100 mls/hr .[id number] [facility] Administration Lactulose 20 gm 02/22/22 09:00 02/22/22 18:12 Lactulose 20 Gm/30 Ml Udc PO N
[2022-02-24] MEDS: PANTOPRAZOLE SODIUM IV 40 MG VIAL IV PUSH (17:27)
[2022-02-24 19:45] VITALS: O2SAT 94
[2022-02-24 20:36] VITALS: BP 142/78; PULSE 85; RESP 20; TEMP 36.4; O2SAT 94
[2022-02-25] VITALS (7 sets, daily range): BP systolic 139–165; BP diastolic 69–80; PULSE 80–91; RESP 18; TEMP 36.6–36.7; O2SAT 93–95
[2022-02-25 05:55] LABS: Basophils Percent Auto 0.4 % (0.2-1.2); Eosinophils Percent Auto 0.1 % (0-4.4); Hematocrit 39.4 % (42.0-52.0); Hemoglobin 12.4 g/dL (14.0-18.0); Immature Granulocyte Absolute 0.08 K/mm3 (0.00-0.031); Immature Granulocyte Percent A 0.9 % (0-0.5); Lymphocytes Absolute Auto 2.02 K/mm3 (0.9-3.2); Lymphocytes Percent Auto 22.4 % (18.3-44.2); Mean Corpuscular HGB Conc 31.5 g/dl (32-36); Mean Corpuscular Hemoglobin 28.2 pg (26-34); Mean Corpuscular Volume 89.5 fl (80-100); Mean Platelet Volume 9.7 fl (7.4-10.4); Monocytes Absolute Auto 0.9 K/mm3 (0.1-0.6); Monocytes Percent Auto 9.9 % (2.6-8.5); Neutrophils Percent Auto 66.3 % (45.5-73.1); Platelet Count Result 310 k/mm3 (150-375); Red Cell Distribution Width 14.5 % (11.5-14.5)
[2022-02-25 06:09] LABS: Anion Gap 4 mmol/L (8-16); Blood Urea Nitrogen 20 mg/dL (9-20); Calcium 8.2 mg/dL (8.4-10.2); Carbon Dioxide 27 mmol/L (22-30); Chloride 110 mmol/L (98-107); Estimated CRCL calculation 68 ml/min; Estimated Glomerular Filt Rate > 60; Glucose 136 mg/dL (65-110); Potassium 3.5 mmol/L (3.4-5.0); Sodium 141 mmol/L (137-145)
[2022-02-25] MEDS: ENOXAPARIN 40 MG/0.4 ML SYRINGE SUB-Q (08:32)
[2022-02-25] MEDS: PANTOPRAZOLE SODIUM IV 40 MG VIAL IV PUSH (08:33)
--- NOTE | 2022-02-25 10:13 | PM.PNGS ---
Progress Note: A&P Assessment and Plan (1) Small bowel obstruction: Code(s): K56.609 - Unspecified intestinal obstruction, unspecified as to partial versus complete obstruction Status: Acute Assessment and Plan: much improved, exam benign, will dc NG and start clears Subjective Subjective Date/Time Seen: 02/25/22 10:13 feels better, multiple lg BMs yesterday Review of Systems Review of Systems: ROS unobtainable: Yes unobtainable due to mental status Exam Const: General: cooperative, comfortable and no acute distress Resp: Auscultation: clear to auscultation bilaterally Cardio: Rate: regular rate Rhythm: regular rhythm GI: Inspection: normal to inspection and non-distended GI Palp: No abdominal tenderness, Yes Soft to palpation, No Tenderness to palpation present (GI) and No Guarding due to palpation present (GI) Objective Data Vital Signs Vital Signs: Vital Signs - 24 hr 02/24/22 14:00 02/24/22 20:36 02/24/22 19:45 Temperature 36.2 C L 36.4 C L Pulse Rate 85 85 Respiratory Rate 16 20 Blood Pressure 150/75 H 142/78 H Pulse Oximetry 96 94 94 Oxygen Delivery Nasal Cannula Oxygen Flow Rate 2 02/25/22 06:13 Temperature 36.6 C Pulse Rate 80 Respiratory Rate 18 Blood Pressure 139/69 Pulse Oximetry 93 Oxygen Delivery Oxygen Flow Rate Intake/Output Intake/Output: Intake & Output 02/22/22 02/23/22 02/24/22 02/25/22 23:59 23:59 23:59 23:59 Intake Total 2100 1000 2000 Output Total 2200 900 Balance -046 942 2833 Meds/Results Medications: Active Medications Generic Name Dose Route Start Last Admin Trade Name Freq PRN Reason Stop Dose Admin Benztropine Mesylate 0.5 mg 02/22/22 09:00 02/22/22 18:12 Benztropine Mesylate 0.5 Mg Tablet PO Not Given TID [facility] Docusate Sodium 100 mg 02/22/22 09:00 02/22/22 18:12 Docusate Sodium 100 Mg Capsule PO Not Given BID [facility] Enoxaparin Sodium 40 mg 02/22/22 09:00 02/25/22 08:32 Enoxaparin 40 Mg/0.4 Ml Syringe SUB-Q 40 mg DAILY [facility] Administration Famotidine 40 mg 02/22/22 21:00 02/22/22 20:14 Famotidine 20 Mg Tablet PO Not Given HS [facility] Fenofibrate 48 mg 02/22/22 09:00 02/22/22 09:01 Fenofibrate,Micronized 48 Mg Tablet PO Not Given QAM [facility] Fish Oil 2 gm 02/22/22 09:00 02/22/22 18:12 [place] 3 Polyunsat Fatty Acids 1 Gm Cap PO Not Given TID [facility] Folic Acid 1 mg 02/22/22 09:00 02/22/22 09:01 Folic Acid 1 Mg Tablet PO Not Given DAILY [facility] Haloperidol Lactate 4 mg 02/23/22 09:14 Haloperidol Lactate 5 Mg/Ml Vial IV PUSH Q4HR PRN Agitation Home Med 1 each 02/22/22 21:00 Clozapine 300mg *Use Home Supply PO 03/24/22 20:59 HS [facility] Home Med 1 each 02/22/22 08:00 Clozapine 100mg Tablet *Use Home Supply PO 03/24/22 07:59 0800,1200 [facility] Dextrose 1,000 mls @ 75 mls/hr 02/23/22 08:10 02/24/22 21:53 Dextrose 5% 1,000 Ml IV CONT 100 mls/hr .[id number] [facility] Administration Lactulose 20 gm 02/22/22 09:00 02/22/22 18:12 Lactulose 20 Gm/30 Ml Udc PO Not Given BID [facility] Metoprolol Tartrate 5 mg 02/22/22 04:06 Metoprolol Tartrate Inj 5 Mg/5 Ml Vial IV PUSH Q8HR PRN BP, >160/>100, HR >100 Miscellaneous Information 1 each 02/22/22 00:01 Clozapine- Okayed Use Of Home Medication XX 03/24/22 00:00 CLARIFY [facility] Ondansetron HCl 4 mg 02/22/22 01:19 Ondansetron Inj 4 Mg/2 Ml Vial IV PUSH Q4H PRN Nausea Pantoprazole Sodium 40 mg 02/25/22 09:00 02/25/22 08:33 Pantoprazole Sodium Iv 40 Mg Vial IV PUSH 40 mg QAM [facility] Administration Risperidone 1 mg 02/22/22 09:00 02/22/22 18:12 Risperidone 1 Mg Tablet PO Not Given BID [facility] Sertraline HCl 25 mg 02/22/22 09:00 02/22/22 18:12 Sertraline Hcl 25 Mg Tablet PO Not Given BID [facility] Tamsulosin HCl 0.4 mg 02/22/22 09:00 02/22/22 18:12 Tamsulosin Hcl 0.4 Mg Capsule PO Not Given BID [facility]
[2022-02-25] MEDS: DEXTROSE 5% 1,000 ML 1,000 ML 100 ML IV CONT (11:21)
--- NOTE | 2022-02-25 11:31 | PM.IMPN ---
Progress Note: A&P Assessment and Plan (1) MARCIA (acute kidney injury): Code(s): N17.9 - Acute kidney failure, unspecified Status: Acute Assessment and Plan: Gentle IV fluid hydration, monitor creatinine (2) Small bowel obstruction: Code(s): K56.609 - Unspecified intestinal obstruction, unspecified as to partial versus complete obstruction Status: Acute Assessment and Plan: NG tube, consult General surgery, NPO continue conservative care kub noted (3) Schizophrenia: Code(s): F20.9 - Schizophrenia, unspecified Status: Chronic Assessment and Plan: Continue home medications IV Haldol p.r.n. while NPO (4) Tourettes disease: Code(s): F95.2 - Tourette's disorder Status: Chronic (5) COPD (chronic obstructive pulmonary disease): Code(s): J44.9 - Chronic obstructive pulmonary disease, unspecified Status: Chronic Assessment and Plan: Continue home medications, does not appear to be in exacerbation (6) Tobacco dependence: Code(s): F17.200 - Nicotine dependence, unspecified, uncomplicated Status: Acute (7) Fever: Code(s): R50.9 - Fever, unspecified Status: Acute Assessment and Plan: Check blood cultures, urinalysis essentially negative, chest x-ray pending, Tylenol (8) Hypernatremia: Code(s): E87.0 - Hyperosmolality and hypernatremia Status: Acute Assessment and Plan: Likely from NS. Discontinue NS. We will start on D5W. Monitor BMP Subjective Date/time seen: 02/25/22 11:31 No complaints NG tube in place Exam Narrative: General: No acute distress, alert and oriented per baseline, NG tube in place HEENT: Atraumatic, normocephalic, mucous membranes moist CV: Regular rate and rhythm, S1, S2 Lungs: Clear to auscultation bilaterally, no rales or crackles noted, no wheezes, good air entry Abdomen: distended, no bowel sounds Extremities: Normal to inspection Skin: No rashes noted, no lesions or wounds seen Psych: Euthymic, normal affect Objective Data Vital Signs Vital Signs: Vital Signs - 24 hr 02/24/22 14:00 02/24/22 20:36 02/24/22 19:45 Temperature 97.1 F L 97.5 F L Pulse Rate 85 85 Respiratory Rate 16 20 Blood Pressure 150/75 H 142/78 H Pulse Oximetry 96 94 94 Oxygen Delivery Nasal Cannula Oxygen Flow Rate 2 02/25/22 06:13 Temperature 98 F Pulse Rate 80 Respiratory Rate 18 Blood Pressure 139/69 Pulse Oximetry 93 Oxygen Delivery Oxygen Flow Rate Intake/Output Intake/Output: Intake & Output 02/22/22 02/23/22 02/24/22 02/25/22 23:59 23:59 23:59 23:59 Intake Total 2100 1000 1999 1000 Output Total 2200 900 Balance -699 716 2466 1000 Meds/Results Medications: Active Medications Generic Name Dose Route Start Last Admin Trade Name Freq PRN Reason Stop Dose Admin Benztropine Mesylate 0.5 mg 02/22/22 09:00 02/22/22 18:12 Benztropine Mesylate 0.5 Mg Tablet PO Not Given TID [facility] Docusate Sodium 100 mg 02/22/22 09:00 02/22/22 18:12 Docusate Sodium 100 Mg Capsule PO Not Given BID [facility] Enoxaparin Sodium 40 mg 02/22/22 09:00 02/25/22 08:32 Enoxaparin 40 Mg/0.4 Ml Syringe SUB-Q 40 mg DAILY [facility] Administration Famotidine 40 mg 02/22/22 21:00 02/22/22 20:14 Famotidine 20 Mg Tablet PO Not Given HS [facility] Fenofibrate 48 mg 02/22/22 09:00 02/22/22 09:01 Fenofibrate,Micronized 48 Mg Tablet PO Not Given QAM [facility] Fish Oil 2 gm 02/22/22 09:00 02/22/22 18:12 [place] 3 Polyunsat Fatty Acids 1 Gm Cap PO Not Given TID [facility] Folic Acid 1 mg 02/22/22 09:00 02/22/22 09:01 Folic Acid 1 Mg Tablet PO Not Given DAILY [facility] Haloperidol Lactate 4 mg 02/23/22 09:14 Haloperidol Lactate 5 Mg/Ml Vial IV PUSH Q4HR PRN Agitation Home Med 1 each 02/22/22 21:00 Clozapine 300mg *Use Home Supply PO 03/24/22 20:59 HS [facility] Home Med 1 each 02/22/22 08:00 Clozap
--- NOTE | 2022-02-25 15:50 | PCCCNOTE ---
On 02/25/22, the student, Jannet Meadows, provided care and completed [facility] documentation on this patient. I have reviewed the student's documentation and agree with the findings.
[2022-02-26] VITALS: BP 140/76; PULSE 84; RESP 18; TEMP 37.1; O2SAT 92
[2022-02-26] MEDS: DEXTROSE 5% 1,000 ML 1,000 ML 100 ML IV CONT (05:45)
[2022-02-26 06:00] LABS: Basophils Absolute Auto 0.1 K/mm3 (0.0-0.1); Basophils Percent Auto 0.7 % (0.2-1.2); Eosinophils Percent Auto 0.1 % (0-4.4); Hematocrit 41.3 % (42.0-52.0); Hemoglobin 12.8 g/dL (14.0-18.0); Immature Granulocyte Absolute 0.31 K/mm3 (0.00-0.031); Immature Granulocyte Percent A 2.9 % (0-0.5); Lymphocytes Absolute Auto 2.07 K/mm3 (0.9-3.2); Lymphocytes Percent Auto 19.2 % (18.3-44.2); Mean Corpuscular Hemoglobin 27.9 pg (26-34); Mean Corpuscular Volume 90.2 fl (80-100); Mean Platelet Volume 9.8 fl (7.4-10.4); Monocytes Absolute Auto 0.9 K/mm3 (0.1-0.6); Monocytes Percent Auto 8.4 % (2.6-8.5); Neutrophils Absolute Auto 7.4 K/mm3 (1.3-6.7); Neutrophils Percent Auto 68.7 % (45.5-73.1); Platelet Count Result 305 k/mm3 (150-375); Red Blood Count 4.58 M/mm3 (4.6-6.20); Red Cell Distribution Width 14.4 % (11.5-14.5); White Blood Count 10.8 K/mm3 (4.5-10.0)
[2022-02-26 06:11] LABS: Anion Gap 4 mmol/L (8-16); Blood Urea Nitrogen 17 mg/dL (9-20); Calcium 8.4 mg/dL (8.4-10.2); Carbon Dioxide 30 mmol/L (22-30); Chloride 109 mmol/L (98-107); Estimated CRCL calculation 62 ml/min; Estimated Glomerular Filt Rate > 60; Glucose 134 mg/dL (65-110); Potassium 3.9 mmol/L (3.4-5.0); Sodium 143 mmol/L (137-145)
[2022-02-26 06:57] VITALS: BP 131/75; PULSE 86; RESP 16; TEMP 37; O2SAT 94
[2022-02-26] MEDS: ENOXAPARIN 40 MG/0.4 ML SYRINGE SUB-Q (08:37)
[2022-02-26] MEDS: PANTOPRAZOLE SODIUM IV 40 MG VIAL IV PUSH (08:37)
[2022-02-26 09:06] VITALS: O2SAT 94
[2022-02-26] MEDS: OMEGA 3 POLYUNSAT FATTY ACIDS 1 GM CAP 2 GM PO ×4 (10:16→17:35)
[2022-02-26] MEDS: TAMSULOSIN HCL 0.4 MG CAPSULE PO ×3 (10:16→17:36)
[2022-02-26] MEDS: FENOFIBRATE,MICRONIZED 48 MG TABLET PO ×2 (10:16→10:17)
[2022-02-26] MEDS: FOLIC ACID 1 MG TABLET PO ×2 (10:16→10:17)
[2022-02-26] MEDS: DOCUSATE SODIUM 100 MG CAPSULE PO ×3 (10:16→17:35)
[2022-02-26] MEDS: SERTRALINE HCL 25 MG TABLET PO ×3 (10:16→17:36)
[2022-02-26] MEDS: risperiDONE 1 MG TABLET PO ×3 (10:16→17:35)
[2022-02-26] MEDS: BENZTROPINE MESYLATE 0.5 MG TABLET PO ×4 (10:16→17:34)
[2022-02-26] MEDS: LACTULOSE 20 GM/30 ML UDC PO ×2 (10:18→17:34)
--- NOTE | 2022-02-26 11:05 | PM.PNGS ---
Progress Note: A&P Assessment and Plan (1) Small bowel obstruction: Code(s): K56.609 - Unspecified intestinal obstruction, unspecified as to partial versus complete obstruction Status: Acute Assessment and Plan: resolved, exam benign, +bowel fxn, cont bowel regimen, ADAT, no acute surgical issues, will s/o, call c ?s, issues (2) Constipation: Qualifiers: Constipation type: unspecified constipation type Qualified Code(s): K59.00 - Constipation, unspecified Code(s): K59.00 - Constipation, unspecified Status: Chronic Assessment and Plan: resolved, cont bowel regimen Subjective Subjective Date/Time Seen: 02/26/22 11:05 feels good, no pain, no N/V, lilian clears, BM this am Review of Systems Review of Systems: All systems reviewed & are unremarkable except as noted in HPI and below Exam Const: General: cooperative, comfortable and no acute distress Resp: Auscultation: clear to auscultation bilaterally Cardio: Rate: regular rate Rhythm: regular rhythm GI: Inspection: normal to inspection and distended GI Palp: No abdominal tenderness, Yes Soft to palpation, No Tenderness to palpation present (GI), No Guarding due to palpation present (GI) and No Rigid due to palpation Objective Data Vital Signs Vital Signs: Vital Signs - 24 hr 02/25/22 14:33 02/25/22 17:04 02/25/22 19:26 Temperature 36.6 C Pulse Rate 82 91 Respiratory Rate 18 18 Blood Pressure 165/80 H Pulse Oximetry 95 94 95 Oxygen Delivery Nasal Cannula Oxygen Flow Rate 2 02/25/22 19:26 02/25/22 21:42 02/26/22 00:00 Temperature 36.7 C 37.1 C Pulse Rate 86 84 Respiratory Rate 18 18 Blood Pressure 148/71 H 140/76 Pulse Oximetry 95 94 92 Oxygen Delivery Room Air Oxygen Flow Rate 02/25/22 22:13 02/26/22 06:57 02/26/22 09:06 Temperature 37.0 C Pulse Rate 86 Respiratory Rate 16 Blood Pressure 131/75 Pulse Oximetry 93 94 94 Oxygen Delivery Room Air Room Air Oxygen Flow Rate Intake/Output Intake/Output: Intake & Output 02/23/22 02/24/22 02/25/22 02/26/22 23:59 23:59 23:59 23:59 Intake Total 1000 1999 2440 340 Output Total 900 Balance 100 1999 2440 340 Meds/Results Medications: Active Medications Generic Name Dose Route Start Last Admin Trade Name Freq PRN Reason Stop Dose Admin Benztropine Mesylate 0.5 mg 02/22/22 09:00 02/26/22 10:17 Benztropine Mesylate 0.5 Mg Tablet PO 0.5 mg TID [facility] Administration Docusate Sodium 100 mg 02/22/22 09:00 02/26/22 10:17 Docusate Sodium 100 Mg Capsule PO 100 mg BID [facility] Administration Enoxaparin Sodium 40 mg 02/22/22 09:00 02/26/22 08:37 Enoxaparin 40 Mg/0.4 Ml Syringe SUB-Q 40 mg DAILY [facility] Administration Famotidine 40 mg 02/22/22 21:00 02/22/22 20:14 Famotidine 20 Mg Tablet PO Not Given HS [facility] Fenofibrate 48 mg 02/22/22 09:00 02/26/22 10:17 Fenofibrate,Micronized 48 Mg Tablet PO 48 mg QAM [facility] Administration Fish Oil 2 gm 02/22/22 09:00 02/26/22 10:17 [place] 3 Polyunsat Fatty Acids 1 Gm Cap PO 2 gm TID [facility] Administration Folic Acid 1 mg 02/22/22 09:00 02/26/22 10:17 Folic Acid 1 Mg Tablet PO 1 mg DAILY [facility] Administration Haloperidol Lactate 4 mg 02/23/22 09:14 Haloperidol Lactate 5 Mg/Ml Vial IV PUSH Q4HR PRN Agitation Home Med 1 each 02/22/22 21:00 Clozapine 300mg *Use Home Supply PO 03/24/22 20:59 HS [facility] Home Med 1 each 02/22/22 08:00 Clozapine 100mg Tablet *Use Home Supply PO 03/24/22 07:59 0800,1200 [facility] Lactulose 20 gm 02/22/22 09:00 02/26/22 10:18 Lactulose 20 Gm/30 Ml Udc PO 20 gm BID [facility] Administration Metoprolol Tartrate 5 mg 02/22/22 04:06 Metoprolol Tartrate Inj 5 Mg/5 Ml Vial IV PUSH Q8HR PRN BP, >160/>100, HR >100 Miscellaneous Information 1 each 02/22/22 00:01 Clozapine- Md Okayed Use Of Home Medication XX 03/24/22 00:00 CLARIFY [facility]
--- NOTE | 2022-02-26 12:06 | PM.IMPN ---
Progress Note: A&P Assessment and Plan (1) MARCIA (acute kidney injury): Code(s): N17.9 - Acute kidney failure, unspecified Status: Acute Assessment and Plan: Gentle IV fluid hydration, monitor creatinine (2) Small bowel obstruction: Code(s): K56.609 - Unspecified intestinal obstruction, unspecified as to partial versus complete obstruction Status: Acute Assessment and Plan: NG tube has been pulled. Tolerating clear liquid diet. Management per surgery. (3) Schizophrenia: Code(s): F20.9 - Schizophrenia, unspecified Status: Chronic Assessment and Plan: Continue home medications IV Haldol p.r.n. while NPO (4) Tourettes disease: Code(s): F95.2 - Tourette's disorder Status: Chronic (5) COPD (chronic obstructive pulmonary disease): Code(s): J44.9 - Chronic obstructive pulmonary disease, unspecified Status: Chronic Assessment and Plan: Continue home medications, does not appear to be in exacerbation (6) Tobacco dependence: Code(s): F17.200 - Nicotine dependence, unspecified, uncomplicated Status: Acute (7) Fever: Code(s): R50.9 - Fever, unspecified Status: Acute Assessment and Plan: Check blood cultures, urinalysis essentially negative, chest x-ray pending, Tylenol (8) Hypernatremia: Code(s): E87.0 - Hyperosmolality and hypernatremia Status: Acute Assessment and Plan: Likely from NS. Discontinue NS. We will start on D5W. Monitor BMP Subjective Date/time seen: 02/26/22 12:06 NG tube has been pulled. Tolerating clear liquid diet Exam Narrative: General: No acute distress, alert and oriented per baseline, NG tube in place HEENT: Atraumatic, normocephalic, mucous membranes moist CV: Regular rate and rhythm, S1, S2 Lungs: Clear to auscultation bilaterally, no rales or crackles noted, no wheezes, good air entry Abdomen: distended, no bowel sounds Extremities: Normal to inspection Skin: No rashes noted, no lesions or wounds seen Psych: Euthymic, normal affect Objective Data Vital Signs Vital Signs: Vital Signs - 24 hr 02/25/22 14:33 02/25/22 17:04 02/25/22 19:26 Temperature 97.8 F Pulse Rate 82 91 Respiratory Rate 18 18 Blood Pressure 165/80 H Pulse Oximetry 95 94 95 Oxygen Delivery Nasal Cannula Oxygen Flow Rate 2 02/25/22 19:26 02/25/22 21:42 02/26/22 00:00 Temperature 98.1 F 98.7 F Pulse Rate 86 84 Respiratory Rate 18 18 Blood Pressure 148/71 H 140/76 Pulse Oximetry 95 94 92 Oxygen Delivery Room Air Oxygen Flow Rate 02/25/22 22:13 02/26/22 06:57 02/26/22 09:06 Temperature 98.6 F Pulse Rate 86 Respiratory Rate 16 Blood Pressure 131/75 Pulse Oximetry 93 94 94 Oxygen Delivery Room Air Room Air Oxygen Flow Rate Intake/Output Intake/Output: Intake & Output 02/23/22 02/24/22 02/25/22 02/26/22 23:59 23:59 23:59 23:59 Intake Total 1000 1999 2440 340 Output Total 900 Balance 100 1999 2440 340 Meds/Results Medications: Active Medications Generic Name Dose Route Start Last Admin Trade Name Eliseoq PRN Reason Stop Dose Admin Benztropine Mesylate 0.5 mg 02/22/22 09:00 02/26/22 10:17 Benztropine Mesylate 0.5 Mg Tablet PO 0.5 mg TID [facility] Administration Docusate Sodium 100 mg 02/22/22 09:00 02/26/22 10:17 Docusate Sodium 100 Mg Capsule PO 100 mg BID [facility] Administration Enoxaparin Sodium 40 mg 02/22/22 09:00 02/26/22 08:37 Enoxaparin 40 Mg/0.4 Ml Syringe SUB-Q 40 mg DAILY [facility] Administration Famotidine 40 mg 02/22/22 21:00 02/22/22 20:14 Famotidine 20 Mg Tablet PO Not Given HS [facility] Fenofibrate 48 mg 02/22/22 09:00 02/26/22 10:17 Fenofibrate,Micronized 48 Mg Tablet PO 48 mg QAM [facility] Administration Fish Oil 2 gm 02/22/22 09:00 02/26/22 10:17 [place] 3 Polyunsat Fatty Acids 1 Gm Cap PO 2 gm TID [facility] Administration Folic Acid 1 mg 02/22/22
[2022-02-26] MEDS: ONDANSETRON INJ 4 MG/2 ML VIAL IV PUSH (15:12)
[2022-02-26 16:00] VITALS: BP 140/88; PULSE 82; RESP 2; TEMP 36.8; O2SAT 91
[2022-02-26 19:24] VITALS: BP 138/73; PULSE 87; RESP 18; TEMP 36.4; O2SAT 94
[2022-02-26] MEDS: FAMOTIDINE 20 MG TABLET 40 MG PO (21:55)
[2022-02-27 04:03] VITALS: BP 154/76; PULSE 91; RESP 18; TEMP 36.1; O2SAT 94
[2022-02-27] MEDS: LACTULOSE 20 GM/30 ML UDC PO (08:17)
[2022-02-27] MEDS: TAMSULOSIN HCL 0.4 MG CAPSULE PO (08:18)
[2022-02-27] MEDS: risperiDONE 1 MG TABLET PO (08:18)
[2022-02-27] MEDS: SERTRALINE HCL 25 MG TABLET PO (08:18)
[2022-02-27] MEDS: BENZTROPINE MESYLATE 0.5 MG TABLET PO (08:18)
[2022-02-27] MEDS: DOCUSATE SODIUM 100 MG CAPSULE PO (08:18)
[2022-02-27] MEDS: FENOFIBRATE,MICRONIZED 48 MG TABLET PO (08:18)
[2022-02-27] MEDS: OMEGA 3 POLYUNSAT FATTY ACIDS 1 GM CAP 2 GM PO (08:18)
[2022-02-27] MEDS: PANTOPRAZOLE SODIUM IV 40 MG VIAL IV PUSH (08:18)
[2022-02-27] MEDS: ENOXAPARIN 40 MG/0.4 ML SYRINGE SUB-Q (08:19)
[2022-02-27 09:10] LABS: Basophils Absolute Auto 0.1 K/mm3 (0.0-0.1); Basophils Percent Auto 0.6 % (0.2-1.2); Eosinophils Percent Auto 0.1 % (0-4.4); Hematocrit 41.3 % (42.0-52.0); Immature Granulocyte Absolute 0.54 K/mm3 (0.00-0.031); Immature Granulocyte Percent A 4.1 % (0-0.5); Lymphocytes Percent Auto 15.9 % (18.3-44.2); Mean Corpuscular HGB Conc 31.5 g/dl (32-36); Mean Corpuscular Hemoglobin 27.9 pg (26-34); Mean Corpuscular Volume 88.6 fl (80-100); Mean Platelet Volume 9.7 fl (7.4-10.4); Monocytes Percent Auto 7.7 % (2.6-8.5); Neutrophils Absolute Auto 9.5 K/mm3 (1.3-6.7); Neutrophils Percent Auto 71.6 % (45.5-73.1); Platelet Count Result 328 k/mm3 (150-375); Red Blood Count 4.66 M/mm3 (4.6-6.20); Red Cell Distribution Width 14.1 % (11.5-14.5); White Blood Count 13.2 K/mm3 (4.5-10.0)
[2022-02-27 09:25] LABS: Anion Gap 7 mmol/L (8-16); Blood Urea Nitrogen 15 mg/dL (9-20); Calcium 8.6 mg/dL (8.4-10.2); Carbon Dioxide 25 mmol/L (22-30); Chloride 108 mmol/L (98-107); Estimated CRCL calculation 75 ml/min; Estimated Glomerular Filt Rate > 60; Glucose 179 mg/dL (65-110); Potassium 3.8 mmol/L (3.4-5.0); Sodium 140 mmol/L (137-145)
--- NOTE | 2022-02-27 10:48 | PM.DS ---
DS: Admitting Diagnosis Discharge Date February 27, 2022 Admitting Diagnosis Small-bowel obstruction DS: Discharge Diagnosis Discharge Diagnosis (1) MARCIA (acute kidney injury): Code(s): N17.9 - Acute kidney failure, unspecified Status: Acute Assessment and Plan: Resolved (2) Small bowel obstruction: Code(s): K56.609 - Unspecified intestinal obstruction, unspecified as to partial versus complete obstruction Status: Acute Assessment and Plan: The patient was managed conservatively with NG tube to suction. NG tube has been removed for the 24 hr and patient is tolerating normal diet. Patient can be discharged and follow up with surgery as needed. (3) Schizophrenia: Code(s): F20.9 - Schizophrenia, unspecified Status: Chronic Assessment and Plan: Continue home meds (4) Tourettes disease: Code(s): F95.2 - Tourette's disorder Status: Chronic Assessment and Plan: Continue home meds (5) COPD (chronic obstructive pulmonary disease): Code(s): J44.9 - Chronic obstructive pulmonary disease, unspecified Status: Chronic Assessment and Plan: Chronic and stable. No exacerbation. Continue home meds (6) Tobacco dependence: Code(s): F17.200 - Nicotine dependence, unspecified, uncomplicated Status: Acute (7) Fever: Code(s): R50.9 - Fever, unspecified Status: Acute Assessment and Plan: Workup unrevealing. (8) Hypernatremia: Code(s): E87.0 - Hyperosmolality and hypernatremia Status: Acute Assessment and Plan: Resolved DS: Summary Hospital Course Hospital Course: See discharge planning diagnoses Time Spent with Patient Time attestation: Total time spent providing and/or coordinating discharge services: Exam Narrative: General: No acute distress, alert and oriented per baseline, NG tube in place HEENT: Atraumatic, normocephalic, mucous membranes moist CV: Regular rate and rhythm, S1, S2 Lungs: Clear to auscultation bilaterally, no rales or crackles noted, no wheezes, good air entry Abdomen: distended, no bowel sounds Extremities: Normal to inspection Skin: No rashes noted, no lesions or wounds seen Psych: Euthymic, normal affect DS: Data Data Completed and Pending Labs on day of discharge: Labs from last 24 hours 02/27/22 02/27/22 08:59 08:59 WBC 13.2 H RBC 4.66 Hgb 13.0 L Hct 41.3 L MCV 88.6 MCH 27.9 MCHC 31.5 L RDW 14.1 Plt Count 328 MPV 9.7 Immature Gran % (Auto) 4.1 H Neut % (Auto) 71.6 Lymph % (Auto) 15.9 L Otero % (Auto) 7.7 Eos % (Auto) 0.1 Baso % (Auto) 0.6 Lymph # (Auto) 2.10 Otero # (Auto) 1.0 H Eos # (Auto) 0.0 Baso # (Auto) 0.1 Abs Immat Gran (auto) 0.54 H Absolute Neuts (auto) 9.5 H Absolute Nucleated RBC 0.0 Nucleated RBC % 0.0 Sodium 140 Potassium 3.8 Chloride 108 H Carbon Dioxide 25 Anion Gap 7 L BUN 15 Creatinine 0.90 Estim Creat Clear Calc 75 Estimated GFR > 60 Glucose 179 H Calcium 8.6 Preliminary micro results at discharge 02/22/22 05:20 Blood Culture - Preliminary Blood 02/22/22 05:20 Blood Culture - Preliminary Blood Discharge Plan Discharge Attending physician on discharge: Checo Kelly Consulting providers: Yenifer Araujo Discharging Clinician: Checo Kelly Patient Disposition: SNF Activity: no preference Diet: as tolerated Patient Instructions: How to Stop Smoking (GEN) Stand Alone Forms: General Discharge Information Discharge Medications: Continued benztropine 0.5 mg tablet 0.5 mg PO TID clozapine 100 mg tablet 100 mg PO BID Rx Instructions: Takes at 0800 and 1200 fenofibrate micronized 67 mg capsule 67 mg PO DAILY sertraline 25 mg tablet 25 mg PO BID risperidone 1 mg tablet 1 mg PO BID lactulose 10 gram/15 mL solution 20 g PO BID cl
[2022-02-27 13:25] VITALS: BP 152/90; PULSE 90; RESP 20; TEMP 36.6; O2SAT 94
== END 2022-02-27 15:55 | DRG 389 ==
LOC: ANHED 02-22 01:19 → ANH3MED 02-22 02:20
PROVIDERS: Hospitalist; Nurse Practitioner Family; Admitting Provider Student in an Organized Health Care Education/Training Program; Emergency Provider Emergency Medicine; Visit Provider Chiropractor
DX: K56.609 Unspecified intestinal obstruction, unspecified as to partial versus complete obstruction (principal); E87.0 Hyperosmolality and hypernatremia; N17.9 Acute kidney failure, unspecified; F20.9 Schizophrenia, unspecified; F95.2 Tourette's disorder; J44.9 Chronic obstructive pulmonary disease, unspecified; R50.9 Fever, unspecified; Z20.822 Contact with and (suspected) exposure to COVID-19; F17.210 Nicotine dependence, cigarettes, uncomplicated; E78.5 Hyperlipidemia, unspecified; F41.9 Anxiety disorder, unspecified; F03.90 Unspecified dementia, unspecified severity, without behavioral disturbance, psychotic disturbance, mood disturbance, and anxiety; Z66 Do not resuscitate; R00.0 Tachycardia, unspecified
CPT/HCPCS: 36415; 71045; 74018; 74177; 74250; 80048; 80053; 81001; 83605; 83690; 85025; 87040; 93005; 96361; 96374; 96375; 99285; A9270; C9113; C9803; G0378; J0131; J1650; J2405; J7030; J7070; Q9967; U0003; U0005

== ENCOUNTER 2022-03-31 19:53 | Inpatient (IN) | payer MEDICARE, MEDICAID, SELFPAY ==
[2022-03-31] VITALS (15 sets, daily range): BP systolic 104–119; BP diastolic 71–75; PULSE 102–112; RESP 15–24; TEMP 36.6; O2SAT 95–96
--- NOTE | ~2022-03-31 | CT_ITS ---
EXAMINATION: CT brain wo con DATE: 04/05/2022 14:07 INDICATION: Mental status change. TECHNIQUE: Computed tomography (CT) of the head was performed without intravenous contrast. The mA wa s adjusted according to patient size. Iterative reconstruction technique was employed. The dose-lengt h product was 681.00 mGy-cm. COMPARISON: Head CT 10/12/2020 FINDINGS: There are old infarcts involving the left basal ganglia and anterior limb left internal cap vince. There are scattered areas of low attenuation in the cerebral white matter. There is an old infa rct in left frontal lobe. The ventricles are normal in size. There is mucosal thickening in the paran jeffrey sinuses and dependent fluid in the left maxillary sinus. The mastoid air cells are normal. The o rbits are normal. IMPRESSION: 1. 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 2. Mild nonspecific cerebral white matter disease, which likely represents chronic small vessel ische giuseppe disease. Reviewed, dictated and finalized at location A. IMPRESSION: 1. Old infarcts involving the left basal ganglia, anterior limb left internal c apsule, and left frontal lobe. 2. Mild nonspecific cerebral white matter disease, which likely represents tannery gummer sanjuana small vessel ischemic disease.
--- NOTE | ~2022-03-31 | XR_ITS ---
EXAMINATION: XR abdomen/kub 1V DATE: 04/02/2022 05:26 INDICATION: Small bowel obstruction TECHNIQUE: A supine view of the abdomen on 4 radiographs was obtained. COMPARISON: 04/01/2022 and 03/31/2022 FINDINGS: Nasogastric tube tip in proximal side port in the body of the stomach. Decrease in the extent and deg ree of distention of multiple loops of gas-filled small bowel throughout the abdomen and pelvis consi stent with improving small bowel obstruction. Moderate amount of stool in the distal colon. Persisten t opacity at the left costophrenic angle corresponding to a pericardial fat pad and associated lingul ar atelectasis on prior CT. Heart size is normal. IMPRESSION: 1. Improving small bowel obstruction. Reviewed, dictated and finalized at location A.
--- NOTE | ~2022-03-31 | XR_ITS ---
EXAMINATION: XR abdomen NG/feed tube insert INDICATION: Nasogastric tube placement TECHNIQUE: Portable AP KUB-NG at 1250 hours COMPARISON: 0508 hours FINDINGS: The nasogastric tube is in the stomach. Dilated small bowel loops persist but continue to i mprove. No free intraperitoneal gas is identified. IMPRESSION: 1. Nasogastric tube in the stomach. 2. Improving small bowel obstruction. Reviewed, dictated and finalized at location A.
--- NOTE | ~2022-03-31 | XR_ITS ---
EXAMINATION: XR abdomen NG/feed tube insert DATE: 03/31/2022 22:16 INDICATION: Dizziness and 2 placement. TECHNIQUE: An upright view of the abdomen was obtained. COMPARISON: CT abdomen and pelvis 03/31/2022 FINDINGS: The lower abdomen is excluded. There are multiple dilated loops of small bowel. The nasogas tric tube tip is at the gastroesophageal junction. IMPRESSION: 1. Nasogastric tube tip at the gastroesophageal junction. Advancement 10 cm is recommended. 2. Dilated small bowel, consistent with adynamic ileus versus partial small bowel obstruction. Reviewed, dictated and finalized at location A. IMPRESSION: 1. Nasogastric tube tip at the gastroesophageal junction. Advancement 10 cm is recommended. 2. Dilated small bowel, consistent with adynamic ileus versus partial small bow el obstruction.
--- NOTE | ~2022-03-31 | XR_ITS ---
EXAMINATION: XR abdomen/kub 1V DATE: 04/01/2022 05:30 INDICATION: Small bowel obstruction TECHNIQUE: A supine view of the abdomen on 2 radiographs was obtained. COMPARISON: 03/31/2022 FINDINGS: Advancement of the nasogastric tube now both distal tip in proximal side port in the body of the stom ach. Persistent multiple dilated loops of gas-filled small bowel scattered throughout the abdomen whi ch measure up to 7 cm in maximal diameter. Large amount of stool scattered throughout the distal colo n. IMPRESSION: 1. Nasogastric tube in stomach. 2. Small bowel obstruction. Reviewed, dictated and finalized at location A.
--- NOTE | ~2022-03-31 | XR_ITS ---
EXAMINATION: XR abdomen/kub 1V DATE: 04/04/2022 06:36 INDICATION: Small bowel obstruction. TECHNIQUE: A supine view of the abdomen on 2 radiographs was obtained. COMPARISON: Small bowel series 04/03/2022 FINDINGS: There are dilated loops of small bowel. There is oral contrast in the colon, which is lucille l in caliber. IMPRESSION: 1. Persistently dilated small bowel, consistent with adynamic ileus versus partial small bowel obstru ction. Reviewed, dictated and finalized at location A. IMPRESSION: 1. Persistently dilated small bowel, consistent with adynamic ileus versus part ial small bowel obstruction.
--- NOTE | ~2022-03-31 | XR_ITS ---
EXAMINATION: XR sm bowel follow through DATE: 04/03/2022 11:50 INDICATION: Small bowel obstruction. TECHNIQUE: Oral contrast was administered, and a time course of radiographs of the abdomen was obtain ed. Fluoroscopy of the small bowel was not performed. Fluoroscopy exposure time was 0 minutes. The to zofia number of images was 5. COMPARISON: CT abdomen and pelvis 03/31/2022 FINDINGS: The nasogastric tube tip is in the stomach. There is a diverticulum of the second portion the duodenu m. There are multiple dilated loops of small bowel. Transit time from the stomach to proximal colon w as approximately 1 hour. IMPRESSION: 1. Dilated small bowel with normal transit time to the colon, consistent with adynamic ileus versus p artial small bowel obstruction. Reviewed, dictated and finalized at location A. IMPRESSION: 1. Dilated small bowel with normal transit time to the colon, consistent with a dynamic ileus versus partial small bowel obstruction.
--- NOTE | ~2022-03-31 | XR_ITS ---
EXAMINATION: XR chest 1V portable DATE: 04/04/2022 12:08 INDICATION: Leukocytosis. TECHNIQUE: A single frontal view of the chest was obtained. COMPARISON: Chest single view 02/22/2022, CT abdomen and pelvis 03/31/2022 FINDINGS: There is mild atelectasis in the right perihilar region and lower lung zones. No pleural ef fusion or pneumothorax. The heart size is normal. There are prominent paracardial fat pads. IMPRESSION: 1. Mild atelectasis in the right perihilar region and lower lung zones. Reviewed, dictated and finalized at location A.
--- NOTE | ~2022-03-31 | XR_ITS ---
EXAMINATION: XR abdomen/kub 1V DATE: 04/03/2022 06:00 INDICATION: Small bowel obstruction. TECHNIQUE: A supine view of the abdomen on 2 radiographs was obtained. COMPARISON: CT abdomen and pelvis 03/31/2022 FINDINGS: There are dilated loops of small bowel. The large bowel is normal in caliber. There is a mo derate volume of stool in the colon. The nasogastric tube tip is in the stomach. IMPRESSION: 1. Persistently dilated small bowel, consistent with adynamic ileus versus small bowel obstruction. Reviewed, dictated and finalized at location A. IMPRESSION: 1. Persistently dilated small bowel, consistent with adynamic ileus versus smal l bowel obstruction.
--- NOTE | ~2022-03-31 | CT_ITS ---
EXAMINATION: CTA chest abdomen pelvis DATE: 04/04/2022 15:45 INDICATION: leukocytosis, SBO, diaphoretic . TECHNIQUE: CT angiography of the chest, abdomen, and pelvis was performed with 100 mL Omnipaque-350 i ntravenous contrast in the arterial phase. Automated exposure control and iterative reconstruction te chnique were employed. The dose-length product was 1404.67 mGy-cm. COMPARISON: CT abdomen pelvis 03/31/2022. FINDINGS: Motion limited examination. Thoracic aorta: Mild arch ectasia. Noncalcified plaque including ulcerative plaque along the inferior aspect of the arch. Lung parenchyma and airways: Significant motion artifact in the lungs. Bibasilar scar/atelectasis. Po ssible emphysematous change. Thoracic inlet, axillae and chest wall: No thyroid or soft tissue mass. No axillary lymphadenopathy. Mediastinum: No mass or lymphadenopathy. Hiatal hernia. Heart and pericardium: Normal heart size. No pericardial effusion. Coronary artery calcifications: Absent. Pleura: No effusion or mass. Thoracic bones: No acute osseous finding in the chest. ABDOMEN/PELVIS: Liver: Likely steatosis. Biliary/Gallbladder: Gallbladder is normal. No bile duct dilation. Pancreas: No mass or duct dilation. Spleen: Normal. Adrenals:No mass. Kidneys: Multiple bilateral renal cysts. No suspicious mass, stone or hydronephrosis. GI tract: Contrast fills a majority of the large bowel. Multiple loops of dilated small bowel in the left abdomen, slightly improved since the prior study. Diffusely mildly dilated large bowel, stable. Normal appendix. Mesentery/Peritoneum: No ascites, mass, or free air. Retroperitoneum: No mass. Atherosclerotic abdominal aortic and/or arterial calcifications. 1.7 x 1.1 cm saccular aneurysm off the posterior aspect of the infrarenal abdominal aorta. Pelvis: Marked bladder distention without wall thickening. Soft Tissues: Soft tissues and body wall unremarkable. Abdominopelvic bones: No acute osseous finding in the abdomen/pelvis. IMPRESSION: Motion limited examination. No aortic dissection. Atherosclerotic plaques aorta including ulcerative plaque at the arch. Small saccular aneurysm in the infrarenal abdominal aorta. Slightly improved dila tion of small bowel, without focal transition point. Presumed chronic mild large bowel dilation. Brandon ed bladder distention. Reviewed, dictated and finalized at location K. IMPRESSION: Motion limited examination. No aortic dissection. Atherosclerotic plaques aorta including ulcerative plaque at the arch. Small saccular aneurysm in the infrar enal abdominal aorta. Slightly improved dilation of small bowel, without focal transition point. Presumed chronic mild large bowel dilation. Marked bladder di stention.
--- NOTE | ~2022-03-31 | CT_ITS ---
EXAMINATION: CT abdomen pelvis wo con DATE: 03/31/2022 20:57 INDICATION: Abdominal distention. TECHNIQUE: Computed tomography (CT) of the abdomen and pelvis was performed without intravenous contr ast. Automated exposure control and iterative reconstruction technique were employed. The dose-length product was 1085.39 mGy-cm. COMPARISON: CT abdomen and pelvis 02/21/2022 FINDINGS: The visualized portions of the lung bases demonstrate mild atelectasis and chronic lung dis ease. No pleural effusion. The heart size is normal. No pericardial effusion. There is diffuse hepati c steatosis. The spleen, pancreas, and adrenal glands are normal. There are cysts in the kidneys gabby uring up to 3.4 cm on the right. There is no urolithiasis. There is a left inguinal hernia containing fat. The appendix is normal. There is a large volume of stool in the colon. There are multiple dilat ed loops of small bowel without focal transition point. The distal small bowel is decompressed. There are no pathologically enlarged lymph nodes. There is no free intraperitoneal fluid. 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 There is severe lower lumbar spondylosis. IMPRESSION: 1. Dilated small bowel, consistent with adynamic ileus versus partial small bowel obstruction. 2. Large volume of stool in the colon. Reviewed, dictated and finalized at location A. IMPRESSION: 1. Dilated small bowel, consistent with adynamic ileus versus partial small bow el obstruction. 2. Large volume of stool in the colon.
--- NOTE | ~2022-03-31 | XR_ITS ---
EXAMINATION: XR abdomen NG/feed tube rechec DATE: 03/31/2022 22:31 INDICATION: Nasogastric tube placement. TECHNIQUE: An upright view of the abdomen was obtained. COMPARISON: Abdomen radiograph at 10:14 PM FINDINGS: The lower abdomen is excluded. There are multiple dilated loops of small bowel bowel. The n asogastric tube tip is at the gastroesophageal junction. IMPRESSION: 1. Nasogastric tube tip at the gastroesophageal junction. Advancement 10 cm is recommended. 2. Dilated small bowel, consistent with adynamic ileus versus partial small bowel obstruction. Reviewed, dictated and finalized at location A. IMPRESSION: 1. Nasogastric tube tip at the gastroesophageal junction. Advancement 10 cm is recommended. 2. Dilated small bowel, consistent with adynamic ileus versus partial small bow el obstruction.
--- NOTE | ~2022-03-31 | US_ITS ---
EXAMINATION: US carotid duplex BI DATE: 04/06/2022 08:05 INDICATION: Old left frontal lobe infarct. TECHNIQUE: Grayscale, color Doppler, and pulsed Doppler images of the cervical carotid arteries were obtained. The degree of vessel stenosis is placed in one of the following categories: normal, <50%, 5 0-69%, >=70% but less than near-occlusion, near-occlusion, or total occlusion. Note that percent sten osis relative to normal distal artery lumen diameter is indirectly measured from velocity measurement s as described by Derrick, et al. Radiology 2003; 229:340-346. COMPARISON: None. FINDINGS: RIGHT: The right common carotid artery (CCA) peak systolic velocity (PSV) is 76 cm/s. The right internal car otid artery (ICA) PSV is 74 cm/s. The right ICA end-diastolic velocity (EDV) is 22 cm/s. The right IC A/CCA PSV ratio is 1.0. Grayscale and color Doppler images yield an estimate of <50% diameter reducti on from plaque in the ICA. There is antegrade flow in the right vertebral artery. LEFT: The left CCA PSV is 107 cm/s. The left ICA PSV is 247 cm/s. The left ICA EDV is 70 cm/s. The left ICA /CCA PSV ratio is 2.3. Grayscale and color Doppler images yield an estimate of >=50% diameter reducti on from plaque in the ICA. There is antegrade flow in the left vertebral artery. IMPRESSION: 1. <50% stenosis in the right internal carotid artery. 2. 50-69% stenosis in the left internal carotid artery. Reviewed, dictated and finalized at location A.
--- NOTE | 2022-03-31 20:00 | ED.ABDPAIN ---
HPI - Abdominal Pain General Chief Complaint: Abdominal Pain <Annelise Buitrago PA-C - Last Filed: 04/01/22 01:47> Stated Complaint: ABD DISTENTION, N/V <Annelise Buitrago PA-C - Last Filed: 04/01/22 01:47> Time Seen by Provider: 03/31/22 19:55 <Annelise Buitrago PA-C - Last Filed: 04/01/22 01:47> History of Present Illness HPI narrative: Patient is a 71-year-old male with a history of small bowel obstructions, schizophrenia, here from his assisted living facility for abdominal distention and vomiting. History largely obtained from EMS as patient is A&O x1 at baseline. Notes that he has a history of small bowel obstruction; retirement did not comment how long his abdomen has been distended or how long he has been vomiting for. They are unsure of his last bowel movement. Patient denies any symptoms currently including abdominal pain, does not know that he vomited. <Annelise Buitrago PA-C - Last Filed: 04/01/22 01:47> Related Data Home Medications: Home Medications Medication Instructions Recorded Confirmed clozapine 100 mg tablet 100 mg PO BID 07/16/20 04/01/22 fenofibrate micronized 67 mg 67 mg PO DAILY 07/16/20 04/01/22 capsule lactulose 10 gram/15 mL oral 20 g PO BID 07/16/20 04/01/22 solution risperidone 1 mg tablet 1 mg PO BID 07/16/20 04/01/22 sertraline 25 mg tablet 25 mg PO BID 07/16/20 04/01/22 clozapine 100 mg tablet 300 mg PO HS 07/17/20 04/01/22 docusate sodium 100 mg tablet 100 mg PO BID 07/17/20 04/01/22 folic acid 1 mg tablet 1 mg PO DAILY 07/17/20 04/01/22 omega 6-gnm-nda-fish oil 1,000 mg 2 cap PO TID 07/17/20 04/01/22 (120 mg-180 mg) capsule (Fish Oil) famotidine 40 mg tablet 40 mg PO HS 02/22/22 04/01/22 tamsulosin 0.4 mg capsule 0.4 mg PO BID 02/22/22 04/01/22 acetaminophen 325 mg tablet 650 mg PO Q6H PRN fever or pain 04/01/22 04/01/22 (Tylenol) diphenhydramine HCl 25 mg capsule 25 mg PO TID PRN Rash 04/01/22 04/01/22 (Benadryl) <Annelise Buitrago PA-C - Last Filed: 04/01/22 01:47> Allergies/Adverse Reactions: Allergies Allergy/AdvReac Type Severity Reaction Status Date / Time doxycycline Allergy Intermediate Rash Verified 03/31/22 20:09 <Annelise Buitrago PA-C - Last Filed: 04/01/22 01:47> Review of Systems Review of Systems: ROS unobtainable: Yes unobtainable due to medical condition <Annelise Buitrago PA-C - Last Filed: 04/01/22 01:47> [facility] Past Medical History Medical History: Medical History Anxiety Dementia Dysphagia Hyperlipidemia Schizophrenia Tourettes disease <Annelise Buitrago PA-C - Last Filed: 04/01/22 01:47> Surgical History Surgical History: Surgical History No pertinent past surgical history <Annelise Buitrago PA-C - Last Filed: 04/01/22 01:47> Family History Family History: Family History Father Coronary artery disease CHF (congestive heart failure) Mother Coronary artery disease Sibling Coronary artery disease Sibling Multiple sclerosis <Annelise Buitrago PA-C - Last Filed: 04/01/22 01:47> Social History Social History: Social History Social History: Mr. Youssef is a long term resident at [facility]. He has been there for 20 years. His parents are and he has two siblings. He is a current smoker and smokes approximately 1-2 packs per week. He does not drink alcohol or use illicit substances. His sister, Jeimma Dickerson, is his POA. 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 Years smoked: 50 Smoking status: Light tobacco smoker Second hand tobacco smoke exposure: Yes Alcohol intake: never Substance use: never Gender identity (if verbalized by the patient): Male Spiritual care concerns: No <E
[2022-03-31] MEDS: SODIUM CHLORIDE 0.9% IV 1,000 ML 999 ML IV CONT ×2 (20:15→22:16)
[2022-03-31 20:22] LABS: Basophils Percent Auto 0.4 % (0.2-1.2); Eosinophils Absolute Auto 0.1 K/mm3 (0-0.3); Eosinophils Percent Auto 1.4 % (0-4.4); Hematocrit 44.2 % (42.0-52.0); Immature Granulocyte Absolute 0.03 K/mm3 (0.00-0.031); Immature Granulocyte Percent A 0.3 % (0-0.5); Lymphocytes Absolute Auto 0.84 K/mm3 (0.9-3.2); Lymphocytes Percent Auto 9.1 % (18.3-44.2); Mean Corpuscular HGB Conc 31.7 g/dl (32-36); Mean Corpuscular Hemoglobin 28.2 pg (26-34); Mean Corpuscular Volume 88.9 fl (80-100); Mean Platelet Volume 9.4 fl (7.4-10.4); Monocytes Absolute Auto 0.9 K/mm3 (0.1-0.6); Monocytes Percent Auto 9.2 % (2.6-8.5); Neutrophils Absolute Auto 7.3 K/mm3 (1.3-6.7); Neutrophils Percent Auto 79.6 % (45.5-73.1); Platelet Count Result 358 k/mm3 (150-375); Red Blood Count 4.97 M/mm3 (4.6-6.20); Red Cell Distribution Width 16.1 % (11.5-14.5); White Blood Count 9.2 K/mm3 (4.5-10.0)
[2022-03-31 20:33] LABS: Alanine Aminotransferase 33 U/L (6-50); Albumin Level 4.3 g/dL (3.5-5.1); Alkaline Phosphatase 87 U/L (38-126); Anion Gap 16 mmol/L (8-16); Aspartate Amino Transferase 22 U/L (17-59); Bilirubin,Total 0.5 mg/dL (0.2-1.3); Blood Urea Nitrogen 35 mg/dL (9-20); Calcium 10.1 mg/dL (8.4-10.2); Carbon Dioxide 24 mmol/L (22-30); Chloride 99 mmol/L (98-107); Estimated Glomerular Filt Rate 23; Glucose 191 mg/dL (65-110); Potassium 4.2 mmol/L (3.4-5.0); Sodium 139 mmol/L (137-145)
[2022-03-31 22:11] LABS: SARS-CoV-2 RNA PCR Negative
--- NOTE | 2022-03-31 22:19 | PC.NURSE ---
NG placed with STEPHANIE Manuel. Tolerated well, draining gastric contents. Currently 300 cc of brown drainage. bedside xray completed.
--- NOTE | 2022-03-31 22:47 | PC.NURSE ---
Per original xray and order from MARY Castelan, advance NG by 10 cm Went to advance and tube had been displaced to the 40 cm syl, sticker fallen off. Advanced to 65Annelise aware and ordering additional placement xray.
[2022-03-31 23:20] LABS: Reflex Lactic Acid Yes or No Add Lactic
[2022-03-31 23:20] LABS: Appearance Urine Clear (Clear); Bilirubin Urine 3+ (Negative); Blood Urine Negative (Negative); Color Urine Yellow (Yellow); Glucose Urine UA Negative (Negative); Ketones Urine 1+ mg/dL (Negative); Leukocyte Esterase Ur Negative LEU/UL (Negative); Nitrate Urine Negative (Negative); Protein Urine Trace mg/dL (Negative); Specific Grav Ur >= 1.030 (1.001-1.035); Urobilinogen Urine 0.2 mg/dL (<2.0)
[2022-03-31 23:29] LABS: Mucus Urine Rare /lpf; Squamous Epithelial Cell Urine Rare /hpf (Few); WBC Urine 0-3 /hpf
[2022-03-31 23:30] LABS: Add Urine Microscopic? YES
[2022-03-31] MEDS: SODIUM CHLORIDE 0.9% IV 1,000 ML 125 ML IV CONT (23:33)
[2022-04-01] VITALS (7 sets, daily range): BP systolic 114–142; BP diastolic 72–89; PULSE 95–102; RESP 14–20; TEMP 36.2–36.9; O2SAT 93–97
[2022-04-01 00:01] LABS: Lactic Acid 2.7 mmol/L (0.7-2.0)
--- NOTE | 2022-04-01 00:15 | PC.NURSE ---
IVF infusing at 150 ml/h enroute.
--- NOTE | 2022-04-01 01:03 | PC.NURSE ---
This patient, John Youssef Jr., was admitted to [facility] Room 314-01. Patient/family oriented to hospital policies and general routines including ID bracelet, bed and alarms, visiting hours, pain management, procedures, bathroom and other care routines, personal items, smoking policy, room service/diet, and visiting hours. Information on how to activate the Rapid Response Team has been discussed. Patient/Family are encouraged to report perceived risks to care and to ask questions if they do not understand what they are told or what they should do.
--- NOTE | 2022-04-01 03:52 | ECG_ITS ---
Measurements Intervals [place] Rate: 94 P: 68 UT: 175 QRS: -54 QRSD: 110 T: 68 QT: 281 QTc: 353 Interpretive Statements SINUS RHYTHM INFERIOR MYOCARDIAL INFARCTION , PROBABLY OLD [40+ ms Q WAVE AND/OR ST/T ABNORMALITY IN II/aVF] ABNORMAL ECG COMPARED TO ECG 02/22/2022 09:14:53 NO SIGNIFICANT CHANGES Electronically Signed On 04-01-2022 13:56:12 CDT by Benedict Jordan M.D.
--- NOTE | 2022-04-01 03:58 | PM.IMHP ---
H&P: HPI History of Present Illness Date/Time: 04/01/22 03:58 Chief Complaint: Nausea/vomiting, abdominal distention Narrative: Greater than 30 minutes spent reviewing chart, evaluating, treating patient. Anticipate less than 48 hour admission, will admit under observation. 71-year-old male past medical history of dementia, anxiety, schizophrenia, COPD, HLD. History of recurrent SBO most recently 02/2022. Patient is A&O x1 at baseline, unable to provide history. History obtained from chart. Presented from [facility] with abdominal distension and intractable nausea/vomiting. Labs remarkable for BUN/CR 35/2.8 (baseline creatinine around 1), initial lactic 3. CT abdomen/pelvis demonstrates dilated small bowel concerning for adynamic ileus versus SBO, large stool in colon. Patient was given 2 L normal saline bolus, Zofran and started on normal saline 125 cc/HR. A general surgery consulted, NG tube placed. Review of Systems Review of Systems: Unable to obtain due to dementia [facility] Past Medical History Medical History Anxiety Dementia Dysphagia Hyperlipidemia Schizophrenia Tourettes disease Surgical History Surgical History No pertinent past surgical history Family History Family History Father Coronary artery disease CHF (congestive heart failure) Mother Coronary artery disease Sibling Coronary artery disease Sibling Multiple sclerosis Social History Social History Social History: Mr. Youssef is a fdc resident at [facility]. He has been there for 20 years. His parents are and he has two siblings. He is a current smoker and smokes approximately 1-2 packs per week. He does not drink alcohol or use illicit substances. His sister, Jemima Dickerson, is his POA. 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 Years smoked: 50 Smoking status: Light tobacco smoker Second hand tobacco smoke exposure: Yes Alcohol intake: never Substance use: never Gender identity (if verbalized by the patient): Male Spiritual care concerns: No Meds Home Medications and Allergies Home Medications Medication Instructions Recorded Confirmed Type clozapine 100 mg tablet 100 mg PO BID 07/16/20 04/01/22 History fenofibrate micronized 67 mg 67 mg PO DAILY 07/16/20 04/01/22 History capsule lactulose 10 gram/15 mL oral 20 g PO BID 07/16/20 04/01/22 History solution risperidone 1 mg tablet 1 mg PO BID 07/16/20 04/01/22 History sertraline 25 mg tablet 25 mg PO BID 07/16/20 04/01/22 History clozapine 100 mg tablet 300 mg PO HS 07/17/20 04/01/22 History docusate sodium 100 mg tablet 100 mg PO BID 07/17/20 04/01/22 History folic acid 1 mg tablet 1 mg PO DAILY 07/17/20 04/01/22 History omega 2-skv-yic-fish oil 1,000 mg 2 cap PO TID 07/17/20 04/01/22 History (120 mg-180 mg) capsule (Fish Oil) famotidine 40 mg tablet 40 mg PO HS 02/22/22 04/01/22 History tamsulosin 0.4 mg capsule 0.4 mg PO BID 02/22/22 04/01/22 History acetaminophen 325 mg tablet 650 mg PO Q6H PRN fever or pain 04/01/22 04/01/22 History (Tylenol) diphenhydramine HCl 25 mg capsule 25 mg PO TID PRN Rash 04/01/22 04/01/22 History (Benadryl) Allergies Allergy/AdvReac Type Severity Reaction Status Date / Time doxycycline Allergy Intermediate Rash Verified 03/31/22 20:09 Vital Signs Vital Signs - 24 hr 03/31/22 20:04 03/31/22 20:03 03/31/22 20:04 Temperature 97.8 F Pulse Rate 111 H 112 H 112 H Respiratory Rate 19 21 H 24 H Blood Pressure 104/71 104/71 Pulse Oximetry 95 Oxygen Delivery Room Air 03/31/22 20:15 03/31/22 20:42 03/31/22 20:57 Temperature Pulse Rate 111 H 107 H 106 H Respiratory Rate 21 H 18 Blood Pressure Pulse Oximetry Oxygen Delivery 03/31/22 21:00 03/31/22
[2022-04-01 06:54] LABS: Hematocrit 40.3 % (42.0-52.0); Hemoglobin 12.5 g/dL (14.0-18.0); Mean Corpuscular Hemoglobin 27.8 pg (26-34); Mean Corpuscular Volume 89.8 fl (80-100); Mean Platelet Volume 9.6 fl (7.4-10.4); Platelet Count Result 323 k/mm3 (150-375); Red Blood Count 4.49 M/mm3 (4.6-6.20); Red Cell Distribution Width 16.1 % (11.5-14.5); White Blood Count 4.7 K/mm3 (4.5-10.0)
[2022-04-01 07:11] LABS: Anion Gap 12 mmol/L (8-16); Blood Urea Nitrogen 36 mg/dL (9-20); Calcium 8.5 mg/dL (8.4-10.2); Carbon Dioxide 26 mmol/L (22-30); Chloride 103 mmol/L (98-107); Estimated Glomerular Filt Rate 43; Glucose 162 mg/dL (65-110); Potassium 3.8 mmol/L (3.4-5.0); Sodium 141 mmol/L (137-145)
[2022-04-01 07:13] LABS: Lactic Acid Reflex 1.8 mmol/L (0.7-2.0)
[2022-04-01 07:56] LABS: Band Neutrophils Percent 34 % (0-6); Lymphocytes Absolute Manual 1.55 K/mm3 (1.1-4.5); Metamyelocytes Percent 3 %; Monocytes Absolute Manual 0.61 K/mm3 (0.1-0.90); Monocytes Percent Manual 13 % (3-9); Neutrophils Absolute Manual 2.39 K/mm3 (1.3-6.7); Neutrophils Percent Manual 17 % (46-73); Total Cells Counted 100
[2022-04-01 07:57] LABS: Atypical Lymphocytes Present; Platelet Estimate Adequate (Adequate)
[2022-04-01] MEDS: HEPARIN SODIUM 5,000 UNITS/ML VIAL 5000 UNITS SUB-Q ×2 (09:11→21:22)
[2022-04-01] MEDS: SODIUM CHLORIDE 0.9% IV 1,000 ML 125 ML IV CONT ×2 (09:11→18:13)
--- NOTE | 2022-04-01 10:45 | PM.IMPN ---
Progress Note: A&P Assessment and Plan (1) Small bowel obstruction: Code(s): K56.609 - Unspecified intestinal obstruction, unspecified as to partial versus complete obstruction Status: Acute Assessment and Plan: Abdominal CT shows dilated small bowel consistent with adynamic ileus versus partial small-bowel obstruction, large volume stool in the colon Abdominal x-ray shows small bowel obstruction from 04/01/2022 NG tube placed, dark brown greenish drainage NPO status General surgery consulted thank for help NPO for now Continue IV fluids Zofran on board Trend KUB (2) MARCIA (acute kidney injury): Code(s): N17.9 - Acute kidney failure, unspecified Status: Acute Assessment and Plan: Current BUN and creatinine 36/1.60 Avoid nephrotoxic medications Baseline appears to be 0.9-1.2 Trend labs Probably related to dehydration IV fluids on board Adjust therapy as indicated Get urine studies (3) Schizophrenia: Code(s): F20.9 - Schizophrenia, unspecified Status: Chronic Assessment and Plan: Continue home medications Trend mood Adjust therapy as indicated Seems to be a stable at this time (4) COPD (chronic obstructive pulmonary disease): Code(s): J44.9 - Chronic obstructive pulmonary disease, unspecified Status: Chronic Assessment and Plan: No acute exacerbation at this time Continue home medications No need for oxygen Time Spent With Patient Time with patient: Greater than 35 minutes Subjective Date/time seen: 04/01/22 10:45 Interval history: 04/01/22 1045 Patient was lying in bed. Patient seems to be very anxious however states that he is doing okay. He denies any pain, chest pain, shortness of breath, nausea, vomiting. He did state that he was constipated. His abdomen is very distended however is soft. He does have bowel sounds in all 4 quadrants. NG tube is present draining a dark brown greenish fluid. Patient does look tired and states that he is tired however denies any weakness or fatigue at this time. 04/01/22? 03:58 71-year-old male past medical history of dementia, anxiety, schizophrenia, COPD, HLD.? History of recurrent SBO most recently 02/2022.? Patient is A&O x1 at baseline, unable to provide history.? History obtained from chart.? Presented from detention with abdominal distension and intractable nausea/vomiting.? Labs remarkable for BUN/CR 35/2.8 (baseline creatinine around 1), initial lactic 3.? CT abdomen/pelvis demonstrates dilated small bowel concerning for adynamic ileus versus SBO, large stool in colon.? Patient was given 2 L normal saline bolus, Zofran and started on normal saline 125 cc/HR.? A general surgery consulted, NG tube placed. Review of Systems Review of Systems: All systems reviewed & are unremarkable except as noted in HPI and below Exam Const: General: cooperative, no acute distress, well developed, alert, awake, in distress, ill appearing and tired appearing Nutritional Appearance: well nourished Orientation/consciousness: patient oriented x3 Limitations: no limitations HENMT: Head: normal to inspection Ears: hearing grossly normal bilaterally General nose exam: Normal external nose present Mouth: Yes Normal oral and palatal mucosa present, Yes lip normal and Yes tongue normal Teeth and gingiva: abnormal tooth and associated gingiva and poor dentition Eyes: General: appearance normal, both eyes and all related structures Neck: Neck: normal visual inspection, full ROM, trachea midline and supple Chest: Chest palpation & inspection: normal inspection of the chest Resp: Effort & Inspection: normal respiratory effort and able to speak in complete sentences Auscultation: clear to auscultation bilaterally Cardio: Jugular venous distension: no JVD Rate: regular rate Rhythm: regular rhythm Heart sounds: S1 normal heart sound present and S2 normal he
--- NOTE | 2022-04-01 14:02 | PM.CNGS ---
Assessment and Plan Assessment and plan (1) Small bowel obstruction: Code(s): K56.609 - Unspecified intestinal obstruction, unspecified as to partial versus complete obstruction Status: Acute Assessment and Plan: Severe small-bowel dilatation with evidence of distal small bowel obstruction. This is the 3rd time this has happened since July of 2020. It last occurred in February of this year. Continue NG suction, daily exam, daily labs and daily KUB. Will give soapsuds enema twice today. It would not surprise me that the constipation is actually the cause of the small bowel issues. (2) Constipation: Qualifiers: Constipation type: unspecified constipation type Qualified Code(s): K59.00 - Constipation, unspecified Code(s): K59.00 - Constipation, unspecified Status: Chronic Assessment and Plan: Please see above. Severe constipation noted on all 3 admissions for this in the last 18 months. (3) Schizophrenia: Code(s): F20.9 - Schizophrenia, unspecified Status: Chronic Assessment and Plan: Continue home meds. Patient currently not answering any questions. History of Present Illness Consult details Consult date: 04/01/22 Requesting physician: Annelise Buitrago PA-C Narrative: Patient is a 71-year-old man with history of mental illness. He resides in the assisted living or sheltered care environment. He came to the emergency room last night with communication that described vomiting and abdominal distension. Patient was really unable to relate any history at all. I have seen this patient on 2 different occasions previously. The 1st when is in July of 2020 when he came to the emergency room with similar complaints. At that time he was diagnosed with a small-bowel obstruction but had a tremendous amount of retained fecal material in the colon. This resolved with nonsurgical therapies. The patient returned again in February of this year with again tremendous amount of fecal material in the colon and evidence of a small-bowel obstruction. On this occasion, he was given some enemas and eventually this resolved with NG suction and IV fluids. In the emergency room last night, it was described the patient was very distended. His CT scan again showed severe constipation as well as evidence of a small-bowel obstruction. He had a nasogastric tube placed which, by the time I saw him this morning, had already drain 1600 cc. He was still very distended and essentially nonverbal. He has no history of previous abdominal surgery. He is seen now in consultation with what appears to be the 3rd episode of severe constipation with possible small bowel obstruction by imaging. Review of Systems Review of Systems: ROS unobtainable: Yes unobtainable due to medical condition PMFSH Past Medical History Medical History Anxiety Dementia Dysphagia Hyperlipidemia Schizophrenia Tourettes disease Surgical History Surgical History No pertinent past surgical history Family History Family History Father Coronary artery disease CHF (congestive heart failure) Mother Coronary artery disease Sibling Coronary artery disease Sibling Multiple sclerosis Social History Social History Social History: Mr. Youssef is a nursing home resident at [facility]. He has been there for 20 years. His parents are and he has two siblings. He is a current smoker and smokes approximately 1-2 packs per week. He does not drink alcohol or use illicit substances. His sister, Jemima Dickerson, is his POA. 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 Years smoked: 50 Smoking status: Light tobacco smoker Second hand tobacco smoke exposure: Yes Alcohol intake: never Substance use: ne
[2022-04-01] MEDS: risperiDONE 1 MG TABLET PO ×2 (14:38→21:23)
[2022-04-01] MEDS: SERTRALINE HCL 25 MG TABLET PO ×2 (14:38→21:23)
[2022-04-01 23:59] LABS: Urea Random Urine 339 MG/DL
[2022-04-02] VITALS (7 sets, daily range): BP systolic 140–167; BP diastolic 55–101; PULSE 91–96; RESP 16–20; TEMP 35.9–37.1; O2SAT 92–98
[2022-04-02 00:22] LABS: Creatinine Urine 302.1 mg/dL
[2022-04-02 00:26] LABS: Sodium Urine Random 19 meq/L
[2022-04-02] MEDS: SODIUM CHLORIDE 0.9% IV 1,000 ML 125 ML IV CONT (01:03)
[2022-04-02 07:29] LABS: Mean Corpuscular HGB Conc 30.8 g/dl (32-36); Mean Corpuscular Hemoglobin 28.4 pg (26-34); Mean Corpuscular Volume 92.2 fl (80-100); Mean Platelet Volume 9.6 fl (7.4-10.4); Platelet Count Result 290 k/mm3 (150-375); Red Blood Count 4.23 M/mm3 (4.6-6.20); Red Cell Distribution Width 15.9 % (11.5-14.5); White Blood Count 5.7 K/mm3 (4.5-10.0)
[2022-04-02 07:58] LABS: Alanine Aminotransferase 11 U/L (6-50); Albumin Level 3.3 g/dL (3.5-5.1); Alkaline Phosphatase 73 U/L (38-126); Anion Gap 6 mmol/L (8-16); Aspartate Amino Transferase 15 U/L (17-59); Bilirubin,Total 0.3 mg/dL (0.2-1.3); Blood Urea Nitrogen 20 mg/dL (9-20); Calcium 8.1 mg/dL (8.4-10.2); Carbon Dioxide 29 mmol/L (22-30); Chloride 108 mmol/L (98-107); Estimated Glomerular Filt Rate > 60; Glucose 123 mg/dL (65-110); Potassium 3.7 mmol/L (3.4-5.0); Sodium 143 mmol/L (137-145)
[2022-04-02] MEDS: risperiDONE 1 MG TABLET PO ×2 (08:57→20:08)
[2022-04-02] MEDS: HEPARIN SODIUM 5,000 UNITS/ML VIAL 5000 UNITS SUB-Q (08:57)
[2022-04-02] MEDS: TAMSULOSIN HCL 0.4 MG CAPSULE PO ×2 (08:57→16:53)
[2022-04-02] MEDS: SERTRALINE HCL 25 MG TABLET PO ×2 (08:57→20:08)
--- NOTE | 2022-04-02 11:45 | PM.IMPN ---
Progress Note: A&P Assessment and Plan (1) Small bowel obstruction: Code(s): K56.609 - Unspecified intestinal obstruction, unspecified as to partial versus complete obstruction Status: Acute Assessment and Plan: Abdominal CT shows dilated small bowel consistent with adynamic ileus versus partial small-bowel obstruction, large volume stool in the colon Abdominal x-ray shows inproving small bowel obstruction from 04/02/2022 NG tube placed, dark brown greenish drainage General surgery consulted and managing NPO for now Continue IV fluids Zofran on board Trend KUB (2) MARCIA (acute kidney injury): Code(s): N17.9 - Acute kidney failure, unspecified Status: Acute Assessment and Plan: Current BUN and creatinine 20/0.9 Avoid nephrotoxic medications Baseline appears to be 0.9-1.2 Trend labs Probably related to dehydration IV fluids on board Adjust therapy as indicated Urine Studies sodium 19, random urea 339, Creatinine 302.1 FENa score 0.0 (3) Schizophrenia: Code(s): F20.9 - Schizophrenia, unspecified Status: Chronic Assessment and Plan: Continue home medications Trend mood Adjust therapy as indicated Seems to be a stable at this time (4) COPD (chronic obstructive pulmonary disease): Code(s): J44.9 - Chronic obstructive pulmonary disease, unspecified Status: Chronic Assessment and Plan: No acute exacerbation at this time Continue home medications No need for oxygen Time Spent With Patient Time with patient: Greater than 35 minutes Subjective Date/time seen: 04/02/22 11:45 Interval history: 04/02/22 1145 Patient seems to be doing ok today. He denies any nausea or vomiting, however did state that he is having some pain. he also stated that he is hearing voices. He does seem to be controlled, and is not really active with responding to the voices. He denies any chest pain, shortness of breath, weakness or fatigue. 04/01/22 1045 Patient was lying in bed. Patient seems to be very anxious however states that he is doing okay. He denies any pain, chest pain, shortness of breath, nausea, vomiting. He did state that he was constipated. His abdomen is very distended however is soft. He does have bowel sounds in all 4 quadrants. NG tube is present draining a dark brown greenish fluid. Patient does look tired and states that he is tired however denies any weakness or fatigue at this time. 04/01/22? 03:58 71-year-old male past medical history of dementia, anxiety, schizophrenia, COPD, HLD.? History of recurrent SBO most recently 02/2022.? Patient is A&O x1 at baseline, unable to provide history.? History obtained from chart.? Presented from residential with abdominal distension and intractable nausea/vomiting.? Labs remarkable for BUN/CR 35/2.8 (baseline creatinine around 1), initial lactic 3.? CT abdomen/pelvis demonstrates dilated small bowel concerning for adynamic ileus versus SBO, large stool in colon.? Patient was given 2 L normal saline bolus, Zofran and started on normal saline 125 cc/HR.? A general surgery consulted, NG tube placed. Review of Systems Review of Systems: All systems reviewed & are unremarkable except as noted in HPI and below Exam Const: General: cooperative, comfortable, no acute distress, well developed, alert, awake, in distress, ill appearing and tired appearing Nutritional Appearance: well nourished Orientation/consciousness: patient oriented x3 Limitations: no limitations HENMT: Head: normal to inspection Ears: hearing grossly normal bilaterally General nose exam: Normal external nose present Mouth: Yes Normal oral and palatal mucosa present, Yes lip normal, Yes tongue normal and Yes dry mucous membranes Teeth and gingiva: abnormal tooth and associated gingiva and poor dentition Eyes: General: appearance normal, both eyes and all related structures
--- NOTE | 2022-04-02 12:05 | PC.NURSE ---
at 1050 this am pt received soap suds enema. he tolerated well. 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 pt had a massive bowel movement in bed with loose stool and also hardened chunks. pt pulled out NG tube trying to get up to use the restroom. After massive bowel movement in bed, pt had a massive amount of stool in the toilet. Called to ask if I should reinsert NG tube and he requested that we did so. Will place NG tube now and will document.
--- NOTE | 2022-04-02 16:01 | PM.PNGS ---
Progress Note: A&P Assessment and Plan (1) Small bowel obstruction: Code(s): K56.609 - Unspecified intestinal obstruction, unspecified as to partial versus complete obstruction Status: Acute Assessment and Plan: improving. Large BM after Soapsuds enema today. He had 2 enemas yesterday as well. Abdomen is now soft not firm. It is still distended. Bowel is dilated on plain films but not to the extent it was. Continue NG suction tonight. Will try Gastrografin upper GI small bowel follow-through tomorrow. I a.m. suspicious that his small-bowel obstruction appearance is actually due to constipation. (2) Constipation: Qualifiers: Constipation type: unspecified constipation type Qualified Code(s): K59.00 - Constipation, unspecified Code(s): K59.00 - Constipation, unspecified Status: Chronic Assessment and Plan: Improving after soap suds enemas. See above. (3) Schizophrenia: Code(s): F20.9 - Schizophrenia, unspecified Status: Chronic Assessment and Plan: Still receiving antipsychotic medications while NPO. Subjective Subjective Date/Time Seen: 04/02/22 16:01 Patient reports: bowel movement ( very large BM today after soap suds enema.), afebrile and other (Trying to talk today but words are not intelligible to me) Review of Systems Review of Systems: ROS unobtainable: Yes unobtainable due to medical condition Exam Const: General: comfortable, no acute distress, alert and awake Limitations: behavioral limitations ( Mental illness) GI: Inspection: distended, no scars and no visible herniation GI Palp: Yes Soft to palpation and No Tenderness to palpation present (GI) Percussion: Yes tympanic to percussion Auscultation: Hypoactive bowel sounds present Objective Data Vital Signs Vital Signs: Vital Signs - 24 hr 04/01/22 20:00 04/02/22 00:00 04/02/22 07:31 Temperature 36.2 C L 36.4 C 36.6 C Pulse Rate 95 95 92 Respiratory Rate 20 18 16 Blood Pressure 114/89 142/101 H 140/55 L Pulse Oximetry 93 92 93 Oxygen Delivery 04/02/22 08:17 04/02/22 08:00 04/02/22 12:00 Temperature 36.5 C 35.9 C L Pulse Rate 91 96 Respiratory Rate 20 20 Blood Pressure 143/63 H 160/87 H Pulse Oximetry 93 97 Oxygen Delivery Room Air 04/02/22 15:52 Temperature 36.3 C L Pulse Rate 96 Respiratory Rate 20 Blood Pressure 167/75 H Pulse Oximetry 98 Oxygen Delivery Intake/Output Intake/Output: Intake & Output 03/30/22 03/31/22 04/01/22 04/02/22 23:59 23:59 23:59 23:59 Intake Total 1999 1999 999 Output Total 700 1400 600 Balance 1300 600 400 Meds/Results Medications: Active Medications Generic Name Dose Route Start Last Admin Trade Name Freq PRN Reason Stop Dose Admin Enoxaparin Sodium 30 mg 04/02/22 21:00 Enoxaparin 30 Mg/0.3 Ml Syringe SUB-Q Q12HR KEZIA Sodium Chloride 1,000 mls @ 125 mls/hr 03/31/22 22:00 04/02/22 01:03 Normal Saline Iv IV CONT 125 mls/hr .Q8H KEZIA Administration Miscellaneous Information 0 each 04/01/22 00:01 Clozapine Non Formulary. Recommend Use Home Med. XX 05/01/22 00:00 CLARIFY KEZIA Non-Formulary Medication 300 mg 04/01/22 21:00 Clozapine PO 05/01/22 20:59 HS KEZIA Non-Formulary Medication 100 mg 04/01/22 09:00 Clozapine PO 05/01/22 08:59 BID KEZIA Ondansetron HCl 4 mg 03/31/22 21:57 Ondansetron Inj 4 Mg/2 Ml Vial IV PUSH Q4H PRN Nausea Ondansetron HCl 4 mg 04/01/22 03:49 Ondansetron Inj 4 Mg/2 Ml Vial IV PUSH Q6H PRN Nausea And Vomiting Risperidone 1 mg 04/01/22 09:00 04/02/22 08:57 Risperidone 1 Mg Tablet PO 1 mg Q12HR KEZIA Administration Sertraline HCl 25 mg 04/01/22 09:00 04/02/22 08:57 Sertraline Hcl 25 Mg Tablet PO 25 mg Q12HR KEZIA Administration Tamsulosin HCl 0.4 mg 04/01/22 09:00 04/02/22 08:57 Tamsulosin Hcl 0.4 Mg Capsule PO 0.4 mg BID KEZIA Administration Rad
[2022-04-02] MEDS: ENOXAPARIN 30 MG/0.3 ML SYRINGE SUB-Q (20:11)
[2022-04-03 04:00] VITALS: BP 174/83; PULSE 96; RESP 17; TEMP 37.1; O2SAT 93
[2022-04-03 06:16] LABS: Hematocrit 39.5 % (42.0-52.0); Hemoglobin 12.3 g/dL (14.0-18.0); Mean Corpuscular HGB Conc 31.1 g/dl (32-36); Mean Corpuscular Hemoglobin 28.1 pg (26-34); Mean Corpuscular Volume 90.4 fl (80-100); Mean Platelet Volume 9.5 fl (7.4-10.4); Platelet Count Result 329 k/mm3 (150-375); Red Blood Count 4.37 M/mm3 (4.6-6.20); Red Cell Distribution Width 15.2 % (11.5-14.5)
[2022-04-03 06:32] LABS: Anion Gap 12 mmol/L (8-16); Blood Urea Nitrogen 12 mg/dL (9-20); Calcium 8.6 mg/dL (8.4-10.2); Carbon Dioxide 25 mmol/L (22-30); Chloride 106 mmol/L (98-107); Estimated Glomerular Filt Rate > 60; Glucose 89 mg/dL (65-110); Magnesium 1.9 mg/dL (1.6-2.3); Potassium 3.5 mmol/L (3.4-5.0); Sodium 143 mmol/L (137-145)
[2022-04-03 07:54] VITALS: BP 171/88; PULSE 96; RESP 20; TEMP 36.2; O2SAT 95
[2022-04-03] MEDS: TAMSULOSIN HCL 0.4 MG CAPSULE PO ×2 (08:54→16:41)
[2022-04-03] MEDS: risperiDONE 1 MG TABLET PO ×2 (08:55→21:23)
[2022-04-03] MEDS: SERTRALINE HCL 25 MG TABLET PO ×2 (08:55→21:23)
[2022-04-03] MEDS: ENOXAPARIN 30 MG/0.3 ML SYRINGE SUB-Q ×2 (08:55→21:23)
[2022-04-03 12:00] VITALS: BP 168/96; PULSE 102; RESP 20; TEMP 36.6; O2SAT 95
--- NOTE | 2022-04-03 13:06 | PM.IMPN ---
Progress Note: A&P Assessment and Plan (1) Small bowel obstruction: Code(s): K56.609 - Unspecified intestinal obstruction, unspecified as to partial versus complete obstruction Status: Acute Assessment and Plan: Abdominal CT shows dilated small bowel consistent with adynamic ileus versus partial small-bowel obstruction, large volume stool in the colon Abdominal x-ray shows inproving small bowel obstruction from 04/02/2022 Small bowel follow through shows adqeuate time to get to the colon NG tube placed, dark brown greenish drainage General surgery consulted and managing NPO for now Continue IV fluids Zofran on board Trend KUB (2) MARCIA (acute kidney injury): Code(s): N17.9 - Acute kidney failure, unspecified Status: Acute Assessment and Plan: Current BUN and creatinine 12/0.8 Avoid nephrotoxic medications Baseline appears to be 0.9-1.2 Trend labs Probably related to dehydration IV fluids on board Adjust therapy as indicated Urine Studies sodium 19, random urea 339, Creatinine 302.1 FENa score 0.0 (3) Schizophrenia: Code(s): F20.9 - Schizophrenia, unspecified Status: Chronic Assessment and Plan: Continue home medications Trend mood Adjust therapy as indicated Seems to be a stable at this time (4) COPD (chronic obstructive pulmonary disease): Code(s): J44.9 - Chronic obstructive pulmonary disease, unspecified Status: Chronic Assessment and Plan: No acute exacerbation at this time Continue home medications No need for oxygen Time Spent With Patient Time with patient: Greater than 35 minutes Subjective Date/time seen: 04/03/22 13:06 Interval history: 04/03/22 1300 Patient is doing okay today. Patient still denies any nausea or vomiting. He looks comfortable at this time. Pain is dissipating. 04/02/22 1145 Patient seems to be doing ok today. He denies any nausea or vomiting, however did state that he is having some pain. he also stated that he is hearing voices. He does seem to be controlled, and is not really active with responding to the voices. He denies any chest pain, shortness of breath, weakness or fatigue. 04/01/22 1045 Patient was lying in bed. Patient seems to be very anxious however states that he is doing okay. He denies any pain, chest pain, shortness of breath, nausea, vomiting. He did state that he was constipated. His abdomen is very distended however is soft. He does have bowel sounds in all 4 quadrants. NG tube is present draining a dark brown greenish fluid. Patient does look tired and states that he is tired however denies any weakness or fatigue at this time. 04/01/22? 03:58 71-year-old male past medical history of dementia, anxiety, schizophrenia, COPD, HLD.? History of recurrent SBO most recently 02/2022.? Patient is A&O x1 at baseline, unable to provide history.? History obtained from chart.? Presented from intermediate with abdominal distension and intractable nausea/vomiting.? Labs remarkable for BUN/CR 35/2.8 (baseline creatinine around 1), initial lactic 3.? CT abdomen/pelvis demonstrates dilated small bowel concerning for adynamic ileus versus SBO, large stool in colon.? Patient was given 2 L normal saline bolus, Zofran and started on normal saline 125 cc/HR.? A general surgery consulted, NG tube placed. Review of Systems Review of Systems: All systems reviewed & are unremarkable except as noted in HPI and below Exam Const: General: cooperative, comfortable, no acute distress, well developed, alert, awake, in distress, ill appearing and tired appearing Nutritional Appearance: well nourished Orientation/consciousness: patient oriented x3 Limitations: no limitations HENMT: Head: normal to inspection Ears: hearing grossly normal bilaterally General nose exam: Normal external nose present Mouth: Yes Normal oral and palatal mucosa pr
[2022-04-03 16:00] VITALS: BP 163/82; PULSE 99; RESP 20; TEMP 36.4; O2SAT 94
--- NOTE | 2022-04-03 16:29 | PM.PNGS ---
Progress Note: A&P Assessment and Plan (1) Small bowel obstruction: Code(s): K56.609 - Unspecified intestinal obstruction, unspecified as to partial versus complete obstruction Status: Acute Assessment and Plan: looks to be resolved. Not sure this just isn't relative obstruction from chronic constipation. Will DC NG tube and start full liquids. (2) Constipation: Qualifiers: Constipation type: unspecified constipation type Qualified Code(s): K59.00 - Constipation, unspecified Code(s): K59.00 - Constipation, unspecified Status: Chronic Assessment and Plan: Multiple soapsuds enemas required but eventually patient did have bowel movement and has continued to clear his colon satisfactorily. (3) Schizophrenia: Code(s): F20.9 - Schizophrenia, unspecified Status: Chronic Assessment and Plan: Being continued on his usual home medications. Subjective Subjective Date/Time Seen: 04/03/22 16:29 Patient reports: bowel movement and other ( not able to verbalize meaningfully) Review of Systems Review of Systems: ROS unobtainable: Yes unobtainable due to medical condition Exam Const: General: comfortable, alert and awake GI: Inspection: obesity ( protuberant abdomen) GI Palp: Yes Soft to palpation and No Tenderness to palpation present (GI) Auscultation: normal bowel sounds Objective Data Vital Signs Vital Signs: Vital Signs - 24 hr 04/02/22 20:00 04/02/22 23:40 04/03/22 04:00 Temperature 37.1 C 36.4 C L 37.1 C Pulse Rate 95 94 96 Respiratory Rate 17 16 17 Blood Pressure 161/82 H 165/86 H 174/83 H Pulse Oximetry 94 93 93 Oxygen Delivery 04/03/22 07:54 04/03/22 08:00 04/03/22 12:00 Temperature 36.2 C L 36.6 C Pulse Rate 96 102 H Respiratory Rate 20 20 Blood Pressure 171/88 H 168/96 H Pulse Oximetry 95 95 Oxygen Delivery Room Air 04/03/22 16:00 Temperature 36.4 C Pulse Rate 99 Respiratory Rate 20 Blood Pressure 163/82 H Pulse Oximetry 94 Oxygen Delivery Intake/Output Intake/Output: Intake & Output 03/31/22 04/01/22 04/02/22 04/03/22 23:59 23:59 23:59 23:59 Intake Total 1999 1999 103 Output Total 700 1400 1150 700 Balance 1300 600 -120 -700 Meds/Results Medications: Active Medications Generic Name Dose Route Start Last Admin Trade Name Naveen PRN Reason Stop Dose Admin Enoxaparin Sodium 30 mg 04/02/22 21:00 04/03/22 08:55 Enoxaparin 30 Mg/0.3 Ml Syringe SUB-Q 30 mg Q12HR KEZIA Administration Sodium Chloride 1,000 mls @ 80 mls/hr 03/31/22 22:00 04/03/22 07:39 Normal Saline Iv IV CONT Not Given [id number] Miscellaneous Information 0 each 04/01/22 00:01 Clozapine Non Formulary. Recommend Use Home Med. XX 05/01/22 00:00 CLARIFY KEZIA Non-Formulary Medication 300 mg 04/01/22 21:00 Clozapine PO 05/01/22 20:59 HS KEZIA Non-Formulary Medication 100 mg 04/01/22 09:00 Clozapine PO 05/01/22 08:59 BID KEZIA Ondansetron HCl 4 mg 03/31/22 21:57 Ondansetron Inj 4 Mg/2 Ml Vial IV PUSH Q4H PRN Nausea Ondansetron HCl 4 mg 04/01/22 03:49 Ondansetron Inj 4 Mg/2 Ml Vial IV PUSH Q6H PRN Nausea And Vomiting Risperidone 1 mg 04/01/22 09:00 04/03/22 08:55 Risperidone 1 Mg Tablet PO 1 mg Q12HR KEZIA Administration Sertraline HCl 25 mg 04/01/22 09:00 04/03/22 08:55 Sertraline Hcl 25 Mg Tablet PO 25 mg Q12HR KEZIA Administration Tamsulosin HCl 0.4 mg 04/01/22 09:00 04/03/22 08:54 Tamsulosin Hcl 0.4 Mg Capsule PO 0.4 mg BID KEZIA Administration Radiology Results: ITS Impressions Abdomen/Pelvis CT 03/31/22 20:59 IMPRESSION: 1. Dilated small bowel, consistent with adynamic ileus versus partial small bowel obstruction. 2. Large volume of stool in the colon. Abdomen X-Ray 04/03/22 08:00 IMPRESSION: 1. Persistently dilated small bowel, consistent with adynamic ileus versus small bowel obstructio
[2022-04-03 20:35] VITALS: O2SAT 96
[2022-04-03 21:41] VITALS: BP 172/80; PULSE 105; RESP 20; TEMP 37.1; O2SAT 93
[2022-04-04] VITALS (8 sets, daily range): BP systolic 139–155; BP diastolic 62–83; PULSE 94–130; RESP 18–32; TEMP 36.8–38.8; O2SAT 80–99; BMI 29.8
[2022-04-04 06:04] LABS: Hematocrit 39.1 % (42.0-52.0); Hemoglobin 12.1 g/dL (14.0-18.0); Mean Corpuscular HGB Conc 30.9 g/dl (32-36); Mean Corpuscular Hemoglobin 28.1 pg (26-34); Mean Corpuscular Volume 90.9 fl (80-100); Mean Platelet Volume 9.5 fl (7.4-10.4); Platelet Count Result 360 k/mm3 (150-375); Red Cell Distribution Width 15.5 % (11.5-14.5); White Blood Count 14.8 K/mm3 (4.5-10.0)
[2022-04-04 06:27] LABS: Anion Gap 16 mmol/L (8-16); Blood Urea Nitrogen 16 mg/dL (9-20); Calcium 8.9 mg/dL (8.4-10.2); Carbon Dioxide 24 mmol/L (22-30); Chloride 108 mmol/L (98-107); Estimated Glomerular Filt Rate > 60; Glucose 131 mg/dL (65-110); Potassium 3.2 mmol/L (3.4-5.0); Sodium 148 mmol/L (137-145)
[2022-04-04] MEDS: TAMSULOSIN HCL 0.4 MG CAPSULE PO ×2 (09:05→18:34)
[2022-04-04] MEDS: SERTRALINE HCL 25 MG TABLET PO ×2 (09:05→20:18)
[2022-04-04] MEDS: ENOXAPARIN 30 MG/0.3 ML SYRINGE SUB-Q ×2 (09:05→20:18)
[2022-04-04] MEDS: risperiDONE 1 MG TABLET PO ×2 (09:05→20:18)
--- NOTE | 2022-04-04 10:45 | P.PNIM_ITS ---
Progress Note: A&P Assessment and Plan (1) Small bowel obstruction: Code(s): K56.609 - Unspecified intestinal obstruction, unspecified as to partial versus complete obstruction Status: Acute Assessment and Plan: * ABD/Pel CT from 04/04/22 showed improved bowel obstruction, chronic bowel enlargement, urinary retention * Abdominal x-ray shows persistent dilated small bowel consistent with adynamic ileus vs PSBO from 04/04/2022 * Small bowel follow through shows adequate time to get to the colon * NG tube removed * General surgery consulted and managing * Current diet full liquids, seems to be tolerating * Zofran on board * Trend KUB * Wonder if the clozapine has something to do with these bowel obstructions, however, it is not formulary here, Uptodate stated that this can be a cause from the blockage of the smooth muscle fibers in the abdomen (2) MARCIA (acute kidney injury): Code(s): N17.9 - Acute kidney failure, unspecified Status: Acute Assessment and Plan: * Current BUN and creatinine 16/0.8 * Avoid nephrotoxic medications * Baseline appears to be 0.9-1.2 * Trend labs * Probably related to dehydration * IV fluids on board * Adjust therapy as indicated * Urine Studies sodium 19, random urea 339, Creatinine 302.1 * FENa score 0.0 (3) Schizophrenia: Code(s): F20.9 - Schizophrenia, unspecified Status: Chronic Assessment and Plan: * Trend mood * Adjust therapy as indicated * Seems to be a stable at this time * We don't carry clozapine here * I did reach out to Dr. Wheeler, recommends Zyprexa starting patient at 5mg PO then increase by 5mg A day with goal being 20mg, and an IM dose of 5mg BID PRN for increased agitation (4) COPD (chronic obstructive pulmonary disease): Code(s): J44.9 - Chronic obstructive pulmonary disease, unspecified Status: Chronic Assessment and Plan: * No acute exacerbation at this time * Continue home medications * No need for oxygen * Nebs ordered (5) Leukocytosis: Code(s): D72.829 - Elevated white blood cell count, unspecified Status: Acute Assessment and Plan: * WBC elevated at 16 * CT of the chest/abd/pel indicated urinary retention * Urinary catheter inserted * No fever * Blood, * UA does not indicate infection urine cultures not needed * Will start cefepime and vanco emperically (6) Hypernatremia: Code(s): E87.0 - Hyperosmolality and hypernatremia Status: Acute Assessment and Plan: * NA 148 * Could be from the fluid * trend labs * fluids off (7) BPH (benign prostatic hyperplasia): Code(s): N40.0 - Benign prostatic hyperplasia without lower urinary tract symptoms Status: Acute Assessment and Plan: * CT indicates urinary retention * Could be from mental state at this point * Urinary catheter placed * Trend urine output * Tamsulosin continued from home * will need a void trail, will wait until more mentally stable Time Spent With Patient Time with patient: Greater than 35 minutes Subjective Date/time seen: 04/04/22 10:45 Interval history: 04/04/22 1045 Patient appears off today. He is diaphoretic. He usually responds to me, but he seems to be mumbling the same thing over and over again. His WBC are also elevated. Nurse reports that he has no
--- NOTE | 2022-04-04 10:45 | PM.IMPN ---
Progress Note: A&P Assessment and Plan (1) Small bowel obstruction: Code(s): K56.609 - Unspecified intestinal obstruction, unspecified as to partial versus complete obstruction Status: Acute Assessment and Plan: ABD/Pel CT from 04/04/22 showed improved bowel obstruction, chronic bowel enlargement, urinary retention Abdominal x-ray shows persistent dilated small bowel consistent with adynamic ileus vs PSBO from 04/04/2022 Small bowel follow through shows adequate time to get to the colon NG tube removed General surgery consulted and managing Current diet full liquids, seems to be tolerating Zofran on board Trend KUB Wonder if the clozapine has something to do with these bowel obstructions, however, it is not formulary here, Uptodate stated that this can be a cause from the blockage of the smooth muscle fibers in the abdomen (2) MARCIA (acute kidney injury): Code(s): N17.9 - Acute kidney failure, unspecified Status: Acute Assessment and Plan: Current BUN and creatinine 16/0.8 Avoid nephrotoxic medications Baseline appears to be 0.9-1.2 Trend labs Probably related to dehydration IV fluids on board Adjust therapy as indicated Urine Studies sodium 19, random urea 339, Creatinine 302.1 FENa score 0.0 (3) Schizophrenia: Code(s): F20.9 - Schizophrenia, unspecified Status: Chronic Assessment and Plan: Trend mood Adjust therapy as indicated Seems to be a stable at this time We don't carry clozapine here I did reach out to Dr. Wheeler, recommends Zyprexa starting patient at 5mg PO then increase by 5mg A day with goal being 20mg, and an IM dose of 5mg BID PRN for increased agitation (4) COPD (chronic obstructive pulmonary disease): Code(s): J44.9 - Chronic obstructive pulmonary disease, unspecified Status: Chronic Assessment and Plan: No acute exacerbation at this time Continue home medications No need for oxygen Nebs ordered (5) Leukocytosis: Code(s): D72.829 - Elevated white blood cell count, unspecified Status: Acute Assessment and Plan: WBC elevated at 16 CT of the chest/abd/pel indicated urinary retention Urinary catheter inserted No fever Blood, UA does not indicate infection urine cultures not needed Will start cefepime and vanco emperically (6) Hypernatremia: Code(s): E87.0 - Hyperosmolality and hypernatremia Status: Acute Assessment and Plan: NA 148 Could be from the fluid trend labs fluids off (7) BPH (benign prostatic hyperplasia): Code(s): N40.0 - Benign prostatic hyperplasia without lower urinary tract symptoms Status: Acute Assessment and Plan: CT indicates urinary retention Could be from mental state at this point Urinary catheter placed Trend urine output Tamsulosin continued from home will need a void trail, will wait until more mentally stable Time Spent With Patient Time with patient: Greater than 35 minutes Subjective Date/time seen: 04/04/22 10:45 Interval history: 04/04/22 1045 Patient appears off today. He is diaphoretic. He usually responds to me, but he seems to be mumbling the same thing over and over again. His WBC are also elevated. Nurse reports that he has not been sleeping. He is eating. When I ask him if something is wrong he just stares at me. Complete review of systems unable to be obtained due to mental status. Updated his sister about new findings. CT of the abd/pel indicated urinary retention. urinary catheter was placed, urine was sent, however UA did not indicate any retention. WBC increased on repeat draw. Start emperic antibiotics. Could be from the retention. 04/03/22 1300 Patient is doing okay today. Patient still denies any nausea or vomiting. He looks comfortable at this time. Pain is dissipating. 04/02/22 114
[2022-04-04 11:12] LABS: Lactic Acid Reflex 0.8 mmol/L (0.7-2.0)
[2022-04-04 13:48] LABS: Basophils Absolute Auto 0.1 K/mm3 (0.0-0.1); Basophils Percent Auto 0.3 % (0.2-1.2); Eosinophils Percent Auto 0.1 % (0-4.4); Hematocrit 37.9 % (42.0-52.0); Hemoglobin 11.7 g/dL (14.0-18.0); Immature Granulocyte Absolute 0.12 K/mm3 (0.00-0.031); Immature Granulocyte Percent A 0.8 % (0-0.5); Lymphocytes Absolute Auto 1.44 K/mm3 (0.9-3.2); Mean Corpuscular HGB Conc 30.9 g/dl (32-36); Mean Corpuscular Hemoglobin 28.1 pg (26-34); Mean Corpuscular Volume 91.1 fl (80-100); Mean Platelet Volume 9.1 fl (7.4-10.4); Monocytes Absolute Auto 1.1 K/mm3 (0.1-0.6); Monocytes Percent Auto 6.7 % (2.6-8.5); Neutrophils Absolute Auto 13.3 K/mm3 (1.3-6.7); Neutrophils Percent Auto 83.1 % (45.5-73.1); Platelet Count Result 353 k/mm3 (150-375); Red Blood Count 4.16 M/mm3 (4.6-6.20); Red Cell Distribution Width 15.7 % (11.5-14.5)
--- NOTE | 2022-04-04 13:54 | PM.PNGS ---
Progress Note: A&P Assessment and Plan (1) Leukocytosis: Code(s): D72.829 - Elevated white blood cell count, unspecified Status: Acute Assessment and Plan: white blood cell count much higher today. Will discuss with hospitalist but plan to order CT scan abdomen and pelvis. Abdomen still distended with dilated loops of small and large bowel on plain films this morning. Talked with hospitalist, Segundo Aguirre, and will also get CTA of the chest to rule out a PE. (2) Small bowel obstruction: Code(s): K56.609 - Unspecified intestinal obstruction, unspecified as to partial versus complete obstruction Status: Acute Assessment and Plan: No evidence of obstruction by small-bowel follow-through completed yesterday. (3) Constipation: Qualifiers: Constipation type: unspecified constipation type Qualified Code(s): K59.00 - Constipation, unspecified Code(s): K59.00 - Constipation, unspecified Status: Chronic Assessment and Plan: Was completely packed with stool throughout his colon on presentation. This has improved with enemas. White count is rising as noted above. CT has been planned. (4) Schizophrenia: Code(s): F20.9 - Schizophrenia, unspecified Status: Chronic Subjective Subjective Date/Time Seen: 04/04/22 13:54 Patient reports: bowel movement ( very large bowel movement again early this morning.), afebrile and other ( Nonverbal due to mental illness) Review of Systems Review of Systems: ROS unobtainable: Yes unobtainable due to medical condition Exam Const: General: comfortable, alert and awake Nutritional Appearance: well nourished Orientation/consciousness: Other orientation findings GI: Inspection: distended GI Palp: Yes Firmness to palpation present (GI) and No Tenderness to palpation present (GI) Auscultation: normal bowel sounds and normoactive bowel sounds Objective Data Vital Signs Vital Signs: Vital Signs - 24 hr 04/03/22 16:00 04/03/22 21:41 04/03/22 20:35 Temperature 36.4 C 37.1 C Pulse Rate 99 105 H Respiratory Rate 20 20 Blood Pressure 163/82 H 172/80 H Pulse Oximetry 94 93 96 Oxygen Delivery Room Air 04/04/22 05:24 04/04/22 08:00 Temperature 36.9 C Pulse Rate 101 H Respiratory Rate 18 Blood Pressure 144/72 H Pulse Oximetry 90 Oxygen Delivery Room Air Intake/Output Intake/Output: Intake & Output 04/01/22 04/02/22 04/03/22 04/04/22 23:59 23:59 23:59 23:59 Intake Total 1999 1030 954 320 Output Total 1400 1150 1000 Balance 600 -120 -46 320 Meds/Results Medications: Active Medications Generic Name Dose Route Start Last Admin Trade Name Freq PRN Reason Stop Dose Admin Enoxaparin Sodium 30 mg 04/02/22 21:00 04/04/22 09:05 Enoxaparin 30 Mg/0.3 Ml Syringe SUB-Q 30 mg Q12HR KEZIA Administration Sodium Chloride 1,000 mls @ 80 mls/hr 03/31/22 22:00 04/03/22 16:39 Normal Saline Iv IV CONT Not Given .[id number] [facility] Miscellaneous Information 0 each 04/01/22 00:01 Clozapine Non Formulary. Recommend Use Home Med. XX 05/01/22 00:00 CLARIFY KEZIA Ondansetron HCl 4 mg 03/31/22 21:57 Ondansetron Inj 4 Mg/2 Ml Vial IV PUSH Q4H PRN Nausea Ondansetron HCl 4 mg 04/01/22 03:49 Ondansetron Inj 4 Mg/2 Ml Vial IV PUSH Q6H PRN Nausea And Vomiting Risperidone 1 mg 04/01/22 09:00 04/04/22 09:05 Risperidone 1 Mg Tablet PO 1 mg Q12HR KEZIA Administration Sertraline HCl 25 mg 04/01/22 09:00 04/04/22 09:05 Sertraline Hcl 25 Mg Tablet PO 25 mg Q12HR KEZIA Administration Tamsulosin HCl 0.4 mg 04/01/22 09:00 04/04/22 09:05 Tamsulosin Hcl 0.4 Mg Capsule PO 0.4 mg BID KEZIA Administration Radiology Results: ITS Impressions Abdomen/Pelvis CT 03/31/22 20:59 IMPRESSION: 1. Dilated small bowel, consistent with adynamic ileus versus partial small bowel obstruction. 2. Large volume of stool in the colon.
[2022-04-04 14:04] LABS: Alanine Aminotransferase 12 U/L (6-50); Albumin Level 3.7 g/dL (3.5-5.1); Alkaline Phosphatase 79 U/L (38-126); Anion Gap 11 mmol/L (8-16); Aspartate Amino Transferase 17 U/L (17-59); Bilirubin,Total 0.5 mg/dL (0.2-1.3); Blood Urea Nitrogen 19 mg/dL (9-20); Calcium 8.9 mg/dL (8.4-10.2); Carbon Dioxide 28 mmol/L (22-30); Chloride 109 mmol/L (98-107); Estimated Glomerular Filt Rate > 60; Glucose 181 mg/dL (65-110); Potassium 3.3 mmol/L (3.4-5.0); Sodium 148 mmol/L (137-145)
[2022-04-04] MEDS: LACTATED RINGERS 500 ML 100 ML IV CONT (16:14)
[2022-04-04] MEDS: POTASSIUM CHLORIDE 20 MEQ TABLET 40 MEQ PO (16:17)
[2022-04-04 18:25] LABS: Appearance Urine Clear (Clear); Bilirubin Urine 2+ (Negative); Blood Urine 2+ (Negative); Color Urine Yellow (Yellow); Glucose Urine UA Negative (Negative); Ketones Urine 1+ mg/dL (Negative); Leukocyte Esterase Ur Negative LEU/UL (Negative); Nitrate Urine Negative (Negative); Protein Urine Trace mg/dL (Negative); Specific Grav Ur 1.015 (1.001-1.035); Urobilinogen Urine 0.2 mg/dL (<2.0)
[2022-04-04 18:36] LABS: Add Urine Microscopic? YES
[2022-04-04 19:39] LABS: Glucose Point of Care 245 mg/dl (65-105)
[2022-04-04] MEDS: MELATONIN 5 MG TABLET PO (20:18)
[2022-04-04] MEDS: ACETAMINOPHEN 325 MG TABLET 650 MG PO (20:18)
[2022-04-04] MEDS: IPRATROPIUM BR 0.02% INH SOLN 0.5 MG/2.5 ML VIAL (20:43)
[2022-04-04] MEDS: ALBUTEROL SULFATE NEB 2.5 MG/0.5 ML INH 5 MG (20:44)
[2022-04-04] MEDS: LACTATED RINGERS 1,000 ML 100 ML IV CONT (20:47)
--- NOTE | 2022-04-04 21:55 | PM.EVENT ---
Event Note Event Note Event Note: rapid response was called. Patient had a witnessed seizure for approximately 30 seconds as per nursing staff. Patient appears to be postictal. His oxygen level was turned down to 2 L. it had been up to 15 L during the seizure. Could possibly be afebrile seizure. I had ordered Ativan but was not readily available during the seizure. Patient is now postictal. Dr. Saenz and also evaluated the patient.
[2022-04-04] MEDS: OLANZapine 5 MG TABLET PO (22:38)
[2022-04-04] MEDS: levETIRAcetam 1000MG/NACL100ML 1,000 MG/100 ML BAG 400 MG IVPB (22:39)
[2022-04-04 23:41] LABS: SARS-CoV-2 RNA PCR Negative
[2022-04-05] VITALS (8 sets, daily range): BP systolic 132–146; BP diastolic 68–79; PULSE 76–86; RESP 16–20; TEMP 36.4–37.7; O2SAT 93–98
[2022-04-05] MEDS: LACTATED RINGERS 1,000 ML 100 ML IV CONT (05:34)
[2022-04-05 06:46] LABS: Basophils Absolute Auto 0.1 K/mm3 (0.0-0.1); Basophils Percent Auto 0.4 % (0.2-1.2); Eosinophils Absolute Auto 0.1 K/mm3 (0-0.3); Eosinophils Percent Auto 0.5 % (0-4.4); Hematocrit 37.9 % (42.0-52.0); Hemoglobin 11.4 g/dL (14.0-18.0); Immature Granulocyte Absolute 0.12 K/mm3 (0.00-0.031); Lymphocytes Absolute Auto 1.31 K/mm3 (0.9-3.2); Lymphocytes Percent Auto 11.4 % (18.3-44.2); Mean Corpuscular HGB Conc 30.1 g/dl (32-36); Mean Corpuscular Hemoglobin 27.9 pg (26-34); Mean Corpuscular Volume 92.7 fl (80-100); Mean Platelet Volume 9.9 fl (7.4-10.4); Monocytes Absolute Auto 0.9 K/mm3 (0.1-0.6); Monocytes Percent Auto 7.4 % (2.6-8.5); Neutrophils Absolute Auto 9.1 K/mm3 (1.3-6.7); Neutrophils Percent Auto 79.3 % (45.5-73.1); Platelet Count Result 345 k/mm3 (150-375); Red Blood Count 4.09 M/mm3 (4.6-6.20); Red Cell Distribution Width 15.8 % (11.5-14.5); White Blood Count 11.5 K/mm3 (4.5-10.0)
[2022-04-05 07:00] LABS: Alanine Aminotransferase 10 U/L (6-50); Albumin Level 3.4 g/dL (3.5-5.1); Alkaline Phosphatase 63 U/L (38-126); Anion Gap 9 mmol/L (8-16); Aspartate Amino Transferase 25 U/L (17-59); Bilirubin,Total 0.5 mg/dL (0.2-1.3); Blood Urea Nitrogen 14 mg/dL (9-20); Calcium 8.1 mg/dL (8.4-10.2); Carbon Dioxide 31 mmol/L (22-30); Chloride 109 mmol/L (98-107); Estimated CRCL calculation 78 ml/min; Estimated Glomerular Filt Rate > 60; Glucose 137 mg/dL (65-110); Magnesium 2.3 mg/dL (1.6-2.3); Potassium 3.6 mmol/L (3.4-5.0); Sodium 149 mmol/L (137-145)
[2022-04-05] MEDS: DEXTROSE 5%/0.45% SOD CHL 1,000 ML 100 ML IV CONT ×2 (09:03→21:18)
[2022-04-05] MEDS: levETIRAcetam 500MG/NACL 100ML 500 MG/100 ML BAG 400 MG IVPB ×2 (09:04→21:24)
[2022-04-05] MEDS: ENOXAPARIN 30 MG/0.3 ML SYRINGE SUB-Q ×2 (09:04→21:24)
[2022-04-05] MEDS: risperiDONE 1 MG TABLET PO ×2 (09:04→21:24)
[2022-04-05] MEDS: SERTRALINE HCL 25 MG TABLET PO ×2 (09:04→21:24)
[2022-04-05] MEDS: TAMSULOSIN HCL 0.4 MG CAPSULE PO (09:05)
--- NOTE | 2022-04-05 11:00 | PM.IMPN ---
Progress Note: A&P Assessment and Plan (1) Small bowel obstruction: Code(s): K56.609 - Unspecified intestinal obstruction, unspecified as to partial versus complete obstruction Status: Acute Assessment and Plan: ABD/Pel CT from 04/04/22 showed improved bowel obstruction, chronic bowel enlargement, urinary retention Abdominal x-ray shows persistent dilated small bowel consistent with adynamic ileus vs PSBO from 04/04/2022 Small bowel follow through shows adequate time to get to the colon NG tube removed General surgery consulted and managing diet increased to low fiber Zofran on board Wonder if the clozapine has something to do with these bowel obstructions, however, it is not formulary here, Uptodate stated that this can be a cause from the blockage of the smooth muscle fibers in the abdomen (2) MARCIA (acute kidney injury): Code(s): N17.9 - Acute kidney failure, unspecified Status: Acute Assessment and Plan: Current BUN and creatinine 10/0.80 Avoid nephrotoxic medications Baseline appears to be 0.9-1.2 Trend labs Probably related to dehydration IV fluids on board Adjust therapy as indicated Urine Studies sodium 19, random urea 339, Creatinine 302.1 FENa score 0.0 (3) Schizophrenia: Code(s): F20.9 - Schizophrenia, unspecified Status: Chronic Assessment and Plan: Trend mood Adjust therapy as indicated Seems to be a stable at this time We don't carry clozapine here I did reach out to Dr. Wheeler who saw the patient, recommends keep patient on current medication (4) COPD (chronic obstructive pulmonary disease): Code(s): J44.9 - Chronic obstructive pulmonary disease, unspecified Status: Chronic Assessment and Plan: No acute exacerbation at this time Continue home medications No need for oxygen Nebs ordered (5) Leukocytosis: Code(s): D72.829 - Elevated white blood cell count, unspecified Status: Acute Assessment and Plan: WBC trending down currently at 9.8 CT of the chest/abd/pel indicated urinary retention Urinary catheter inserted No fever, tachypnea No fever Blood cultures NGTD UA does not indicate infection urine cultures not needed DC'd antibiotics at this time, with no indication of infection (6) Hypernatremia: Code(s): E87.0 - Hyperosmolality and hypernatremia Status: Acute Assessment and Plan: NA 145 D5 1/2NS started at 100ml/hr trend labs Could be the cause for the seizures (7) BPH (benign prostatic hyperplasia): Code(s): N40.0 - Benign prostatic hyperplasia without lower urinary tract symptoms Status: Acute Assessment and Plan: CT indicates urinary retention Could be from mental state at this point Urinary catheter placed Trend urine output Tamsulosin on hold will need a void trail, will wait until more mentally stable Complete void trial and remove urinary catheter (8) Seizure: Code(s): R56.9 - Unspecified convulsions Status: Acute Assessment and Plan: Noted to have a short one overnight Keppra given, and continued Could be hypernatremia or delirium Neuro checks Neurology consult Ativan ordered PRN for break through seizures (9) CVA (cerebral vascular accident): Code(s): I63.9 - Cerebral infarction, unspecified Status: Chronic Assessment and Plan: Noted on the Head ct Continue to trend Neurology consulted Carotid doppler <50% on right and 50-69% on left (10) Acute metabolic encephalopathy: Code(s): G93.41 - Metabolic encephalopathy Status: Acute Assessment and Plan: Patient had a mental status change Continues to mumble Could be related to hypernatremia, exacerbation of his schizophrenia Psych and neuro consulted Head CT showed old infarct Fluids on to de
--- NOTE | 2022-04-05 11:00 | P.PNIM_ITS ---
Progress Note: A&P Assessment and Plan (1) Small bowel obstruction: Code(s): K56.609 - Unspecified intestinal obstruction, unspecified as to partial versus complete obstruction Status: Acute Assessment and Plan: * ABD/Pel CT from 04/04/22 showed improved bowel obstruction, chronic bowel enlargement, urinary retention * Abdominal x-ray shows persistent dilated small bowel consistent with adynamic ileus vs PSBO from 04/04/2022 * Small bowel follow through shows adequate time to get to the colon * NG tube removed * General surgery consulted and managing * diet increased to low fiber * Zofran on board * Wonder if the clozapine has something to do with these bowel obstructions, however, it is not formulary here, Uptodate stated that this can be a cause from the blockage of the smooth muscle fibers in the abdomen (2) MARCIA (acute kidney injury): Code(s): N17.9 - Acute kidney failure, unspecified Status: Acute Assessment and Plan: * Current BUN and creatinine 10/0.80 * Avoid nephrotoxic medications * Baseline appears to be 0.9-1.2 * Trend labs * Probably related to dehydration * IV fluids on board * Adjust therapy as indicated * Urine Studies sodium 19, random urea 339, Creatinine 302.1 * FENa score 0.0 (3) Schizophrenia: Code(s): F20.9 - Schizophrenia, unspecified Status: Chronic Assessment and Plan: * Trend mood * Adjust therapy as indicated * Seems to be a stable at this time * We don't carry clozapine here * I did reach out to Dr. Wheeler who saw the patient, recommends keep patient on current medication (4) COPD (chronic obstructive pulmonary disease): Code(s): J44.9 - Chronic obstructive pulmonary disease, unspecified Status: Chronic Assessment and Plan: * No acute exacerbation at this time * Continue home medications * No need for oxygen * Nebs ordered (5) Leukocytosis: Code(s): D72.829 - Elevated white blood cell count, unspecified Status: Acute Assessment and Plan: * WBC trending down currently at 9.8 * CT of the chest/abd/pel indicated urinary retention * Urinary catheter inserted * No fever, tachypnea * No fever * Blood cultures NGTD * UA does not indicate infection urine cultures not needed * DC'd antibiotics at this time, with no indication of infection (6) Hypernatremia: Code(s): E87.0 - Hyperosmolality and hypernatremia Status: Acute Assessment and Plan: * NA 145 * D5 1/2NS started at 100ml/hr * trend labs * Could be the cause for the seizures (7) BPH (benign prostatic hyperplasia): Code(s): N40.0 - Benign prostatic hyperplasia without lower urinary tract symptoms Status: Acute Assessment and Plan: * CT indicates urinary retention * Could be from mental state at this point * Urinary catheter placed * Trend urine output * Tamsulosin on hold * will need a void trail, will wait until more mentally stable * Complete void trial and remove urinary catheter (8) Seizure: Code(s): R56.9 - Unspecified convulsions Status: Acute Assessment and Plan: * Noted to have a short one overnight * Keppra given, and continued * Could be hypernatremia or delirium * Neuro checks * Neurology consult * Ativan ordered PRN for break through seizures
--- NOTE | 2022-04-05 11:56 | WPDNEURCNPN ---
Assessment and Plan Assessment and plan (1) Seizure: Code(s): R56.9 - Unspecified convulsions Status: Acute Assessment and Plan: short lasting single seizure with multiple medical problems and multiple medications will need observation for the seizure precaution and will give Keppra 250 mg b.i.d. Consult date: 04/05/22 Time Seen: 11:30 Reason for consult: seizures HPI: John Youssef Jr. is a 71 year old male had a witnessed seizure for 30seconds as per the nursing staff when seen by the physician was noted the postictal his oxygen was turned down to 2 later had been on 15L during the seizure received Ativan, patient had been in the hospital for small bowel obstruction with chronic bowel enlargement and urinary retention has had the recent NG tube removed also underlying schizophrenia for which receiving Zyprexa with inter recommendation to take 5 mg p.o. daily and IM of 5 mg b.i.d. only p.r.n. 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 and 300 mg p.o. HS in addition to risperidone 1 mg b.i.d. and sertraline 25 mg b.i.d. Review of Systems Review of Systems: All systems reviewed & are unremarkable except as noted in HPI and below PMFSH Past Medical History Medical History Anxiety Dementia Dysphagia Hyperlipidemia Schizophrenia Tourettes disease Surgical History Surgical History No pertinent past surgical history Family History Family History Father Coronary artery disease CHF (congestive heart failure) Mother Coronary artery disease Sibling Coronary artery disease Sibling Multiple sclerosis Social History Social History Social History: Mr. Youssef is a nursing home resident at [facility]. He has been there for 20 years. His parents are and he has two siblings. He is a current smoker and smokes approximately 1-2 packs per week. He does not drink alcohol or use illicit substances. His sister, Jemima Dickerson, is his POA. 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 Years smoked: 50 Smoking status: Light tobacco smoker Second hand tobacco smoke exposure: Yes Alcohol intake: never Substance use: never Gender identity (if verbalized by the patient): Male Spiritual care concerns: No Meds Home Medications and Allergies Home Medications Medication Instructions Recorded Confirmed Type clozapine 100 mg tablet 100 mg PO BID 07/16/20 04/01/22 History fenofibrate micronized 67 mg 67 mg PO DAILY 07/16/20 04/01/22 History capsule lactulose 10 gram/15 mL oral 20 g PO BID 07/16/20 04/01/22 History solution risperidone 1 mg tablet 1 mg PO BID 07/16/20 04/01/22 History sertraline 25 mg tablet 25 mg PO BID 07/16/20 04/01/22 History clozapine 100 mg tablet 300 mg PO HS 07/17/20 04/01/22 History docusate sodium 100 mg tablet 100 mg PO BID 07/17/20 04/01/22 History folic acid 1 mg tablet 1 mg PO DAILY 07/17/20 04/01/22 History omega [id number]-qsu-iui-fish oil 1,000 mg 2 cap PO TID 07/17/20 04/01/22 History (120 mg-180 mg) capsule (Fish Oil) famotidine 40 mg tablet 40 mg PO HS 02/22/22 04/01/22 History tamsulosin 0.4 mg capsule 0.4 mg PO BID 02/22/22 04/01/22 History acetaminophen 325 mg tablet 650 mg PO Q6H PRN fever or pain 04/01/22 04/01/22 History (Tylenol) diphenhydramine HCl 25 mg capsule 25 mg PO TID PRN Rash 04/01/22 04/01/22 History (Benadryl) Allergies Allergy/AdvReac Type Marisol
[2022-04-05 12:26] LABS: Creatine Kinase 167 U/L (55-170)
[2022-04-05 13:14] LABS: Ammonia 14 umol/L (9-30)
--- NOTE | 2022-04-05 13:27 | PCSTNOTE ---
Please refer to the Bedside Swallow Evaluation in the EMR. Please note, silent aspiration cannot be ruled out at bedside.
[2022-04-05 14:10] LABS: Vitamin D 25 Hydroxy < 12.8 ng/mL
[2022-04-05 14:35] LABS: Folic Acid > 20.0 ng/mL (2.76->20)
--- NOTE | 2022-04-05 15:31 | WPDCNPSYCH ---
HPI Data of Consult Date/Time: 04/05/22 15:31 Requesting Physician: Thony Soto DO Primary Care Provider: SOUND ENGINEERING TECHNICIAN PHYSICIAN Consult Narrative Narrative: Diagnoses: Patient has no clear convincing evidence of psychosis. 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 Clozapine will be avoided at this time. Clozapine is non formulary at this hospital. The patient has been off of clozapine for about four days. To resume it would require starting it at very low dose and titrating it upwards very slowly which would be difficult in the context of new onset seizures which are unlikely to have been caused by the clozapine due to it having been washing out. Clozapine level is pending at time of this dictation. Also, clozapine may be contributing to the patient's significant constipation. Patient will need to be monitored for the emergence of a severe psychotic rebound phenomenon common to abrupt cessation of clozapine. 2.Continue Risperdal 1mg p.o. b.i.d. for his history of having a primary psychotic disorder. Hopefully the patient may be well managed with the use of Risperdal without the use of clozapine. 3. Sertraline 25mg p.o. b.i.d. 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 4. Olanzapine 5mg was given as a 1 time dose yesterday at 8:38 p.m.. The patient seizure occurred around 8:00 p.m.. The olanzapine is not likely to have contributed to the patient's new onset seizure. Olanzapine has been discontinued since the patient is already on scheduled Risperdal and will hopefully not need an additional scheduled antipsychotic. 5. I left a voice mail on [phone] Brandt Mullen to call me back on my cellphone number [phone] to discuss his patient's evaluation and treatment course by working together. Reason for consultation: Patient is a 71-year-old gentleman whose consultation was ordered by Segundo Aguirre NP for mental status changes thought to possibly be related to an emerging psychosis in the context of recent clozapine discontinuation. Review of systems: Limited due to dementia and delirium Mental status exam: Patient has a self-care deficit. Eye contact, posture, and psychomotor activity were normal for a gentleman in a hospital bed. Speech was extremely low in volume. His vocalizations did not form words. He was unable to communicate in a 2 way conversation. Mood could not be determined due to dementia and delirium. Patient has no evidence of being suicidal or homicidal. He has no evidence of being a injury risk to himself or others. Although he has no clear convincing evidence of auditory or visual hallucinations or delusions, his psychiatric nurse practitioner,HARRIETT Quintero, indicates that sometimes he will be noted to be having lip movements consistent with softly spoken self talk. With all of that being said, significant consideration to the patient having some form of aphasia exist. Cognitively the patient is alert but he does not even appear oriented to name. He seems to have limited capacity to follow commands. Medical evaluation: CBC: WBCs are 11.5; hemoglobin 11.4 Comprehensive metabolic panel: Sodium 149; chloride 109; CO2 31; random glucose 137; calcium 8.1; Ammonia level is 14 ( 9-30) Total creatinine 167 ( 55-170) Vitamin B12 level pending Folic acid level pending Vitamin D3 level pending Clozapine and norclozapine levels obtained 04/05/2022 pending COVID-19 testing negative Urine analysis: Urine rbc's 6-10; urine wbc's 4-6; nitrit
--- NOTE | 2022-04-05 16:16 | PM.PNGS ---
Progress Note: A&P Assessment and Plan (1) Leukocytosis: Code(s): D72.829 - Elevated white blood cell count, unspecified Status: Acute Assessment and Plan: Improving, down to 11,[address] scan yesterday did not show a GI source of infection, sepsis. (2) Small bowel obstruction: Code(s): K56.609 - Unspecified intestinal obstruction, unspecified as to partial versus complete obstruction Status: Acute Assessment and Plan: Resolved. Probably more a problem with colonic motility as patient has been severely constipated on each instance he presented with bowel obstruction. Seemed to always resolve with resolution of impacted stool in colon. Now eating and having BM's. Will sign off. (3) Constipation: Qualifiers: Constipation type: unspecified constipation type Qualified Code(s): K59.00 - Constipation, unspecified Code(s): K59.00 - Constipation, unspecified Status: Chronic Assessment and Plan: May have colonic motility issues as above. If wish to evaluate, ask GI to see. Taking many laxatives yet comes in each time with massive amounts colonic stool. (4) Schizophrenia: Code(s): F20.9 - Schizophrenia, unspecified Status: Chronic Assessment and Plan: Psychiatry evaluating. Had seizure last night as well. Subjective Subjective Date/Time Seen: 04/05/22 16:16 Patient reports: bowel movement, afebrile and other (continues to speak continuously but nonsensically) Interval history: Patient noted to have had a seizure last night. Review of Systems Review of Systems: ROS unobtainable: Yes unobtainable due to medical condition Exam Const: General: alert and awake GI: Inspection: obesity (protuberant) and no visible herniation GI Palp: Yes Soft to palpation and No Tenderness to palpation present (GI) Auscultation: normal bowel sounds Objective Data Vital Signs Vital Signs: Vital Signs - 24 hr 04/04/22 20:18 04/04/22 20:45 04/04/22 21:18 Temperature 38.8 C H 37.1 C Pulse Rate 96 Respiratory Rate 18 Blood Pressure Pulse Oximetry Oxygen Delivery Oxygen Flow Rate 04/04/22 22:00 04/04/22 23:12 04/04/22 23:18 Temperature 38.4 C H 38.8 C H 37.1 C Pulse Rate 103 H 130 H 125 H Respiratory Rate 26 H 32 H 25 H Blood Pressure 146/75 H 155/62 H Pulse Oximetry 99 80 L 94 Oxygen Delivery Room Air Oxygen Flow Rate 04/04/22 23:12 04/05/22 03:12 04/05/22 05:58 Temperature 36.4 C Pulse Rate 105 H 78 86 Respiratory Rate 20 Blood Pressure 134/68 Pulse Oximetry 98 Oxygen Delivery Oxygen Flow Rate 04/05/22 09:00 04/05/22 12:14 04/05/22 14:00 Temperature 36.6 C Pulse Rate 85 Respiratory Rate 16 Blood Pressure 132/75 Pulse Oximetry 97 94 Oxygen Delivery High Flow Nasal Cannula Room Air Oxygen Flow Rate 4 04/05/22 08:00 04/05/22 12:00 Temperature Pulse Rate 76 78 Respiratory Rate Blood Pressure Pulse Oximetry Oxygen Delivery Oxygen Flow Rate Intake/Output Intake/Output: Intake & Output 04/02/22 04/03/22 04/04/22 04/05/22 23:59 23:59 23:59 23:59 Intake Total 3731 187 1737 1630 Output Total 1150 1000 550 350 Balance -120 -46 1080 1280 Meds/Results Medications: Active Medications Generic Name Dose Route Start Last Admin Trade Name Freq PRN Reason Stop Dose Admin Acetaminophen 650 mg 04/04/22 20:06 04/04/22 20:18 Acetaminophen 325 Mg Tablet PO 650 mg Q4H PRN Administration Pain or Fever Albuterol 5 mg 04/04/22 20:40 Albuterol Sulfate Neb 2.5 Mg/3 Ml Inh INHALATION Q6HRT PRN Shortness Of Breath Enoxaparin Sodium 30 mg 04/02/22 21:00 04/05/22 09:04 Enoxaparin 30 Mg/0.3 Ml Syringe SUB-Q 30 mg Q12HR KEZIA Administration Cefepime HCl 1 gm in 50 mls @ 100 mls/hr 04/04/22 17:00 04/05/22 05:34 Maxipime 1 Gm/D5w 50 Ml IVPB 100 mls/hr Q12H KEZIA Administration Vancomycin H
[2022-04-05 17:37] LABS: Hemoglobin A1C 6.5 % (<5.7)
[2022-04-05] MEDS: MELATONIN 5 MG TABLET PO (21:24)
[2022-04-06 05:29] VITALS: BP 145/82; PULSE 77; RESP 20; TEMP 37.7; O2SAT 93
[2022-04-06 06:46] LABS: Basophils Percent Auto 0.4 % (0.2-1.2); Eosinophils Absolute Auto 0.1 K/mm3 (0-0.3); Eosinophils Percent Auto 0.8 % (0-4.4); Hematocrit 35.9 % (42.0-52.0); Hemoglobin 10.9 g/dL (14.0-18.0); Immature Granulocyte Absolute 0.19 K/mm3 (0.00-0.031); Immature Granulocyte Percent A 1.9 % (0-0.5); Lymphocytes Absolute Auto 1.84 K/mm3 (0.9-3.2); Lymphocytes Percent Auto 18.8 % (18.3-44.2); Mean Corpuscular HGB Conc 30.4 g/dl (32-36); Mean Corpuscular Hemoglobin 27.7 pg (26-34); Mean Corpuscular Volume 91.3 fl (80-100); Mean Platelet Volume 9.9 fl (7.4-10.4); Monocytes Absolute Auto 0.9 K/mm3 (0.1-0.6); Neutrophils Absolute Auto 6.8 K/mm3 (1.3-6.7); Neutrophils Percent Auto 69.1 % (45.5-73.1); Platelet Count Result 345 k/mm3 (150-375); Red Blood Count 3.93 M/mm3 (4.6-6.20); Red Cell Distribution Width 15.3 % (11.5-14.5); White Blood Count 9.8 K/mm3 (4.5-10.0)
[2022-04-06 07:04] LABS: Alanine Aminotransferase 12 U/L (6-50); Albumin Level 3.4 g/dL (3.5-5.1); Alkaline Phosphatase 72 U/L (38-126); Anion Gap 8 mmol/L (8-16); Aspartate Amino Transferase 22 U/L (17-59); Bilirubin,Total 0.4 mg/dL (0.2-1.3); Blood Urea Nitrogen 10 mg/dL (9-20); Carbon Dioxide 30 mmol/L (22-30); Chloride 107 mmol/L (98-107); Estimated CRCL calculation 78 ml/min; Estimated Glomerular Filt Rate > 60; Glucose 147 mg/dL (65-110); Magnesium 1.7 mg/dL (1.6-2.3); Sodium 145 mmol/L (137-145)
[2022-04-06 09:50] VITALS: O2SAT 93
[2022-04-06] MEDS: levETIRAcetam 500MG/NACL 100ML 500 MG/100 ML BAG 400 MG IVPB ×2 (09:51→20:56)
[2022-04-06] MEDS: risperiDONE 1 MG TABLET PO ×2 (09:52→20:56)
[2022-04-06] MEDS: ENOXAPARIN 30 MG/0.3 ML SYRINGE SUB-Q ×2 (09:52→20:55)
[2022-04-06] MEDS: SERTRALINE HCL 25 MG TABLET PO ×2 (09:52→20:56)
--- NOTE | 2022-04-06 10:15 | P.PNIM_ITS ---
Progress Note: A&P Assessment and Plan (1) Small bowel obstruction: Code(s): K56.609 - Unspecified intestinal obstruction, unspecified as to partial versus complete obstruction Status: Acute Assessment and Plan: * ABD/Pel CT from 04/04/22 showed improved bowel obstruction, chronic bowel enlargement, urinary retention * Abdominal x-ray shows persistent dilated small bowel consistent with adynamic ileus vs PSBO from 04/04/2022 * Small bowel follow through shows adequate time to get to the colon * NG tube removed * General surgery consulted, signed off at this time * diet increased to low fiber * Zofran on board * Wonder if the clozapine has something to do with these bowel obstructions, however, it is not formulary here, Uptodate stated that this can be a cause from the blockage of the smooth muscle fibers in the abdomen (2) MARCIA (acute kidney injury): Code(s): N17.9 - Acute kidney failure, unspecified Status: Acute Assessment and Plan: * Current BUN and creatinine 10/0.80 * Avoid nephrotoxic medications * Baseline appears to be 0.9-1.2 * Trend labs * Probably related to dehydration * IV fluids on board * Adjust therapy as indicated * Urine Studies sodium 19, random urea 339, Creatinine 302.1 * FENa score 0.0 (3) Schizophrenia: Code(s): F20.9 - Schizophrenia, unspecified Status: Chronic Assessment and Plan: * Trend mood * Adjust therapy as indicated * Seems to be a stable at this time * We don't carry clozapine here * The clozapine should be discontinued at this time * I did reach out to Dr. Wheeler who saw the patient, recommends keep patient on current medication (4) COPD (chronic obstructive pulmonary disease): Code(s): J44.9 - Chronic obstructive pulmonary disease, unspecified Status: Chronic Assessment and Plan: * No acute exacerbation at this time * Continue home medications * No need for oxygen * Nebs ordered (5) Leukocytosis: Code(s): D72.829 - Elevated white blood cell count, unspecified Status: Acute Assessment and Plan: * WBC trending down currently at 9.8 * CT of the chest/abd/pel indicated urinary retention * Urinary catheter inserted * No fever, tachypnea * No fever * Blood cultures NGTD * UA does not indicate infection urine cultures not needed * DC'd antibiotics at this time, with no indication of infection (6) Hypernatremia: Code(s): E87.0 - Hyperosmolality and hypernatremia Status: Acute Assessment and Plan: * NA 145 * D5 1/2NS started at 100ml/hr * Continue fluid for now * trend labs * Could be the cause for the seizures (7) BPH (benign prostatic hyperplasia): Code(s): N40.0 - Benign prostatic hyperplasia without lower urinary tract symptoms Status: Acute Assessment and Plan: * CT indicates urinary retention * Could be from mental state at this point * Urinary catheter placed * Trend urine output * Tamsulosin on hold * will need a void trail, will wait until more mentally stable * Complete void trial and remove urinary catheter (8) Seizure: Code(s): R56.9 - Unspecified convulsions Status: Acute Assessment and Plan: * Noted to have a short one overnight * Keppra given, and continued * Could be hypernatremia or delirium * Neuro checks *
--- NOTE | 2022-04-06 10:15 | PM.IMPN ---
Progress Note: A&P Assessment and Plan (1) Small bowel obstruction: Code(s): K56.609 - Unspecified intestinal obstruction, unspecified as to partial versus complete obstruction Status: Acute Assessment and Plan: ABD/Pel CT from 04/04/22 showed improved bowel obstruction, chronic bowel enlargement, urinary retention Abdominal x-ray shows persistent dilated small bowel consistent with adynamic ileus vs PSBO from 04/04/2022 Small bowel follow through shows adequate time to get to the colon NG tube removed General surgery consulted, signed off at this time diet increased to low fiber Zofran on board Wonder if the clozapine has something to do with these bowel obstructions, however, it is not formulary here, Uptodate stated that this can be a cause from the blockage of the smooth muscle fibers in the abdomen (2) MARCIA (acute kidney injury): Code(s): N17.9 - Acute kidney failure, unspecified Status: Acute Assessment and Plan: Current BUN and creatinine 10/0.80 Avoid nephrotoxic medications Baseline appears to be 0.9-1.2 Trend labs Probably related to dehydration IV fluids on board Adjust therapy as indicated Urine Studies sodium 19, random urea 339, Creatinine 302.1 FENa score 0.0 (3) Schizophrenia: Code(s): F20.9 - Schizophrenia, unspecified Status: Chronic Assessment and Plan: Trend mood Adjust therapy as indicated Seems to be a stable at this time We don't carry clozapine here The clozapine should be discontinued at this time I did reach out to Dr. Wheeler who saw the patient, recommends keep patient on current medication (4) COPD (chronic obstructive pulmonary disease): Code(s): J44.9 - Chronic obstructive pulmonary disease, unspecified Status: Chronic Assessment and Plan: No acute exacerbation at this time Continue home medications No need for oxygen Nebs ordered (5) Leukocytosis: Code(s): D72.829 - Elevated white blood cell count, unspecified Status: Acute Assessment and Plan: WBC trending down currently at 9.8 CT of the chest/abd/pel indicated urinary retention Urinary catheter inserted No fever, tachypnea No fever Blood cultures NGTD UA does not indicate infection urine cultures not needed DC'd antibiotics at this time, with no indication of infection (6) Hypernatremia: Code(s): E87.0 - Hyperosmolality and hypernatremia Status: Acute Assessment and Plan: NA 145 D5 1/2NS started at 100ml/hr Continue fluid for now trend labs Could be the cause for the seizures (7) BPH (benign prostatic hyperplasia): Code(s): N40.0 - Benign prostatic hyperplasia without lower urinary tract symptoms Status: Acute Assessment and Plan: CT indicates urinary retention Could be from mental state at this point Urinary catheter placed Trend urine output Tamsulosin on hold will need a void trail, will wait until more mentally stable Complete void trial and remove urinary catheter (8) Seizure: Code(s): R56.9 - Unspecified convulsions Status: Acute Assessment and Plan: Noted to have a short one overnight Keppra given, and continued Could be hypernatremia or delirium Neuro checks Neurology consult Ativan ordered PRN for break through seizures (9) CVA (cerebral vascular accident): Code(s): I63.9 - Cerebral infarction, unspecified Status: Chronic Assessment and Plan: Noted on the Head ct Continue to trend Neurology consulted Carotid doppler <50% on right and 50-69% on left (10) Acute metabolic encephalopathy: Code(s): G93.41 - Metabolic encephalopathy Status: Acute Assessment and Plan: Patient had a mental status change Continues to mumble Could be related to hypernatremia, exacerbation of his
--- NOTE | 2022-04-06 10:31 | PCSTNOTE ---
Speech therapy speech language evaluation: Patient's speech is 95% unintelligible to this listener. Nursing reports same. Fluent but incoherent. Occasional intelligible words embedded in stream. Patient unable to imitate or provide short answers at this time. Patient unable to monitor or self correct errors. Ongoing stream of jargon is most likely consistent with disorganized thinking reflective of patient's current mental status. Auditory comprehension is severely impaired, Yes/no responses are unreliable, responded correctly to question are you in the hospital but no others. Compensatory strategies for this patient could include tactile, physical, and verbal cues using gentle and calm approach. Utilize eye contact when addressing patient. Minimize distractions and background noise. Speech therapy is recommended to address functional language expression and bowl sander. Thank you for the referral of this patient. [ End ]
[2022-04-06] MEDS: POTASSIUM CHLORIDE 20 MEQ TABLET 40 MEQ PO (12:21)
[2022-04-06] MEDS: DEXTROSE 5%/0.45% SOD CHL 1,000 ML 100 ML IV CONT (12:54)
[2022-04-06] MEDS: BISACODYL 10 MG SUPPOSITORY RECTAL (13:02)
[2022-04-06 14:00] VITALS: BP 146/87; PULSE 86; RESP 20; TEMP 36.9; O2SAT 94
--- NOTE | 2022-04-06 14:51 | WPDNEUROLOGY ---
Neurology EEG Report General Information Date of Study: 04/05/22 TEST eeg DIAGNOSIS witnessed seizure CONDITION OF RECORDING awake and drowsy EEG NUMBER [id number] CLINICAL HISTORY patient is very confused and unable to follow commands to leave eyes closed and relax. Eyes open and mumbling throughout the whole tracing. EEG DESCRIPTION background rhythm consists of poorly organized low voltage alpha admixed with low-voltage beta activity and multiple movement artifacts and eye movement artifacts. hyperventilation not done. Photic stimulation not done. Non paroxysmal. Nonfocal. Nonlateralizing. IMPRESSION Abnormal record due to the absence of normal background rhythm but there is no evidence of any paroxysmal discharge throughout the tracing clinical correlation recommended.
[2022-04-06 15:13] LABS: Osmolality, Urine 408 mOsm/kg (50-1200)
[2022-04-06] MEDS: MELATONIN 5 MG TABLET PO (20:56)
[2022-04-06 22:00] VITALS: BP 162/86; PULSE 85; RESP 20; TEMP 36.9; O2SAT 93
[2022-04-07 00:03] VITALS: PULSE 92; RESP 18
[2022-04-07] MEDS: ALBUTEROL SULFATE NEB 2.5 MG/3 ML INH 5 MG INHALATION ×2 (00:03→21:08)
[2022-04-07] MEDS: DEXTROSE 5%/0.45% SOD CHL 1,000 ML 100 ML IV CONT (00:15)
[2022-04-07 00:16] VITALS: PULSE 90; RESP 20
[2022-04-07] MEDS: ACETAMINOPHEN 325 MG TABLET 650 MG PO (05:41)
[2022-04-07 05:46] VITALS: BP 150/83; PULSE 75; RESP 18; TEMP 38.1; O2SAT 95
[2022-04-07 07:01] LABS: Basophils Percent Auto 0.5 % (0.2-1.2); Eosinophils Percent Auto 0.4 % (0-4.4); Hemoglobin 10.4 g/dL (14.0-18.0); Immature Granulocyte Absolute 0.13 K/mm3 (0.00-0.031); Immature Granulocyte Percent A 1.7 % (0-0.5); Lymphocytes Absolute Auto 1.57 K/mm3 (0.9-3.2); Lymphocytes Percent Auto 21.1 % (18.3-44.2); Mean Corpuscular HGB Conc 30.6 g/dl (32-36); Mean Corpuscular Hemoglobin 27.9 pg (26-34); Mean Corpuscular Volume 91.2 fl (80-100); Mean Platelet Volume 9.7 fl (7.4-10.4); Monocytes Absolute Auto 0.7 K/mm3 (0.1-0.6); Monocytes Percent Auto 9.7 % (2.6-8.5); Neutrophils Percent Auto 66.6 % (45.5-73.1); Platelet Count Result 318 k/mm3 (150-375); Red Blood Count 3.73 M/mm3 (4.6-6.20); Red Cell Distribution Width 15.1 % (11.5-14.5); White Blood Count 7.4 K/mm3 (4.5-10.0)
[2022-04-07 07:06] LABS: Alanine Aminotransferase 11 U/L (6-50); Albumin Level 3.2 g/dL (3.5-5.1); Alkaline Phosphatase 63 U/L (38-126); Anion Gap 6 mmol/L (8-16); Aspartate Amino Transferase 18 U/L (17-59); Bilirubin,Total 0.3 mg/dL (0.2-1.3); Blood Urea Nitrogen 6 mg/dL (9-20); Calcium 7.8 mg/dL (8.4-10.2); Carbon Dioxide 30 mmol/L (22-30); Chloride 105 mmol/L (98-107); Estimated CRCL calculation 89 ml/min; Estimated Glomerular Filt Rate > 60; Glucose 143 mg/dL (65-110); Magnesium 1.6 mg/dL (1.6-2.3); Potassium 3.1 mmol/L (3.4-5.0); Sodium 141 mmol/L (137-145)
[2022-04-07] MEDS: levETIRAcetam 500MG/NACL 100ML 500 MG/100 ML BAG 400 MG IVPB ×2 (08:09→21:14)
[2022-04-07] MEDS: ENOXAPARIN 30 MG/0.3 ML SYRINGE SUB-Q ×2 (08:13→21:08)
[2022-04-07] MEDS: POTASSIUM CHLORIDE 20 MEQ TABLET 40 MEQ PO (08:14)
[2022-04-07] MEDS: SERTRALINE HCL 25 MG TABLET PO ×2 (08:15→21:09)
[2022-04-07] MEDS: risperiDONE 1 MG TABLET PO ×2 (08:15→21:09)
[2022-04-07] MEDS: MAGNESIUM SULF 4 GM/WATER100ML 4 GM/100 ML BAG IVPB (08:47)
--- NOTE | 2022-04-07 09:30 | PM.IMPN ---
Progress Note: A&P Assessment and Plan (1) Fever: Code(s): R50.9 - Fever, unspecified Status: Acute Assessment and Plan: Temp noted to be 100.6F Repeat blood cultures ordered repeat urine culture ordered Hold on antibiotics as WBC is 7.4 Continue to trend labs and vital signs (2) Small bowel obstruction: Code(s): K56.609 - Unspecified intestinal obstruction, unspecified as to partial versus complete obstruction Status: Acute Assessment and Plan: Seems resolved ABD/Pel CT from 04/04/22 showed improved bowel obstruction, chronic bowel enlargement, urinary retention Abdominal x-ray shows persistent dilated small bowel consistent with adynamic ileus vs PSBO from 04/04/2022 Small bowel follow through shows adequate time to get to the colon NG tube removed General surgery consulted, signed off at this time diet increased to low fiber Zofran on board Wonder if the clozapine has something to do with these bowel obstructions, however, it is not formulary here, Uptodate stated that this can be a cause from the blockage of the smooth muscle fibers in the abdomen (3) MARCIA (acute kidney injury): Code(s): N17.9 - Acute kidney failure, unspecified Status: Acute Assessment and Plan: Seems resolved Current BUN and creatinine 6/0.70 Avoid nephrotoxic medications Baseline appears to be 0.9-1.2 Trend labs Probably related to dehydration IV fluids on board Adjust therapy as indicated Urine Studies sodium 19, random urea 339, Creatinine 302.1 FENa score 0.0 (4) Schizophrenia: Code(s): F20.9 - Schizophrenia, unspecified Status: Chronic Assessment and Plan: Seems to be getting better Trend mood Adjust therapy as indicated Seems to be a stable at this time We don't carry clozapine here The clozapine should be discontinued at this time I did reach out to Dr. Wheeler who saw the patient, recommends keep patient on current medication (5) COPD (chronic obstructive pulmonary disease): Code(s): J44.9 - Chronic obstructive pulmonary disease, unspecified Status: Chronic Assessment and Plan: No acute exacerbation at this time Continue home medications No need for oxygen Nebs ordered (6) Leukocytosis: Code(s): D72.829 - Elevated white blood cell count, unspecified Status: Acute Assessment and Plan: WBC trending down currently at 7.4 CT of the chest/abd/pel indicated urinary retention Urinary catheter inserted No fever, tachypnea No fever Blood cultures NGTD UA does not indicate infection urine cultures not needed DC'd antibiotics at this time, with no indication of infection (7) Hypernatremia: Code(s): E87.0 - Hyperosmolality and hypernatremia Status: Acute Assessment and Plan: NA 144 D5 1/2NS started at 100ml/hr, ok to DC at this point trend labs Could be the cause for the seizures (8) BPH (benign prostatic hyperplasia): Code(s): N40.0 - Benign prostatic hyperplasia without lower urinary tract symptoms Status: Acute Assessment and Plan: CT indicates urinary retention Could be from mental state at this point Trend urine output Tamsulosin on hold will need a void trail, will wait until more mentally stable Complete void trial and remove urinary catheter (9) Seizure: Code(s): R56.9 - Unspecified convulsions Status: Acute Assessment and Plan: Noted to have a short one overnight Keppra given, and continued Could be hypernatremia or delirium Neuro checks Neurology consult Ativan ordered PRN for break through seizures (10) CVA (cerebral vascular accident): Code(s): I63.9 - Cerebral infarction, unspecified Status: Chronic Assessment and Plan: Noted on the Head ct Continue to trend Neurology consulte
--- NOTE | 2022-04-07 09:30 | P.PNIM_ITS ---
Progress Note: A&P Assessment and Plan (1) Fever: Code(s): R50.9 - Fever, unspecified Status: Acute Assessment and Plan: * Temp noted to be 100.6F * Repeat blood cultures ordered * repeat urine culture ordered * Hold on antibiotics as WBC is 7.4 * Continue to trend labs and vital signs (2) Small bowel obstruction: Code(s): K56.609 - Unspecified intestinal obstruction, unspecified as to partial versus complete obstruction Status: Acute Assessment and Plan: * Seems resolved * ABD/Pel CT from 04/04/22 showed improved bowel obstruction, chronic bowel enlargement, urinary retention * Abdominal x-ray shows persistent dilated small bowel consistent with adynamic ileus vs PSBO from 04/04/2022 * Small bowel follow through shows adequate time to get to the colon * NG tube removed * General surgery consulted, signed off at this time * diet increased to low fiber * Zofran on board * Wonder if the clozapine has something to do with these bowel obstructions, however, it is not formulary here, Uptodate stated that this can be a cause from the blockage of the smooth muscle fibers in the abdomen (3) MARCIA (acute kidney injury): Code(s): N17.9 - Acute kidney failure, unspecified Status: Acute Assessment and Plan: * Seems resolved * Current BUN and creatinine 6/0.70 * Avoid nephrotoxic medications * Baseline appears to be 0.9-1.2 * Trend labs * Probably related to dehydration * IV fluids on board * Adjust therapy as indicated * Urine Studies sodium 19, random urea 339, Creatinine 302.1 * FENa score 0.0 (4) Schizophrenia: Code(s): F20.9 - Schizophrenia, unspecified Status: Chronic Assessment and Plan: * Seems to be getting better * Trend mood * Adjust therapy as indicated * Seems to be a stable at this time * We don't carry clozapine here * The clozapine should be discontinued at this time * I did reach out to Dr. Wheeler who saw the patient, recommends keep patient on current medication (5) COPD (chronic obstructive pulmonary disease): Code(s): J44.9 - Chronic obstructive pulmonary disease, unspecified Status: Chronic Assessment and Plan: * No acute exacerbation at this time * Continue home medications * No need for oxygen * Nebs ordered (6) Leukocytosis: Code(s): D72.829 - Elevated white blood cell count, unspecified Status: Acute Assessment and Plan: * WBC trending down currently at 7.4 * CT of the chest/abd/pel indicated urinary retention * Urinary catheter inserted * No fever, tachypnea * No fever * Blood cultures NGTD * UA does not indicate infection urine cultures not needed * DC'd antibiotics at this time, with no indication of infection (7) Hypernatremia: Code(s): E87.0 - Hyperosmolality and hypernatremia Status: Acute Assessment and Plan: * NA 144 * D5 1/2NS started at 100ml/hr, ok to DC at this point * trend labs * Could be the cause for the seizures (8) BPH (benign prostatic hyperplasia): Code(s): N40.0 - Benign prostatic hyperplasia without lower urinary tract symptoms Status: Acute Assessment and Plan: * CT indicates urinary retention * Could be from mental state at this point * Trend urine output * Tamsulosin on hold * will need a void trail, will wait until more mentally
[2022-04-07 14:24] VITALS: BP 144/87; PULSE 82; RESP 14; TEMP 36.8; O2SAT 94
[2022-04-07] MEDS: MELATONIN 5 MG TABLET 10 MG PO (21:10)
[2022-04-07 22:00] VITALS: BP 160/79; PULSE 93; RESP 17; TEMP 36.4; O2SAT 92
[2022-04-08 05:30] VITALS: BP 158/73; PULSE 88; RESP 20; TEMP 36.7; O2SAT 94
[2022-04-08 06:46] LABS: Basophils Percent Auto 0.4 % (0.2-1.2); Eosinophils Percent Auto 0.3 % (0-4.4); Hemoglobin 10.5 g/dL (14.0-18.0); Immature Granulocyte Absolute 0.17 K/mm3 (0.00-0.031); Immature Granulocyte Percent A 1.7 % (0-0.5); Lymphocytes Absolute Auto 1.45 K/mm3 (0.9-3.2); Lymphocytes Percent Auto 14.4 % (18.3-44.2); Mean Corpuscular HGB Conc 30.9 g/dl (32-36); Mean Corpuscular Hemoglobin 28.2 pg (26-34); Mean Corpuscular Volume 91.2 fl (80-100); Mean Platelet Volume 9.8 fl (7.4-10.4); Monocytes Absolute Auto 0.8 K/mm3 (0.1-0.6); Monocytes Percent Auto 7.7 % (2.6-8.5); Neutrophils Absolute Auto 7.6 K/mm3 (1.3-6.7); Neutrophils Percent Auto 75.5 % (45.5-73.1); Platelet Count Result 340 k/mm3 (150-375); Red Blood Count 3.73 M/mm3 (4.6-6.20); Red Cell Distribution Width 14.7 % (11.5-14.5); White Blood Count 10.1 K/mm3 (4.5-10.0)
[2022-04-08 07:12] LABS: Alanine Aminotransferase 12 U/L (6-50); Albumin Level 3.3 g/dL (3.5-5.1); Alkaline Phosphatase 67 U/L (38-126); Anion Gap 9 mmol/L (8-16); Aspartate Amino Transferase 26 U/L (17-59); Bilirubin,Total 0.4 mg/dL (0.2-1.3); Blood Urea Nitrogen 7 mg/dL (9-20); Calcium 7.9 mg/dL (8.4-10.2); Carbon Dioxide 28 mmol/L (22-30); Chloride 107 mmol/L (98-107); Estimated CRCL calculation 89 ml/min; Estimated Glomerular Filt Rate > 60; Glucose 105 mg/dL (65-110); Magnesium 1.9 mg/dL (1.6-2.3); Potassium 3.2 mmol/L (3.4-5.0); Sodium 144 mmol/L (137-145)
[2022-04-08 08:08] LABS: Clozapine 43 mcg/L; Norclozapine 91 mcg/L (25-400)
[2022-04-08] MEDS: risperiDONE 1 MG TABLET PO ×2 (10:02→20:32)
[2022-04-08] MEDS: ENOXAPARIN 30 MG/0.3 ML SYRINGE SUB-Q ×2 (10:02→20:32)
[2022-04-08] MEDS: SERTRALINE HCL 25 MG TABLET PO ×2 (10:02→20:32)
[2022-04-08] MEDS: levETIRAcetam 500MG/NACL 100ML 500 MG/100 ML BAG 400 MG IVPB (10:05)
--- NOTE | 2022-04-08 10:15 | PM.IMPN ---
Progress Note: A&P Assessment and Plan (1) Fever: Code(s): R50.9 - Fever, unspecified Status: Acute Assessment and Plan: Temp noted to be 100.6F on 04/07/22, currently stable at 98.1 Repeat blood cultures NGTD repeat urine culture still pending WBC is 10.1 Could be from the urinary catheter Start ceftriaxone daily for now Continue to trend labs and vital signs (2) Small bowel obstruction: Code(s): K56.609 - Unspecified intestinal obstruction, unspecified as to partial versus complete obstruction Status: Acute Assessment and Plan: Seems resolved ABD/Pel CT from 04/04/22 showed improved bowel obstruction, chronic bowel enlargement, urinary retention Abdominal x-ray shows persistent dilated small bowel consistent with adynamic ileus vs PSBO from 04/04/2022 Small bowel follow through shows adequate time to get to the colon NG tube removed General surgery consulted, signed off at this time diet increased to low fiber Zofran on board Wonder if the clozapine has something to do with these bowel obstructions, however, it is not formulary here, Uptodate stated that this can be a cause from the blockage of the smooth muscle fibers in the abdomen (3) MARCIA (acute kidney injury): Code(s): N17.9 - Acute kidney failure, unspecified Status: Acute Assessment and Plan: Seems resolved Current BUN and creatinine 7/0.70 Avoid nephrotoxic medications Baseline appears to be 0.9-1.2 Trend labs Probably related to dehydration IV fluids on board Adjust therapy as indicated Urine Studies sodium 19, random urea 339, Creatinine 302.1 FENa score 0.0 (4) Schizophrenia: Code(s): F20.9 - Schizophrenia, unspecified Status: Chronic Assessment and Plan: Seems to be getting better Trend mood Adjust therapy as indicated Seems to be a stable at this time We don't carry clozapine here The clozapine should be discontinued at this time I did reach out to Dr. Wheeler who saw the patient, recommends keep patient on current medication (5) COPD (chronic obstructive pulmonary disease): Code(s): J44.9 - Chronic obstructive pulmonary disease, unspecified Status: Chronic Assessment and Plan: No acute exacerbation at this time Continue home medications No need for oxygen Nebs ordered (6) Leukocytosis: Code(s): D72.829 - Elevated white blood cell count, unspecified Status: Acute Assessment and Plan: WBC trending back up and is currently 10.1 CT of the chest/abd/pel indicated urinary retention 04/04/22 Urinary catheter dc'd at this time Fever noted yesterday Blood cultures NGTD UA repeated and is still pending DC'd antibiotics at this time, with no indication of infection (7) Hypernatremia: Code(s): E87.0 - Hyperosmolality and hypernatremia Status: Acute Assessment and Plan: Resolved NA 144 D5 1/2NS started at 100ml/hr, ok to DC at this point trend labs Could be the cause for the seizures (8) BPH (benign prostatic hyperplasia): Code(s): N40.0 - Benign prostatic hyperplasia without lower urinary tract symptoms Status: Acute Assessment and Plan: CT indicates urinary retention Could be from mental state at this point Trend urine output Tamsulosin on hold will need a void trail, will wait until more mentally stable Complete void trial and remove urinary catheter (9) Seizure: Code(s): R56.9 - Unspecified convulsions Status: Acute Assessment and Plan: Noted to have a short one overnight Keppra converted to PO 250mg BID Could be hypernatremia or delirium Neuro checks Neurology consult Ativan ordered PRN for break through seizures (10) CVA (cerebral vascular accident): Code(s): I63.9 - Cerebral infarction, unspecified Status: [employer]
--- NOTE | 2022-04-08 10:15 | P.PNIM_ITS ---
Progress Note: A&P Assessment and Plan (1) Fever: Code(s): R50.9 - Fever, unspecified Status: Acute Assessment and Plan: * Temp noted to be 100.6F on 04/07/22, currently stable at 98.1 * Repeat blood cultures NGTD * repeat urine culture still pending * WBC is 10.1 * Could be from the urinary catheter * Start ceftriaxone daily for now * Continue to trend labs and vital signs (2) Small bowel obstruction: Code(s): K56.609 - Unspecified intestinal obstruction, unspecified as to partial versus complete obstruction Status: Acute Assessment and Plan: * Seems resolved * ABD/Pel CT from 04/04/22 showed improved bowel obstruction, chronic bowel enlargement, urinary retention * Abdominal x-ray shows persistent dilated small bowel consistent with adynamic ileus vs PSBO from 04/04/2022 * Small bowel follow through shows adequate time to get to the colon * NG tube removed * General surgery consulted, signed off at this time * diet increased to low fiber * Zofran on board * Wonder if the clozapine has something to do with these bowel obstructions, however, it is not formulary here, Uptodate stated that this can be a cause from the blockage of the smooth muscle fibers in the abdomen (3) MARCIA (acute kidney injury): Code(s): N17.9 - Acute kidney failure, unspecified Status: Acute Assessment and Plan: * Seems resolved * Current BUN and creatinine 7/0.70 * Avoid nephrotoxic medications * Baseline appears to be 0.9-1.2 * Trend labs * Probably related to dehydration * IV fluids on board * Adjust therapy as indicated * Urine Studies sodium 19, random urea 339, Creatinine 302.1 * FENa score 0.0 (4) Schizophrenia: Code(s): F20.9 - Schizophrenia, unspecified Status: Chronic Assessment and Plan: * Seems to be getting better * Trend mood * Adjust therapy as indicated * Seems to be a stable at this time * We don't carry clozapine here * The clozapine should be discontinued at this time * I did reach out to Dr. Wheeler who saw the patient, recommends keep patient on current medication (5) COPD (chronic obstructive pulmonary disease): Code(s): J44.9 - Chronic obstructive pulmonary disease, unspecified Status: Chronic Assessment and Plan: * No acute exacerbation at this time * Continue home medications * No need for oxygen * Nebs ordered (6) Leukocytosis: Code(s): D72.829 - Elevated white blood cell count, unspecified Status: Acute Assessment and Plan: * WBC trending back up and is currently 10.1 * CT of the chest/abd/pel indicated urinary retention 04/04/22 * Urinary catheter dc'd at this time * Fever noted yesterday * Blood cultures NGTD * UA repeated and is still pending * DC'd antibiotics at this time, with no indication of infection (7) Hypernatremia: Code(s): E87.0 - Hyperosmolality and hypernatremia Status: Acute Assessment and Plan: * Resolved * NA 144 * D5 1/2NS started at 100ml/hr, ok to DC at this point * trend labs * Could be the cause for the seizures (8) BPH (benign prostatic hyperplasia): Code(s): N40.0 - Benign prostatic hyperplasia without lower urinary tract symptoms Status: Acute Assessment and Plan: * CT indicates urinary retention * Could be from mental state at this point * Alejandro
[2022-04-08 10:57] VITALS: BMI 29.8
[2022-04-08 14:46] VITALS: BP 142/74; PULSE 85; RESP 14; TEMP 36.9; O2SAT 93
[2022-04-08] MEDS: levETIRAcetam 250 MG TABLET PO (20:32)
[2022-04-08] MEDS: MELATONIN 5 MG TABLET 10 MG PO (20:32)
[2022-04-08 21:27] VITALS: BP 148/75; PULSE 85; RESP 20; TEMP 36.6; O2SAT 91
[2022-04-09 05:24] LABS: Basophils Absolute Auto 0.1 K/mm3 (0.0-0.1); Basophils Percent Auto 0.4 % (0.2-1.2); Eosinophils Absolute Auto 0.1 K/mm3 (0-0.3); Eosinophils Percent Auto 0.4 % (0-4.4); Hematocrit 33.6 % (42.0-52.0); Hemoglobin 10.2 g/dL (14.0-18.0); Immature Granulocyte Percent A 1.7 % (0-0.5); Lymphocytes Absolute Auto 1.65 K/mm3 (0.9-3.2); Lymphocytes Percent Auto 14.4 % (18.3-44.2); Mean Corpuscular HGB Conc 30.4 g/dl (32-36); Mean Corpuscular Hemoglobin 27.8 pg (26-34); Mean Corpuscular Volume 91.6 fl (80-100); Mean Platelet Volume 9.6 fl (7.4-10.4); Monocytes Absolute Auto 0.7 K/mm3 (0.1-0.6); Monocytes Percent Auto 5.7 % (2.6-8.5); Neutrophils Absolute Auto 8.9 K/mm3 (1.3-6.7); Neutrophils Percent Auto 77.4 % (45.5-73.1); Platelet Count Result 353 k/mm3 (150-375); Red Blood Count 3.67 M/mm3 (4.6-6.20); Red Cell Distribution Width 14.7 % (11.5-14.5); White Blood Count 11.5 K/mm3 (4.5-10.0)
[2022-04-09 05:25] VITALS: BP 159/65; PULSE 82; RESP 18; TEMP 36.8; O2SAT 95
[2022-04-09 05:41] LABS: Alanine Aminotransferase 14 U/L (6-50); Albumin Level 3.3 g/dL (3.5-5.1); Alkaline Phosphatase 74 U/L (38-126); Anion Gap 13 mmol/L (8-16); Aspartate Amino Transferase 28 U/L (17-59); Bilirubin,Total 0.5 mg/dL (0.2-1.3); Blood Urea Nitrogen 9 mg/dL (9-20); Calcium 8.2 mg/dL (8.4-10.2); Carbon Dioxide 24 mmol/L (22-30); Chloride 108 mmol/L (98-107); Estimated CRCL calculation 102 ml/min; Estimated Glomerular Filt Rate > 60; Glucose 80 mg/dL (65-110); Magnesium 1.8 mg/dL (1.6-2.3); Potassium 3.2 mmol/L (3.4-5.0); Sodium 145 mmol/L (137-145)
--- NOTE | 2022-04-09 08:00 | PM.DS ---
DS: Admitting Diagnosis Discharge Date 04/09/22 0800 Admitting Diagnosis Recurrent Bowel Obstruction/acute metabolic encephalopathy DS: Discharge Diagnosis Discharge Diagnosis (1) Fever: Code(s): R50.9 - Fever, unspecified Status: Acute Assessment and Plan: Temp noted to be 100.6F on 04/07/22, currently stable at 98.3 No fever over the last 48 hours Repeat blood cultures NGTD repeat urine culture no growth WBC is 11.5 No indication for antibiotics at this time Continue to trend labs and vital signs (2) Small bowel obstruction: Code(s): K56.609 - Unspecified intestinal obstruction, unspecified as to partial versus complete obstruction Status: Acute Assessment and Plan: Seems resolved ABD/Pel CT from 04/04/22 showed improved bowel obstruction, chronic bowel enlargement, urinary retention Abdominal x-ray shows persistent dilated small bowel consistent with adynamic ileus vs PSBO from 04/04/2022 Small bowel follow through shows adequate time to get to the colon NG tube removed General surgery consulted, signed off at this time diet increased to low fiber Zofran on board Wonder if the clozapine has something to do with these bowel obstructions, however, it is not formulary here, Uptodate stated that this can be a cause from the blockage of the smooth muscle fibers in the abdomen (3) MARCIA (acute kidney injury): Code(s): N17.9 - Acute kidney failure, unspecified Status: Acute Assessment and Plan: Seems resolved Current BUN and creatinine 7/0.70 Avoid nephrotoxic medications Baseline appears to be 0.9-1.2 Trend labs Probably related to dehydration IV fluids on board Adjust therapy as indicated Urine Studies sodium 19, random urea 339, Creatinine 302.1 FENa score 0.0 (4) Schizophrenia: Code(s): F20.9 - Schizophrenia, unspecified Status: Chronic Assessment and Plan: Seems to be getting better Trend mood Adjust therapy as indicated Seems to be a stable at this time We don't carry clozapine here The clozapine should be discontinued at this time I did reach out to Dr. Wheeler who saw the patient, recommends keep patient on current medication (5) COPD (chronic obstructive pulmonary disease): Code(s): J44.9 - Chronic obstructive pulmonary disease, unspecified Status: Chronic Assessment and Plan: No acute exacerbation at this time Continue home medications No need for oxygen Nebs ordered (6) Leukocytosis: Code(s): D72.829 - Elevated white blood cell count, unspecified Status: Acute Assessment and Plan: WBC trending back up and is currently 11.5 CT of the chest/abd/pel indicated urinary retention 04/04/22 Urinary catheter dc'd at this time Fever resolved Blood cultures NGTD UA repeated shows no growth DC'd antibiotics at this time, with no indication of infection (7) Hypernatremia: Code(s): E87.0 - Hyperosmolality and hypernatremia Status: Acute Assessment and Plan: Resolved NA 145 trend labs Could be the cause for the seizures (8) BPH (benign prostatic hyperplasia): Code(s): N40.0 - Benign prostatic hyperplasia without lower urinary tract symptoms Status: Acute Assessment and Plan: CT indicates urinary retention Could be from mental state at this point Trend urine output Tamsulosin on hold will need a void trail, will wait until more mentally stable Complete void trial and remove urinary catheter (9) Seizure: Code(s): R56.9 - Unspecified convulsions Status: Acute Assessment and Plan: Noted to have a short one overnight Keppra converted to PO 250mg BID Could be hypernatremia or delirium Neuro checks Neurology consult Ativan ordered PRN for break through seizures (10) CVA (cerebral vascular accident
--- NOTE | 2022-04-09 08:00 | P.DS_ITS ---
DS: Admitting Diagnosis Discharge Date 04/09/22 0800 Admitting Diagnosis Recurrent Bowel Obstruction/acute metabolic encephalopathy DS: Discharge Diagnosis Discharge Diagnosis (1) Fever: Code(s): R50.9 - Fever, unspecified Status: Acute Assessment and Plan: * Temp noted to be 100.6F on 04/07/22, currently stable at 98.3 * No fever over the last 48 hours * Repeat blood cultures NGTD * repeat urine culture no growth * WBC is 11.5 * No indication for antibiotics at this time * Continue to trend labs and vital signs (2) Small bowel obstruction: Code(s): K56.609 - Unspecified intestinal obstruction, unspecified as to partial versus complete obstruction Status: Acute Assessment and Plan: * Seems resolved * ABD/Pel CT from 04/04/22 showed improved bowel obstruction, chronic bowel enlargement, urinary retention * Abdominal x-ray shows persistent dilated small bowel consistent with adynamic ileus vs PSBO from 04/04/2022 * Small bowel follow through shows adequate time to get to the colon * NG tube removed * General surgery consulted, signed off at this time * diet increased to low fiber * Zofran on board * Wonder if the clozapine has something to do with these bowel obstructions, however, it is not formulary here, Uptodate stated that this can be a cause from the blockage of the smooth muscle fibers in the abdomen (3) MARCIA (acute kidney injury): Code(s): N17.9 - Acute kidney failure, unspecified Status: Acute Assessment and Plan: * Seems resolved * Current BUN and creatinine 7/0.70 * Avoid nephrotoxic medications * Baseline appears to be 0.9-1.2 * Trend labs * Probably related to dehydration * IV fluids on board * Adjust therapy as indicated * Urine Studies sodium 19, random urea 339, Creatinine 302.1 * FENa score 0.0 (4) Schizophrenia: Code(s): F20.9 - Schizophrenia, unspecified Status: Chronic Assessment and Plan: * Seems to be getting better * Trend mood * Adjust therapy as indicated * Seems to be a stable at this time * We don't carry clozapine here * The clozapine should be discontinued at this time * I did reach out to Dr. Wheeler who saw the patient, recommends keep patient on current medication (5) COPD (chronic obstructive pulmonary disease): Code(s): J44.9 - Chronic obstructive pulmonary disease, unspecified Status: Chronic Assessment and Plan: * No acute exacerbation at this time * Continue home medications * No need for oxygen * Nebs ordered (6) Leukocytosis: Code(s): D72.829 - Elevated white blood cell count, unspecified Status: Acute Assessment and Plan: * WBC trending back up and is currently 11.5 * CT of the chest/abd/pel indicated urinary retention 04/04/22 * Urinary catheter dc'd at this time * Fever resolved * Blood cultures NGTD * UA repeated shows no growth * DC'd antibiotics at this time, with no indication of infection (7) Hypernatremia: Code(s): E87.0 - Hyperosmolality and hypernatremia Status: Acute Assessment and Plan: * Resolved * NA 145 * trend labs * Could be the cause for the seizures (8) BPH (benign prostatic hyperplasia): Code(s): N40.0 - Benign prostatic hyperplasia without lower urinary tract symptoms Status: Acute Assessment and Kavin
[2022-04-09] MEDS: risperiDONE 1 MG TABLET PO (08:51)
[2022-04-09] MEDS: ENOXAPARIN 30 MG/0.3 ML SYRINGE SUB-Q (08:51)
[2022-04-09] MEDS: SERTRALINE HCL 25 MG TABLET PO (08:51)
[2022-04-09] MEDS: levETIRAcetam 250 MG TABLET PO (08:51)
[2022-04-09] MEDS: MAGNESIUM SULF 2 GM/WATER 50ML 2 GM/50 ML BAG IVPB (08:51)
[2022-04-09] MEDS: POTASSIUM CHLORIDE 20 MEQ TABLET 40 MEQ PO (08:51)
[2022-04-09 14:00] VITALS: BP 157/62; PULSE 86; RESP 20; TEMP 36.4; O2SAT 90
[2022-04-09 14:09] LABS: EDCOVIDSCREEN Negative (Negative)
== END 2022-04-09 14:45 | DRG 388 ==
LOC: ANHED 22:36 → ANH3MEDSUR 23:56
PROVIDERS: Nurse Practitioner; Physician Assistant; Psychiatry & Neurology Psychiatry; Surgery; Admitting Provider Internal Medicine; Emergency Provider Emergency Medicine; Visit Provider Nurse Practitioner
DX: K56.699 Other intestinal obstruction unspecified as to partial versus complete obstruction (principal); G93.41 Metabolic encephalopathy; N17.9 Acute kidney failure, unspecified; E87.0 Hyperosmolality and hypernatremia; T42.4X5A Adverse effect of benzodiazepines, initial encounter; K59.00 Constipation, unspecified; E78.5 Hyperlipidemia, unspecified; F03.90 Unspecified dementia, unspecified severity, without behavioral disturbance, psychotic disturbance, mood disturbance, and anxiety; F41.9 Anxiety disorder, unspecified; F95.2 Tourette's disorder; F20.9 Schizophrenia, unspecified; J44.9 Chronic obstructive pulmonary disease, unspecified; N40.1 Benign prostatic hyperplasia with lower urinary tract symptoms; R33.8 Other retention of urine; R56.9 Unspecified convulsions; R50.9 Fever, unspecified; E87.8 Other disorders of electrolyte and fluid balance, not elsewhere classified; D72.829 Elevated white blood cell count, unspecified; Z20.822 Contact with and (suspected) exposure to COVID-19; Z66 Do not resuscitate; Z79.899 Other long term (current) drug therapy; Z86.73 Personal history of transient ischemic attack (TIA), and cerebral infarction without residual deficits
CPT/HCPCS: 36415; 70450; 71045; 71275; 74018; 74174; 74176; 74250; 80048; 80053; 80159; 81001; 82140; 82306; 82550; 82570; 82607; 82746; 82948; 83036; 83605; 83735; 83935; 84146; 84300; 84540; 85025; 85027; 87040; 87086; 87426; 92507; 92523; 92610; 93005; 93880; 94640; 95816; 96360; 96361; 97110; 97116; 97161; 97165; 97535; 99285; A9270; C9803; G0378; J0692; J0696; J1644; J1650; J1953; J3370; J3475; J7030; J7120; Q9967; U0003; U0005

== ENCOUNTER 2022-07-11 10:51 | Emergency (ER) | payer MEDICARE, MEDICAID, SELFPAY ==
[2022-07-11] VITALS (10 sets, daily range): BP systolic 121–134; BP diastolic 69–81; PULSE 81–96; RESP 15–25; O2SAT 96–99
--- NOTE | ~2022-07-11 | XR_ITS ---
XR chest 1V portable DATE: 07/11/2022 11:14 INDICATION: Altered mental state TECHNIQUE: Portable AP chest on 07/11/2022 at 1111 hours/ COMPARISON: 04/04/2022 CTA chest 04/04/2022 portable AP chest FINDINGS: Heart size appears within normal range. There is mild aortic unfolding. No hilar or mediast inal enlargement is evident. There is mild bibasilar infiltrate or atelectasis. The lungs otherwise appear clear. No pulmonary vas cular congestion or apparent pleural effusion. No pneumothorax. IMPRESSION: Mild bibasilar infiltrate or atelectasis Reviewed, dictated and finalized at location A. [facility] [employer]
[2022-07-11 11:45] LABS: Basophils Percent Auto 0.3 % (0.2-1.2); Eosinophils Percent Auto 0.3 % (0-4.4); Hematocrit 45.1 % (42.0-52.0); Hemoglobin 14.1 g/dL (14.0-18.0); Immature Granulocyte Absolute 0.03 K/mm3 (0.00-0.031); Immature Granulocyte Percent A 0.3 % (0-0.5); Lymphocytes Absolute Auto 1.19 K/mm3 (0.9-3.2); Lymphocytes Percent Auto 11.7 % (18.3-44.2); Mean Corpuscular HGB Conc 31.3 g/dl (32-36); Mean Corpuscular Hemoglobin 26.6 pg (26-34); Mean Corpuscular Volume 85.1 fl (80-100); Mean Platelet Volume 9.5 fl (7.4-10.4); Monocytes Absolute Auto 0.5 K/mm3 (0.1-0.6); Monocytes Percent Auto 4.4 % (2.6-8.5); Neutrophils Absolute Auto 8.4 K/mm3 (1.3-6.7); Platelet Count Result 305 k/mm3 (150-375); Red Cell Distribution Width 14.8 % (11.5-14.5); White Blood Count 10.2 K/mm3 (4.5-10.0)
[2022-07-11 11:58] LABS: Anion Gap 10 mmol/L (8-16); Blood Urea Nitrogen 16 mg/dL (9-20); Carbon Dioxide 26 mmol/L (22-30); Chloride 107 mmol/L (98-107); Estimated Glomerular Filt Rate > 60; Glucose 140 mg/dL (65-110); Sodium 143 mmol/L (137-145)
[2022-07-11 12:11] LABS: Appearance Urine Clear (Clear); Bilirubin Urine 1+ (Negative); Blood Urine Negative (Negative); Color Urine Yellow (Yellow); Glucose Urine UA Negative (Negative); Ketones Urine Negative (Negative); Leukocyte Esterase Ur Negative LEU/UL (Negative); Nitrate Urine Negative (Negative); Protein Urine 1+ mg/dL (Negative); Specific Grav Ur 1.025 (1.001-1.035)
[2022-07-11 12:18] LABS: Mucus Urine Rare /lpf; WBC Urine 0-3 /hpf
[2022-07-11 12:19] LABS: Add Urine Microscopic? YES
--- NOTE | 2022-07-11 12:55 | ED.GENADULT ---
HPI - General Adult General Chief complaint: Unspecified Stated complaint: lethargic was unresponsive per staff Time Seen by Provider: 07/11/22 11:00 History of Present Illness HPI narrative: Patient is a 71-year-old male who [facility] apparently being [facility]. At baseline patient is alert and oriented x0. He has dementia and schizophrenia. EMS arrived and patient was awake. He had normal vital signs. Patient has no complaints and appears to be in no distress however he is nonverbal. He is a DNR as well. Related Data Home Medications Medication Instructions Recorded Confirmed fenofibrate micronized 67 mg 67 mg PO DAILY 07/16/20 04/01/22 capsule risperidone 1 mg tablet 1 mg PO BID 07/16/20 04/01/22 sertraline 25 mg tablet 25 mg PO BID 07/16/20 04/01/22 docusate sodium 100 mg tablet 100 mg PO BID 07/17/20 04/01/22 folic acid 1 mg tablet 1 mg PO DAILY 07/17/20 04/01/22 omega 3-mgr-ajf-fish oil 1,000 mg 2 cap PO TID 07/17/20 04/01/22 (120 mg-180 mg) capsule (Fish Oil) acetaminophen 325 mg tablet 650 mg PO Q6H PRN fever or pain 04/01/22 04/01/22 (Tylenol) Allergies Allergy/AdvReac Type Severity Reaction Status Date / Time doxycycline Allergy Intermediate Rash Verified 03/31/22 20:09 Review of Systems Review of Systems: ROS unobtainable: Yes unobtainable due to mental status PMFSH Past Medical History Medical History Anxiety Dementia Dysphagia Hyperlipidemia Schizophrenia Tourettes disease Surgical History Surgical History No pertinent past surgical history Family History Family History Father Coronary artery disease CHF (congestive heart failure) Mother Coronary artery disease Sibling Coronary artery disease Sibling Multiple sclerosis Social History Social History Social History: Mr. Youssef is a group home resident at [facility]. He has been there for 20 years. His parents are and he has two siblings. He is a current smoker and smokes approximately 1-2 packs per week. He does not drink alcohol or use illicit substances. His sister, Jemima Dickerson, is his POA. 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 Years smoked: 50 Smoking status: Light tobacco smoker Second hand tobacco smoke exposure: Yes Alcohol intake: never Substance use: never Gender identity (if verbalized by the patient): Male Spiritual care concerns: No Exam Narrative: GENERAL: Well-appearing, well-nourished, and in no acute distress. HEAD: Normocephalic, atraumatic. EYES: PERRL and EOMI. ENT: Mucous membranes moist. CHEST: Clear to auscultation. No respiratory distress. HEART: Regular rate and rhythm. Normal peripheral pulses. ABDOMEN: Soft, nontender, nondistended. EXTREMITIES: Normal range of motion. No edema. SKIN: Warm, dry, no rash. NEURO: Alert and oriented x0. Course Course Emergency Course: Unremarkable exam, lab work also unremarkable with exception of nonspecific elevation white count. Patient up and ambulatory without issue. Discharge back to penitentiary. Vital Signs Vital signs: Vital Signs Pulse Rate 96 07/11/22 10:46 Pulse Rate 89 07/11/22 11:45 Respiratory Rate 20 07/11/22 11:45 Blood Pressure 122/77 07/11/22 11:45 Pulse Oximetry 97 07/11/22 11:45 Medical Decision Making Vital Signs Vital Signs: Vital Signs Pulse Rate 96 07/11/22 10:46 Pulse Rate 89 07/11/22 11:45 Respiratory Rate 20 07/11/22 11:45 Blood Pressure 122/77 07/11/22 11:45 Pulse Oximetry 97 07/11/22 11:45 Lab Data Result diagrams: 07/11/22 11:35 07/11/22 11:35 Labs: Lab Results 07/11/22 07/11/22 07/11/22 Range/Units 11:35 11:35 11:35 WBC 10.2 H (4.5-10.0
== END 2022-07-11 13:05 ==
PROVIDERS: Emergency Provider Emergency Medicine
DX: F03.90 Unspecified dementia, unspecified severity, without behavioral disturbance, psychotic disturbance, mood disturbance, and anxiety (principal); E78.5 Hyperlipidemia, unspecified; F95.2 Tourette's disorder; F41.9 Anxiety disorder, unspecified; F20.9 Schizophrenia, unspecified; F17.210 Nicotine dependence, cigarettes, uncomplicated; Z66 Do not resuscitate
CPT/HCPCS: 36415; 51701; 71045; 80048; 81001; 85025; 99283